=== PATIENT | male | born 1960 | race Caucasian/White ===

== ENCOUNTER 2017-06-16 09:22 | Inpatient (IN) ==
[2017-06-16] MEDS ORDERED: ASPIRIN 325 MG TABLET PO STA (10:12)
[2017-06-16] MEDS ORDERED: ACETAMINOPHEN 325 MG TABLET PO PRN (10:49)
[2017-06-16] MEDS ORDERED: KETOROLAC 15 MG/1 ML VIAL IV PRN (10:49)
[2017-06-16] MEDS ORDERED: ONDANSETRON 4 MG/2 ML VIAL IV PRN ×2 (10:49→13:58)
[2017-06-16] MEDS ORDERED: PIPERACILLIN/TAZOBACTAM 3,375 MG in SODIUM CHLORIDE 0.9% 100 ML IV SCH (11:00)
[2017-06-16] MEDS ORDERED: DEXTROSE 5% NACL 0.45% 1,000 ML IV SCH (11:00)
[2017-06-16] MEDS ORDERED: ASPIRIN 325 MG TABLET ONE (11:09)
[2017-06-16 11:26] LABS: Basophils # 0.1 10*3/uL (0.0-0.2); Basophils % 0.5 % (0.0-0.8); Eosinophils # 0.1 10*3/uL (0.0-0.87); Eosinophils % 0.4 % (0.00-10.9); Hematocrit 46.8 VOL% (42.0-52.0); Hemoglobin 16.3 GM/DL (14.0-18.0); Immature Granulocytes % 0.6 %; Immature Granulocytes Absolute 0.11 #; Lymphocytes # 1.9 10*3/uL (1.4-4.0); Lymphocytes % 9.9 % (21.2-54.2); Mean Corpuscular HGB Conc 34.8 GM/DL (32-36); Mean Corpuscular Hemoglobin 33 PG (27-34); Mean Corpuscular Volume 94.2 FL (87-102); Mean Platelet Volume 9.7 FL (9.6-12.0); Monocytes # 1.1 10*3/uL (0.11-0.8); Monocytes % 5.6 % (1.7-12.7); Neutrophils # 15.9 10*3/uL (1.4-7.4); Platelet Count 289 T/CUMM (130-400); Red Blood Count 4.97 MC/CUMM (3.8-5.5); Red Cell Distribution Width 13.2 % (9.3-17.3); White Blood Count 19.2 T/CUMM (4-12)
[2017-06-16 12:08] LABS: Albumin 3.6 G/DL (3.4-5.0); Bilirubin,Total 0.5 MG/DL (0.2-1.0); Osmolality,Calculated 280.4 MOS/KG (273-304); Potassium 4.1 MMOL/L (3.5-5.1); Total Protein 6.4 G/DL (6.4-8.3)
[2017-06-16 12:09] LABS: Troponin I Only < 0.015 NG/ML (0.00-0.045)
[2017-06-16] MEDS ORDERED: IPRATROPIUM 500 MCG/2.5 ML NEB RESP TX PRN (12:51)
[2017-06-16 13:02] LABS: ABG HCO3 25.3 MMOL/L (20-26); ABG Oxygen Saturation 97.6 % (95-100); ABG PH 7.333 (7.35-7.45); ABG PO2 96.9 MM HG (80-95); ABG TCO2 23.9 MMOL/L (23-27); Allen Test Positive
[2017-06-16] MEDS: HYDROmorphone 2 MG/1 ML VIAL IV PRN ×5 (13:02→22:35)
[2017-06-16] MEDS: ALBUTEROL 2.5 MG/3 ML NEB RESP TX SCH ×4 (13:03→22:00)
[2017-06-16] MEDS: THEOPHYLLINE ER 300 MG TABLET PO SCH (13:33)
[2017-06-16] MEDS: DEXTROSE 5% NACL 0.45% 1,000 ML IV SCH ×2 (14:12→22:46)
[2017-06-16] MEDS: PANTOPRAZOLE 40 MG TABLET PO SCH (14:19)
[2017-06-16] MEDS: PIPERACILLIN/TAZOBACTAM 3,375 MG in SODIUM CHLORIDE 0.9% 100 ML IV SCH ×2 (15:33→23:59)
[2017-06-16 16:06] LABS: ABG Base Excess 1.4 MMOL/L (-2.5-2.5); ABG HCO3 25.6 MMOL/L (20-26); ABG Oxygen Saturation 97.1 % (95-100); ABG PCO2 59.8 MM HG (35-48); ABG PH 7.308 (7.35-7.45); ABG PO2 97.8 MM HG (80-95); ABG TCO2 25.4 MMOL/L (23-27)
[2017-06-16] MEDS: DICLOFENAC 1% GEL 100 GM TUBE TOP SCH ×3 (18:22→20:48)
[2017-06-16] MEDS: KETOROLAC 15 MG/1 ML VIAL IV PRN (19:55)
[2017-06-16] MEDS: traZODone 50 MG TABLET PO SCH (20:34)
[2017-06-16] MEDS: GLYCOPYRROLATE INH SCH (20:36)
[2017-06-16] MEDS: FORMOTEROL FUM INH SCH (20:36)
[2017-06-16] MEDS: FLUTICASONE 50 MCG NASAL SPRAY 16 GM BOTTLE BOTH NARES SCH (20:43)
[2017-06-17] MEDS: HYDROmorphone 2 MG/1 ML VIAL IV PRN ×6 (00:29→14:08)
[2017-06-17] MEDS: KETOROLAC 15 MG/1 ML VIAL IV PRN ×2 (02:40→12:09)
[2017-06-17] MEDS: ALBUTEROL 2.5 MG/3 ML NEB RESP TX SCH ×6 (02:48→22:48)
[2017-06-17 05:06] LABS: INR 0.9; PT Patient Result 9.8 SECS; Partial Thromboplastin Time 26.1 SECS (0-40)
[2017-06-17 05:20] LABS: Calcium 8.6 MG/DL (8.5-10.1); Osmolality,Calculated 279.5 MOS/KG (273-304); Potassium 4.5 MMOL/L (3.5-5.1)
[2017-06-17 06:03] LABS: Basophils % 0.2 % (0.0-0.8); Eosinophils # 0.1 10*3/uL (0.0-0.87); Eosinophils % 0.7 % (0.00-10.9); Hematocrit 48.1 VOL% (42.0-52.0); Hemoglobin 16.1 GM/DL (14.0-18.0); Immature Granulocytes % 0.6 %; Immature Granulocytes Absolute 0.11 #; Lymphocytes # 1.1 10*3/uL (1.4-4.0); Lymphocytes % 6.3 % (21.2-54.2); Mean Corpuscular HGB Conc 33.5 GM/DL (32-36); Mean Corpuscular Hemoglobin 33 PG (27-34); Mean Corpuscular Volume 97.6 FL (87-102); Mean Platelet Volume 10.2 FL (9.6-12.0); Monocytes # 0.8 10*3/uL (0.11-0.8); Monocytes % 4.4 % (1.7-12.7); Neutrophils # 15.6 10*3/uL (1.4-7.4); Neutrophils % 87.8 % (38.7-73.9); Platelet Count 277 T/CUMM (130-400); Red Blood Count 4.93 MC/CUMM (3.8-5.5); Red Cell Distribution Width 13.7 % (9.3-17.3); White Blood Count 17.8 T/CUMM (4-12)
[2017-06-17] MEDS: PIPERACILLIN/TAZOBACTAM 3,375 MG in SODIUM CHLORIDE 0.9% 100 ML IV SCH ×2 (07:44→16:46)
[2017-06-17 07:59] LABS: ABG Base Excess 0.1 MMOL/L (-2.5-2.5); ABG HCO3 29.6 MMOL/L (20-26); ABG Oxygen Saturation 97.3 % (95-100); ABG PCO2 68.3 MM HG (35-48); ABG PH 7.254 (7.35-7.45); ABG PO2 98.4 MM HG (80-95); ABG TCO2 31.6 MMOL/L (23-27)
[2017-06-17] MEDS ORDERED: PANTOPRAZOLE 40 MG TABLET PO SCH (09:00)
[2017-06-17] MEDS: PANTOPRAZOLE 40 MG TABLET PO SCH (11:09)
[2017-06-17] MEDS: METOPROLOL SUCCINATE XL 25 MG TABLET PO SCH (11:09)
[2017-06-17] MEDS: THEOPHYLLINE ER 300 MG TABLET PO SCH ×2 (11:09→20:25)
[2017-06-17] MEDS: TAMSULOSIN 0.4 MG CAPSULE PO SCH (11:09)
[2017-06-17] MEDS: FLUTICASONE 50 MCG NASAL SPRAY 16 GM BOTTLE BOTH NARES SCH ×2 (11:09→20:33)
[2017-06-17] MEDS: MONTELUKAST 10 MG TABLET PO SCH (11:09)
[2017-06-17] MEDS: DICLOFENAC 1% GEL 100 GM TUBE TOP SCH ×4 (11:10→20:33)
[2017-06-17] MEDS: GLYCOPYRROLATE INH SCH ×2 (11:11→20:25)
[2017-06-17] MEDS: FORMOTEROL FUM INH SCH ×2 (11:11→20:25)
[2017-06-17] MEDS ORDERED: NALOXONE 0.4 MG/ML VIAL IV PRN (16:11)
[2017-06-17] MEDS: HYDROmorphone PCA 30 MG/30 ML SYRINGE IV SCH (16:47)
[2017-06-17] MEDS: SODIUM CHLORIDE 0.9% 1,000 ML IV SCH (19:00)
[2017-06-17] MEDS: traZODone 50 MG TABLET PO SCH (20:25)
[2017-06-18] MEDS: KETOROLAC 15 MG/1 ML VIAL IV PRN (02:02)
[2017-06-18 03:14] LABS: ABG Base Excess 1.6 MMOL/L (-2.5-2.5); ABG HCO3 25.7 MMOL/L (20-26); ABG Oxygen Saturation 93.6 % (95-100); ABG PH 7.233 (7.35-7.45); ABG PO2 71.1 MM HG (80-95); ABG TCO2 28.8 MMOL/L (23-27); Pt O2 Delivery Device Venturi Mask
[2017-06-18 03:16] LABS: ABG PCO2 78.7 MM HG (35-48)
[2017-06-18] MEDS: ALBUTEROL 2.5 MG/3 ML NEB RESP TX SCH ×5 (03:31→19:29)
[2017-06-18] MEDS: GLYCOPYRROLATE INH SCH ×2 (09:30→21:30)
[2017-06-18] MEDS: FORMOTEROL FUM INH SCH ×2 (09:30→21:30)
[2017-06-18] MEDS: MONTELUKAST 10 MG TABLET PO SCH (09:54)
[2017-06-18] MEDS: THEOPHYLLINE ER 300 MG TABLET PO SCH ×2 (09:54→21:27)
[2017-06-18] MEDS: METOPROLOL SUCCINATE XL 25 MG TABLET PO SCH (09:54)
[2017-06-18] MEDS: PANTOPRAZOLE 40 MG TABLET PO SCH (09:54)
[2017-06-18] MEDS: TAMSULOSIN 0.4 MG CAPSULE PO SCH (09:54)
[2017-06-18] MEDS: predniSONE 10 MG TABLET PO SCH (09:54)
[2017-06-18] MEDS: PIPERACILLIN/TAZOBACTAM 3,375 MG in SODIUM CHLORIDE 0.9% 100 ML IV SCH ×3 (09:55→18:40)
[2017-06-18] MEDS: FLUTICASONE 50 MCG NASAL SPRAY 16 GM BOTTLE BOTH NARES SCH ×2 (09:55→21:31)
[2017-06-18] MEDS: DICLOFENAC 1% GEL 100 GM TUBE TOP SCH ×4 (09:56→21:31)
[2017-06-18] MEDS: methylPREDNISolone SOD SUC 40 MG/1 ML VIAL IV SCH ×2 (16:25→23:20)
[2017-06-18] MEDS: LIDOCAINE 5% PATCH TRANSDERM SCH (16:25)
[2017-06-18] MEDS: HYDROmorphone PCA 30 MG/30 ML SYRINGE IV SCH (18:41)
[2017-06-18] MEDS: traZODone 50 MG TABLET PO SCH (21:27)
[2017-06-18] MEDS: SODIUM CHLORIDE 0.9% 1,000 ML IV SCH (21:31)
[2017-06-19] MEDS: ALBUTEROL 2.5 MG/3 ML NEB RESP TX SCH ×6 (00:11→20:29)
[2017-06-19] MEDS: PIPERACILLIN/TAZOBACTAM 3,375 MG in SODIUM CHLORIDE 0.9% 100 ML IV SCH ×4 (00:52→23:25)
[2017-06-19 03:41] LABS: ABG Base Excess -0.6 MMOL/L (-2.5-2.5); ABG HCO3 23.9 MMOL/L (20-26); ABG Oxygen Saturation 97.4 % (95-100); ABG PH 7.263 (7.35-7.45); ABG TCO2 24.9 MMOL/L (23-27)
[2017-06-19] MEDS: IPRATROPIUM 500 MCG/2.5 ML NEB RESP TX SCH ×3 (11:18→20:29)
[2017-06-19] MEDS: MONTELUKAST 10 MG TABLET PO SCH (12:01)
[2017-06-19] MEDS: METOPROLOL SUCCINATE XL 25 MG TABLET PO SCH (12:01)
[2017-06-19] MEDS: FORMOTEROL FUM INH SCH ×2 (12:01→21:19)
[2017-06-19] MEDS: FLUTICASONE 50 MCG NASAL SPRAY 16 GM BOTTLE BOTH NARES SCH ×2 (12:01→21:18)
[2017-06-19] MEDS: PANTOPRAZOLE 40 MG TABLET PO SCH (12:01)
[2017-06-19] MEDS: THEOPHYLLINE ER 300 MG TABLET PO SCH ×2 (12:01→21:17)
[2017-06-19] MEDS: GLYCOPYRROLATE INH SCH ×2 (12:01→21:19)
[2017-06-19] MEDS: TAMSULOSIN 0.4 MG CAPSULE PO SCH (12:01)
[2017-06-19] MEDS: DICLOFENAC 1% GEL 100 GM TUBE TOP SCH ×4 (12:02→21:20)
[2017-06-19] MEDS: LIDOCAINE 5% PATCH TRANSDERM SCH (12:12)
[2017-06-19] MEDS: methylPREDNISolone SOD SUC 40 MG/1 ML VIAL IV SCH ×2 (12:12→23:23)
[2017-06-19] MEDS: HYDROmorphone PCA 30 MG/30 ML SYRINGE IV SCH (19:52)
[2017-06-19] MEDS: traZODone 50 MG TABLET PO SCH (21:17)
[2017-06-20] MEDS: ALBUTEROL 2.5 MG/3 ML NEB RESP TX SCH ×6 (01:00→19:27)
[2017-06-20] MEDS: IPRATROPIUM 500 MCG/2.5 ML NEB RESP TX SCH ×6 (01:00→19:27)
[2017-06-20 02:44] LABS: ABG Base Excess 0.1 MMOL/L (-2.5-2.5); ABG HCO3 24.4 MMOL/L (20-26); ABG Oxygen Saturation 93.5 % (95-100); ABG PCO2 58.6 MM HG (35-48); ABG PH 7.293 (7.35-7.45); ABG PO2 68.7 MM HG (80-95); ABG TCO2 24.7 MMOL/L (23-27)
[2017-06-20] MEDS: SODIUM CHLORIDE 0.9% 1,000 ML IV SCH ×2 (04:01→21:06)
[2017-06-20 05:43] LABS: Basophils % 0.2 % (0.0-0.8); Hematocrit 43.6 VOL% (42.0-52.0); Hemoglobin 14.9 GM/DL (14.0-18.0); Immature Granulocytes % 0.7 %; Immature Granulocytes Absolute 0.14 #; Lymphocytes # 0.4 10*3/uL (1.4-4.0); Lymphocytes % 2.1 % (21.2-54.2); Mean Corpuscular HGB Conc 34.2 GM/DL (32-36); Mean Corpuscular Hemoglobin 33 PG (27-34); Mean Corpuscular Volume 96.2 FL (87-102); Mean Platelet Volume 9.6 FL (9.6-12.0); Monocytes # 0.6 10*3/uL (0.11-0.8); Monocytes % 3.1 % (1.7-12.7); Neutrophils # 17.8 10*3/uL (1.4-7.4); Neutrophils % 93.9 % (38.7-73.9); Platelet Count 297 T/CUMM (130-400); Red Blood Count 4.53 MC/CUMM (3.8-5.5); Red Cell Distribution Width 12.8 % (9.3-17.3); White Blood Count 18.9 T/CUMM (4-12)
[2017-06-20 06:03] LABS: Giant Platelets Few; Hypochromasia 1+; Platelet Estimate Adequate; Segmented Neutrophils 97 % (50-85); Total Cells Counted 100
[2017-06-20 06:16] LABS: Calcium 8.8 MG/DL (8.5-10.1); Magnesium 2.3 MG/DL (1.8-2.4); Osmolality,Calculated 285.5 MOS/KG (273-304); Potassium 3.8 MMOL/L (3.5-5.1)
[2017-06-20] MEDS: METOPROLOL SUCCINATE XL 25 MG TABLET PO SCH (08:50)
[2017-06-20] MEDS: THEOPHYLLINE ER 300 MG TABLET PO SCH ×2 (08:50→21:04)
[2017-06-20] MEDS: PANTOPRAZOLE 40 MG TABLET PO SCH (08:50)
[2017-06-20] MEDS: MONTELUKAST 10 MG TABLET PO SCH (08:50)
[2017-06-20] MEDS: TAMSULOSIN 0.4 MG CAPSULE PO SCH (08:50)
[2017-06-20] MEDS: FLUTICASONE 50 MCG NASAL SPRAY 16 GM BOTTLE BOTH NARES SCH ×2 (08:51→21:05)
[2017-06-20] MEDS: FORMOTEROL FUM INH SCH ×2 (08:52→21:06)
[2017-06-20] MEDS: DICLOFENAC 1% GEL 100 GM TUBE TOP SCH ×4 (08:52→21:06)
[2017-06-20] MEDS: GLYCOPYRROLATE INH SCH ×2 (08:52→21:06)
[2017-06-20] MEDS: LIDOCAINE 5% PATCH TRANSDERM SCH (09:00)
[2017-06-20] MEDS: PIPERACILLIN/TAZOBACTAM 3,375 MG in SODIUM CHLORIDE 0.9% 100 ML IV SCH ×2 (09:07→17:43)
[2017-06-20] MEDS: predniSONE 10 MG TABLET PO SCH ×2 (09:11→09:52)
[2017-06-20] MEDS: methylPREDNISolone SOD SUC 40 MG/1 ML VIAL IV SCH (10:40)
[2017-06-20] MEDS: HYDROmorphone PCA 30 MG/30 ML SYRINGE IV SCH (16:38)
[2017-06-20] MEDS: traZODone 50 MG TABLET PO SCH (21:04)
[2017-06-21] MEDS: methylPREDNISolone SOD SUC 40 MG/1 ML VIAL IV SCH ×3 (00:02→23:57)
[2017-06-21] MEDS: ALBUTEROL 2.5 MG/3 ML NEB RESP TX SCH ×6 (00:20→20:56)
[2017-06-21] MEDS: IPRATROPIUM 500 MCG/2.5 ML NEB RESP TX SCH ×6 (00:20→20:56)
[2017-06-21] MEDS: HYDROmorphone PCA 30 MG/30 ML SYRINGE IV SCH ×2 (00:28→16:54)
[2017-06-21] MEDS: PIPERACILLIN/TAZOBACTAM 3,375 MG in SODIUM CHLORIDE 0.9% 100 ML IV SCH ×3 (02:20→17:37)
[2017-06-21 03:41] LABS: Allen Test Positive
[2017-06-21 03:46] LABS: ABG Base Excess -2.6 MMOL/L (-2.5-2.5); ABG HCO3 27.5 MMOL/L (20-26); ABG Oxygen Saturation 94.2 % (95-100); ABG PO2 79.1 MM HG (80-95); ABG TCO2 29.7 MMOL/L (23-27)
[2017-06-21 04:59] LABS: Basophils % 0.2 % (0.0-0.8); Eosinophils % 0.1 % (0.00-10.9); Hematocrit 44.3 VOL% (42.0-52.0); Hemoglobin 14.9 GM/DL (14.0-18.0); Immature Granulocytes % 0.7 %; Immature Granulocytes Absolute 0.12 #; Lymphocytes # 0.4 10*3/uL (1.4-4.0); Lymphocytes % 2.4 % (21.2-54.2); Mean Corpuscular HGB Conc 33.6 GM/DL (32-36); Mean Corpuscular Hemoglobin 33 PG (27-34); Mean Corpuscular Volume 97.6 FL (87-102); Mean Platelet Volume 9.8 FL (9.6-12.0); Monocytes # 0.5 10*3/uL (0.11-0.8); Neutrophils # 15.3 10*3/uL (1.4-7.4); Neutrophils % 93.6 % (38.7-73.9); Platelet Count 313 T/CUMM (130-400); Red Blood Count 4.54 MC/CUMM (3.8-5.5); Red Cell Distribution Width 13.1 % (9.3-17.3); White Blood Count 16.3 T/CUMM (4-12)
[2017-06-21 05:32] LABS: Calcium 8.9 MG/DL (8.5-10.1); Magnesium 2.4 MG/DL (1.8-2.4); Osmolality,Calculated 289.1 MOS/KG (273-304)
[2017-06-21 06:18] LABS: Lymphocytes 6 % (20-55); Platelet Estimate Adequate; Polychromasia Slight; Segmented Neutrophils 89 % (50-85); Total Cells Counted 100
[2017-06-21] MEDS: FLUTICASONE 50 MCG NASAL SPRAY 16 GM BOTTLE BOTH NARES SCH ×2 (09:14→21:22)
[2017-06-21] MEDS: TAMSULOSIN 0.4 MG CAPSULE PO SCH (09:16)
[2017-06-21] MEDS: MONTELUKAST 10 MG TABLET PO SCH (09:16)
[2017-06-21] MEDS: PANTOPRAZOLE 40 MG TABLET PO SCH (09:16)
[2017-06-21] MEDS: THEOPHYLLINE ER 300 MG TABLET PO SCH (09:16)
[2017-06-21] MEDS: METOPROLOL SUCCINATE XL 25 MG TABLET PO SCH (09:16)
[2017-06-21] MEDS: DICLOFENAC 1% GEL 100 GM TUBE TOP SCH ×4 (09:16→21:22)
[2017-06-21] MEDS: FORMOTEROL FUM INH SCH ×2 (09:17→21:22)
[2017-06-21] MEDS: LIDOCAINE 5% PATCH TRANSDERM SCH ×2 (09:17→21:23)
[2017-06-21] MEDS: GLYCOPYRROLATE INH SCH ×2 (09:17→21:22)
[2017-06-21] MEDS: traZODone 50 MG TABLET PO SCH (21:20)
[2017-06-21] MEDS: SODIUM CHLORIDE 0.9% 1,000 ML IV SCH (21:28)
[2017-06-22] MEDS: ALBUTEROL 2.5 MG/3 ML NEB RESP TX SCH ×7 (00:28→23:04)
[2017-06-22] MEDS: IPRATROPIUM 500 MCG/2.5 ML NEB RESP TX SCH ×7 (00:28→23:04)
[2017-06-22] MEDS: PIPERACILLIN/TAZOBACTAM 3,375 MG in SODIUM CHLORIDE 0.9% 100 ML IV SCH ×3 (03:07→17:39)
[2017-06-22 04:37] LABS: ABG Base Excess -2.4 MMOL/L (-2.5-2.5); ABG HCO3 22.4 MMOL/L (20-26); ABG Oxygen Saturation 96.6 % (95-100); ABG PCO2 56.5 MM HG (35-48); ABG PO2 89.6 MM HG (80-95); ABG TCO2 22.6 MMOL/L (23-27); Allen Test Positive
[2017-06-22] MEDS: TAMSULOSIN 0.4 MG CAPSULE PO SCH (08:50)
[2017-06-22] MEDS: MONTELUKAST 10 MG TABLET PO SCH (08:50)
[2017-06-22] MEDS: FLUTICASONE 50 MCG NASAL SPRAY 16 GM BOTTLE BOTH NARES SCH ×2 (08:50→21:08)
[2017-06-22] MEDS: predniSONE 10 MG TABLET PO SCH (08:50)
[2017-06-22] MEDS: METOPROLOL SUCCINATE XL 25 MG TABLET PO SCH (08:50)
[2017-06-22] MEDS: PANTOPRAZOLE 40 MG TABLET PO SCH (08:50)
[2017-06-22] MEDS: GLYCOPYRROLATE INH SCH ×2 (08:51→21:09)
[2017-06-22] MEDS: FORMOTEROL FUM INH SCH ×2 (08:51→21:09)
[2017-06-22] MEDS: DICLOFENAC 1% GEL 100 GM TUBE TOP SCH ×4 (08:51→21:09)
[2017-06-22] MEDS: methylPREDNISolone SOD SUC 40 MG/1 ML VIAL IV SCH (10:52)
[2017-06-22] MEDS: THEOPHYLLINE ER 300 MG TABLET PO SCH (17:41)
[2017-06-22] MEDS: HYDROmorphone PCA 30 MG/30 ML SYRINGE IV SCH (17:43)
[2017-06-22] MEDS: traZODone 50 MG TABLET PO SCH (21:08)
[2017-06-22] MEDS: LIDOCAINE 5% PATCH TRANSDERM SCH (21:09)
[2017-06-22] MEDS: SODIUM CHLORIDE 0.9% 1,000 ML IV SCH (21:13)
[2017-06-23] MEDS: methylPREDNISolone SOD SUC 40 MG/1 ML VIAL IV SCH ×2 (00:33→10:42)
[2017-06-23] MEDS: PIPERACILLIN/TAZOBACTAM 3,375 MG in SODIUM CHLORIDE 0.9% 100 ML IV SCH ×3 (03:11→17:06)
[2017-06-23] MEDS: IPRATROPIUM 500 MCG/2.5 ML NEB RESP TX SCH ×5 (03:28→20:44)
[2017-06-23] MEDS: ALBUTEROL 2.5 MG/3 ML NEB RESP TX SCH ×5 (03:28→20:44)
[2017-06-23] MEDS: THEOPHYLLINE ER 300 MG TABLET PO SCH ×2 (09:21→17:03)
[2017-06-23] MEDS: TAMSULOSIN 0.4 MG CAPSULE PO SCH (09:21)
[2017-06-23] MEDS: METOPROLOL SUCCINATE XL 25 MG TABLET PO SCH (09:22)
[2017-06-23] MEDS: FORMOTEROL FUM INH SCH ×2 (09:22→21:20)
[2017-06-23] MEDS: GLYCOPYRROLATE INH SCH ×2 (09:22→21:20)
[2017-06-23] MEDS: MONTELUKAST 10 MG TABLET PO SCH (09:22)
[2017-06-23] MEDS: PANTOPRAZOLE 40 MG TABLET PO SCH (09:22)
[2017-06-23] MEDS: FLUTICASONE 50 MCG NASAL SPRAY 16 GM BOTTLE BOTH NARES SCH ×2 (09:22→21:20)
[2017-06-23] MEDS: DICLOFENAC 1% GEL 100 GM TUBE TOP SCH ×4 (09:23→21:22)
[2017-06-23] MEDS: traZODone 50 MG TABLET PO SCH (21:18)
[2017-06-23] MEDS: HYDROmorphone PCA 30 MG/30 ML SYRINGE IV SCH ×2 (21:19→22:16)
[2017-06-23] MEDS: SODIUM CHLORIDE 0.9% 1,000 ML IV SCH (21:20)
[2017-06-23] MEDS: LIDOCAINE 5% PATCH TRANSDERM SCH (21:20)
[2017-06-24] MEDS: methylPREDNISolone SOD SUC 40 MG/1 ML VIAL IV SCH ×2 (00:02→11:48)
[2017-06-24] MEDS: IPRATROPIUM 500 MCG/2.5 ML NEB RESP TX SCH ×6 (00:44→19:21)
[2017-06-24] MEDS: ALBUTEROL 2.5 MG/3 ML NEB RESP TX SCH ×6 (00:44→19:21)
[2017-06-24] MEDS: PIPERACILLIN/TAZOBACTAM 3,375 MG in SODIUM CHLORIDE 0.9% 100 ML IV SCH ×3 (01:45→18:01)
[2017-06-24] MEDS: THEOPHYLLINE ER 300 MG TABLET PO SCH ×2 (09:05→17:59)
[2017-06-24] MEDS: METOPROLOL SUCCINATE XL 25 MG TABLET PO SCH (09:05)
[2017-06-24] MEDS: PANTOPRAZOLE 40 MG TABLET PO SCH (09:06)
[2017-06-24] MEDS: predniSONE 10 MG TABLET PO SCH (09:06)
[2017-06-24] MEDS: MONTELUKAST 10 MG TABLET PO SCH (09:06)
[2017-06-24] MEDS: TAMSULOSIN 0.4 MG CAPSULE PO SCH (09:06)
[2017-06-24] MEDS: FLUTICASONE 50 MCG NASAL SPRAY 16 GM BOTTLE BOTH NARES SCH ×2 (09:07→21:24)
[2017-06-24] MEDS: DICLOFENAC 1% GEL 100 GM TUBE TOP SCH ×4 (09:07→21:24)
[2017-06-24] MEDS: FORMOTEROL FUM INH SCH ×2 (09:07→21:24)
[2017-06-24] MEDS: GLYCOPYRROLATE INH SCH ×2 (09:07→21:24)
[2017-06-24] MEDS ORDERED: ALBUTEROL 2.5 MG/3 ML NEB RESP TX ONE (19:05)
[2017-06-24] MEDS: traZODone 50 MG TABLET PO SCH (21:22)
[2017-06-24] MEDS: ACETAMINOPHEN 325 MG TABLET PO PRN (21:22)
[2017-06-24] MEDS: LIDOCAINE 5% PATCH TRANSDERM SCH (21:24)
[2017-06-24] MEDS: HYDROmorphone PCA 30 MG/30 ML SYRINGE IV SCH (21:54)
[2017-06-24] MEDS: SODIUM CHLORIDE 0.9% 1,000 ML IV SCH (21:55)
[2017-06-25] MEDS: IPRATROPIUM 500 MCG/2.5 ML NEB RESP TX SCH ×6 (00:47→19:20)
[2017-06-25] MEDS: ALBUTEROL 2.5 MG/3 ML NEB RESP TX SCH ×6 (00:47→19:20)
[2017-06-25] MEDS: methylPREDNISolone SOD SUC 40 MG/1 ML VIAL IV SCH ×3 (00:57→23:17)
[2017-06-25] MEDS: ACETAMINOPHEN 325 MG TABLET PO PRN ×3 (00:58→14:04)
[2017-06-25] MEDS: PIPERACILLIN/TAZOBACTAM 3,375 MG in SODIUM CHLORIDE 0.9% 100 ML IV SCH ×3 (01:02→17:41)
[2017-06-25 07:57] LABS: Basophils % 0.2 % (0.0-0.8); Eosinophils % 0.1 % (0.00-10.9); Hematocrit 43.7 VOL% (42.0-52.0); Hemoglobin 14.9 GM/DL (14.0-18.0); Immature Granulocytes % 1.8 %; Immature Granulocytes Absolute 0.28 #; Lymphocytes # 0.8 10*3/uL (1.4-4.0); Lymphocytes % 4.8 % (21.2-54.2); Mean Corpuscular HGB Conc 34.1 GM/DL (32-36); Mean Corpuscular Hemoglobin 33 PG (27-34); Mean Platelet Volume 9.6 FL (9.6-12.0); Monocytes # 0.4 10*3/uL (0.11-0.8); Monocytes % 2.8 % (1.7-12.7); Neutrophils # 14.2 10*3/uL (1.4-7.4); Neutrophils % 90.3 % (38.7-73.9); Platelet Count 345 T/CUMM (130-400); Red Blood Count 4.55 MC/CUMM (3.8-5.5); Red Cell Distribution Width 13.3 % (9.3-17.3); White Blood Count 15.7 T/CUMM (4-12)
[2017-06-25] MEDS: MONTELUKAST 10 MG TABLET PO SCH (08:00)
[2017-06-25] MEDS: TAMSULOSIN 0.4 MG CAPSULE PO SCH (08:00)
[2017-06-25] MEDS: DICLOFENAC 1% GEL 100 GM TUBE TOP SCH ×4 (08:00→21:15)
[2017-06-25] MEDS: PANTOPRAZOLE 40 MG TABLET PO SCH (08:00)
[2017-06-25] MEDS: THEOPHYLLINE ER 300 MG TABLET PO SCH ×2 (08:00→17:36)
[2017-06-25] MEDS: METOPROLOL SUCCINATE XL 25 MG TABLET PO SCH (08:00)
[2017-06-25] MEDS: FORMOTEROL FUM INH SCH ×2 (08:01→21:15)
[2017-06-25] MEDS: FLUTICASONE 50 MCG NASAL SPRAY 16 GM BOTTLE BOTH NARES SCH ×2 (08:01→21:14)
[2017-06-25] MEDS: GLYCOPYRROLATE INH SCH ×2 (08:01→21:15)
[2017-06-25 08:26] LABS: Hypochromasia 1+; Lymphocytes 4 % (20-55); Segmented Neutrophils 94 % (50-85); Total Cells Counted 100
[2017-06-25 08:27] LABS: Microcytosis 1+; Platelet Estimate Normal
[2017-06-25 08:33] LABS: Calcium 8.8 MG/DL (8.5-10.1); Osmolality,Calculated 288.1 MOS/KG (273-304); Potassium 4.4 MMOL/L (3.5-5.1)
[2017-06-25] MEDS: HYDROmorphone 2 MG/1 ML VIAL IV PRN ×3 (09:18→21:13)
[2017-06-25] MEDS: traZODone 50 MG TABLET PO SCH (21:12)
[2017-06-25] MEDS: LIDOCAINE 5% PATCH TRANSDERM SCH (21:14)
[2017-06-26] MEDS: ALBUTEROL 2.5 MG/3 ML NEB RESP TX SCH ×6 (00:03→19:10)
[2017-06-26] MEDS: IPRATROPIUM 500 MCG/2.5 ML NEB RESP TX SCH ×6 (00:03→19:10)
[2017-06-26] MEDS: ACETAMINOPHEN 325 MG TABLET PO PRN ×3 (01:36→12:55)
[2017-06-26] MEDS: PIPERACILLIN/TAZOBACTAM 3,375 MG in SODIUM CHLORIDE 0.9% 100 ML IV SCH ×3 (01:55→17:02)
[2017-06-26] MEDS: HYDROmorphone 2 MG/1 ML VIAL IV PRN ×4 (03:42→21:21)
[2017-06-26] MEDS: PANTOPRAZOLE 40 MG TABLET PO SCH (08:23)
[2017-06-26] MEDS: TAMSULOSIN 0.4 MG CAPSULE PO SCH (08:23)
[2017-06-26] MEDS: predniSONE 10 MG TABLET PO SCH (08:23)
[2017-06-26] MEDS: THEOPHYLLINE ER 300 MG TABLET PO SCH ×2 (08:23→17:02)
[2017-06-26] MEDS: METOPROLOL SUCCINATE XL 25 MG TABLET PO SCH (08:24)
[2017-06-26] MEDS: MONTELUKAST 10 MG TABLET PO SCH (08:24)
[2017-06-26] MEDS: FLUTICASONE 50 MCG NASAL SPRAY 16 GM BOTTLE BOTH NARES SCH ×2 (08:24→21:17)
[2017-06-26] MEDS: GLYCOPYRROLATE INH SCH ×2 (08:25→21:17)
[2017-06-26] MEDS: DICLOFENAC 1% GEL 100 GM TUBE TOP SCH ×4 (08:25→21:22)
[2017-06-26] MEDS: FORMOTEROL FUM INH SCH ×2 (08:25→21:17)
[2017-06-26] MEDS: methylPREDNISolone SOD SUC 40 MG/1 ML VIAL IV SCH (10:27)
[2017-06-26] MEDS: traZODone 50 MG TABLET PO SCH (21:17)
[2017-06-26] MEDS: LIDOCAINE 5% PATCH TRANSDERM SCH (21:17)
[2017-06-27] MEDS: ALBUTEROL 2.5 MG/3 ML NEB RESP TX SCH ×6 (00:27→20:08)
[2017-06-27] MEDS: IPRATROPIUM 500 MCG/2.5 ML NEB RESP TX SCH ×6 (00:27→20:08)
[2017-06-27] MEDS: methylPREDNISolone SOD SUC 40 MG/1 ML VIAL IV SCH ×3 (02:55→22:39)
[2017-06-27] MEDS: PIPERACILLIN/TAZOBACTAM 3,375 MG in SODIUM CHLORIDE 0.9% 100 ML IV SCH ×2 (03:25→11:21)
[2017-06-27] MEDS: THEOPHYLLINE ER 300 MG TABLET PO SCH ×2 (08:36→17:31)
[2017-06-27] MEDS: METOPROLOL SUCCINATE XL 25 MG TABLET PO SCH (08:37)
[2017-06-27] MEDS: PANTOPRAZOLE 40 MG TABLET PO SCH (08:37)
[2017-06-27] MEDS: TAMSULOSIN 0.4 MG CAPSULE PO SCH (08:37)
[2017-06-27] MEDS: MONTELUKAST 10 MG TABLET PO SCH (08:37)
[2017-06-27] MEDS: FORMOTEROL FUM INH SCH ×2 (08:38→20:42)
[2017-06-27] MEDS: DICLOFENAC 1% GEL 100 GM TUBE TOP SCH ×4 (08:38→20:41)
[2017-06-27] MEDS: GLYCOPYRROLATE INH SCH ×2 (08:38→20:42)
[2017-06-27] MEDS: FLUTICASONE 50 MCG NASAL SPRAY 16 GM BOTTLE BOTH NARES SCH ×2 (08:38→20:41)
[2017-06-27] MEDS: oxyCODONE/ACETAMINOPHEN 5-325 MG TABLET PO PRN ×2 (12:29→20:41)
[2017-06-27] MEDS: traZODone 50 MG TABLET PO SCH (20:40)
[2017-06-27] MEDS: LIDOCAINE 5% PATCH TRANSDERM SCH (20:42)
[2017-06-28] MEDS: ALBUTEROL 2.5 MG/3 ML NEB RESP TX SCH ×7 (01:50→23:34)
[2017-06-28] MEDS: IPRATROPIUM 500 MCG/2.5 ML NEB RESP TX SCH ×7 (01:50→23:34)
[2017-06-28] MEDS: oxyCODONE/ACETAMINOPHEN 5-325 MG TABLET PO PRN ×4 (04:37→22:58)
[2017-06-28 05:12] LABS: Basophils % 0.2 % (0.0-0.8); Eosinophils % 0.1 % (0.00-10.9); Hematocrit 46.2 VOL% (42.0-52.0); Hemoglobin 15.2 GM/DL (14.0-18.0); Immature Granulocytes % 1.3 %; Immature Granulocytes Absolute 0.21 #; Lymphocytes # 0.8 10*3/uL (1.4-4.0); Mean Corpuscular HGB Conc 32.9 GM/DL (32-36); Mean Corpuscular Hemoglobin 32 PG (27-34); Mean Corpuscular Volume 96.7 FL (87-102); Mean Platelet Volume 9.9 FL (9.6-12.0); Monocytes # 0.4 10*3/uL (0.11-0.8); Monocytes % 2.3 % (1.7-12.7); Neutrophils # 14.8 10*3/uL (1.4-7.4); Neutrophils % 91.1 % (38.7-73.9); Platelet Count 308 T/CUMM (130-400); Red Blood Count 4.78 MC/CUMM (3.8-5.5); Red Cell Distribution Width 13.4 % (9.3-17.3); White Blood Count 16.2 T/CUMM (4-12)
[2017-06-28 05:36] LABS: Calcium 8.6 MG/DL (8.5-10.1); Magnesium 2.1 MG/DL (1.8-2.4); Osmolality,Calculated 284.5 MOS/KG (273-304); Potassium 4.2 MMOL/L (3.5-5.1)
[2017-06-28 05:49] LABS: Lymphocytes 2 % (20-55); Platelet Estimate Normal; Segmented Neutrophils 97 % (50-85); Total Cells Counted 100
[2017-06-28] MEDS: PANTOPRAZOLE 40 MG TABLET PO SCH (08:16)
[2017-06-28] MEDS: FLUTICASONE 50 MCG NASAL SPRAY 16 GM BOTTLE BOTH NARES SCH ×2 (08:16→21:26)
[2017-06-28] MEDS: TAMSULOSIN 0.4 MG CAPSULE PO SCH (08:16)
[2017-06-28] MEDS: THEOPHYLLINE ER 300 MG TABLET PO SCH ×2 (08:17→16:44)
[2017-06-28] MEDS: predniSONE 10 MG TABLET PO SCH (08:17)
[2017-06-28] MEDS: METOPROLOL SUCCINATE XL 25 MG TABLET PO SCH (08:17)
[2017-06-28] MEDS: MONTELUKAST 10 MG TABLET PO SCH (08:17)
[2017-06-28] MEDS: FORMOTEROL FUM INH SCH ×2 (08:18→21:27)
[2017-06-28] MEDS: GLYCOPYRROLATE INH SCH ×2 (08:18→21:27)
[2017-06-28] MEDS: DICLOFENAC 1% GEL 100 GM TUBE TOP SCH ×4 (08:19→21:27)
[2017-06-28 10:12] LABS: ABG Base Excess -3.2 MMOL/L (-2.5-2.5); ABG HCO3 22.5 MMOL/L (20-26); ABG Oxygen Saturation 93.2 % (95-100); ABG PCO2 42.6 MM HG (35-48); ABG PO2 65.6 MM HG (80-95); ABG TCO2 23.8 MMOL/L (23-27); Allen Test Positive; Pt O2 Delivery Device Room Air
[2017-06-28] MEDS: methylPREDNISolone SOD SUC 40 MG/1 ML VIAL IV SCH ×2 (11:06→22:58)
[2017-06-28] MEDS ORDERED: ALBUTEROL 2.5 MG/3 ML NEB RESP TX ONE ×2 (11:31→15:39)
[2017-06-28] MEDS: ACETAMINOPHEN 325 MG TABLET PO PRN (21:25)
[2017-06-28] MEDS: LIDOCAINE 5% PATCH TRANSDERM SCH (21:28)
[2017-06-28] MEDS: traZODone 50 MG TABLET PO SCH (21:31)
[2017-06-29] MEDS: ALBUTEROL 2.5 MG/3 ML NEB RESP TX SCH ×5 (03:46→19:09)
[2017-06-29] MEDS: IPRATROPIUM 500 MCG/2.5 ML NEB RESP TX SCH ×5 (03:46→19:09)
[2017-06-29] MEDS: oxyCODONE/ACETAMINOPHEN 5-325 MG TABLET PO PRN ×4 (04:58→23:50)
[2017-06-29] MEDS: THEOPHYLLINE ER 300 MG TABLET PO SCH ×2 (08:45→16:18)
[2017-06-29] MEDS: MONTELUKAST 10 MG TABLET PO SCH (08:45)
[2017-06-29] MEDS: PANTOPRAZOLE 40 MG TABLET PO SCH (08:45)
[2017-06-29] MEDS: METOPROLOL SUCCINATE XL 25 MG TABLET PO SCH (08:45)
[2017-06-29] MEDS: TAMSULOSIN 0.4 MG CAPSULE PO SCH (08:45)
[2017-06-29] MEDS: FLUTICASONE 50 MCG NASAL SPRAY 16 GM BOTTLE BOTH NARES SCH ×2 (08:46→21:38)
[2017-06-29] MEDS: FORMOTEROL FUM INH SCH ×2 (08:47→21:38)
[2017-06-29] MEDS: DICLOFENAC 1% GEL 100 GM TUBE TOP SCH ×4 (08:47→21:40)
[2017-06-29] MEDS: GLYCOPYRROLATE INH SCH ×2 (08:47→21:38)
[2017-06-29] MEDS: methylPREDNISolone SOD SUC 40 MG/1 ML VIAL IV SCH ×2 (11:23→23:50)
[2017-06-29] MEDS: ACETAMINOPHEN 325 MG TABLET PO PRN ×2 (16:32→21:39)
[2017-06-29] MEDS: traZODone 50 MG TABLET PO SCH (21:39)
[2017-06-29] MEDS: LIDOCAINE 5% PATCH TRANSDERM SCH (21:40)
[2017-06-30] MEDS: IPRATROPIUM 500 MCG/2.5 ML NEB RESP TX SCH ×3 (00:31→07:15)
[2017-06-30] MEDS: ALBUTEROL 2.5 MG/3 ML NEB RESP TX SCH ×3 (00:31→07:15)
[2017-06-30] MEDS: oxyCODONE/ACETAMINOPHEN 5-325 MG TABLET PO PRN (07:04)
[2017-06-30] MEDS: THEOPHYLLINE ER 300 MG TABLET PO SCH (08:37)
[2017-06-30] MEDS: PANTOPRAZOLE 40 MG TABLET PO SCH (08:37)
[2017-06-30] MEDS: TAMSULOSIN 0.4 MG CAPSULE PO SCH (08:37)
[2017-06-30] MEDS: predniSONE 10 MG TABLET PO SCH (08:37)
[2017-06-30] MEDS: MONTELUKAST 10 MG TABLET PO SCH (08:37)
[2017-06-30] MEDS: FLUTICASONE 50 MCG NASAL SPRAY 16 GM BOTTLE BOTH NARES SCH (08:38)
[2017-06-30] MEDS: FORMOTEROL FUM INH SCH (08:39)
[2017-06-30] MEDS: GLYCOPYRROLATE INH SCH (08:39)
[2017-06-30] MEDS: METOPROLOL SUCCINATE XL 25 MG TABLET PO SCH (08:43)
[2017-06-30] MEDS: DICLOFENAC 1% GEL 100 GM TUBE TOP SCH ×2 (08:43→14:02)
[2017-06-30 11:54] VITALS: BP 116/77
[2017-06-30] MEDS: ACETAMINOPHEN 325 MG TABLET PO PRN (12:50)
[2017-06-30] MEDS: methylPREDNISolone SOD SUC 40 MG/1 ML VIAL IV SCH (12:52)
== END 2017-06-30 14:19 | disposition home or self-care (01) | DRG 200 ==
LOC: EDBD → EDUNIT# → N.ED 09:22 → N.EDINP 11:53 → N.ICU 12:43 → N.TELES 06-20 10:47
PROVIDERS: ADMIT Specialist; ATTEND Specialist

== ENCOUNTER 2017-07-30 12:16 | Inpatient (IN) ==
[2017-07-30] MEDS ORDERED: ALBUTEROL/IPRATROPIUM 3 ML NEB RESP TX PRN (12:31)
[2017-07-30 13:27] LABS: Basophils % 0.2 % (0.0-0.8); Hematocrit 40.6 VOL% (42.0-52.0); Immature Granulocytes % 1.1 %; Immature Granulocytes Absolute 0.18 #; Lymphocytes # 0.3 10*3/uL (1.4-4.0); Lymphocytes % 2.1 % (21.2-54.2); Mean Corpuscular Hemoglobin 32 PG (27-34); Mean Corpuscular Volume 98.5 FL (87-102); Mean Platelet Volume 9.7 FL (9.6-12.0); Monocytes # 0.3 10*3/uL (0.11-0.8); Monocytes % 1.6 % (1.7-12.7); Neutrophils # 15.1 10*3/uL (1.4-7.4); Platelet Count 404 T/CUMM (130-400); Red Blood Count 4.12 MC/CUMM (3.8-5.5); Red Cell Distribution Width 14.6 % (9.3-17.3); White Blood Count 15.9 T/CUMM (4-12)
[2017-07-30 13:45] LABS: Giant Platelets Few; Hypochromasia 1+; Lymphocytes 3 % (20-55); Platelet Estimate Adequate; Segmented Neutrophils 96 % (50-85); Total Cells Counted 100
[2017-07-30 14:12] LABS: Albumin 3.7 G/DL (3.4-5.0); Bilirubin,Total 0.7 MG/DL (0.2-1.0); Magnesium 2.2 MG/DL (1.8-2.4); Osmolality,Calculated 283.4 MOS/KG (273-304); Potassium 3.9 MMOL/L (3.5-5.1); Thyroid Stimulating Hormone 0.376 uIU/ml (0.358-3.74); Total Protein 7.1 G/DL (6.4-8.3)
[2017-07-30] MEDS: ALBUTEROL/IPRATROPIUM 3 ML NEB RESP TX SCH ×2 (14:45→21:36)
[2017-07-30] MEDS: MEROPENEM 1,000 MG in SYRINGE 1 EACH IV SCH ×2 (15:44→21:33)
[2017-07-30] MEDS: methylPREDNISolone SOD SUC 125 MG/2 ML VIAL IV SCH ×2 (15:44→21:33)
[2017-07-30] MEDS: NICOTINE 21 MG/24 HR PATCH TRANSDERM SCH (15:45)
[2017-07-30] MEDS: ACETAMINOPHEN 325 MG TABLET PO PRN ×2 (15:55→21:32)
[2017-07-30] MEDS: LACTULOSE 20 GM/30 ML UDCUP PO PRN (18:30)
[2017-07-30] MEDS: THEOPHYLLINE ER 300 MG TABLET PO SCH (18:30)
[2017-07-30] MEDS ORDERED: NON-FORMULARY MEDICATION (Glycopyrrolate/Formoterol Fum [Bevespi Aerosphere Inhaler] 2 PUF INH SCH (21:00)
[2017-07-30 21:03] LABS: Apearance,Urine CLEAR (Clear); Bilirubin,Urine Negative (Negative); Blood, Urine Negative (Negative); Glucose,Urine (UA) Negative (Negative); Ketones,Urine Negative (Negative); Mucus,Urine Occasional /LPF (Occasional); Nitrite,Urine Negative (Negative); Protein,Urine Negative; RBC,Urine 3 /HPF (0-4); Urine Color Yellow (Yellow); Urine Specific Gravity 1.011 (1.001-1.035); Urine Urobilinogen < 2.0 EU/DL (0.2-1.0); WBC,Urine 2 /HPF (0-6)
[2017-07-30] MEDS: MONTELUKAST 10 MG TABLET PO SCH (21:32)
[2017-07-30] MEDS: traZODone 50 MG TABLET PO SCH (21:32)
[2017-07-30] MEDS: FLUTICASONE 50 MCG NASAL SPRAY 16 GM BOTTLE BOTH NARES SCH (21:58)
[2017-07-31] MEDS: ACETAMINOPHEN 325 MG TABLET PO PRN ×4 (04:12→20:55)
[2017-07-31] MEDS: THEOPHYLLINE ER 300 MG TABLET PO SCH ×2 (04:13→17:30)
[2017-07-31] MEDS: methylPREDNISolone SOD SUC 125 MG/2 ML VIAL IV SCH ×3 (04:13→20:56)
[2017-07-31] MEDS: MEROPENEM 1,000 MG in SYRINGE 1 EACH IV SCH ×3 (05:42→21:26)
[2017-07-31 05:53] LABS: Basophils % 0.2 % (0.0-0.8); Hematocrit 36.4 VOL% (42.0-52.0); Hemoglobin 12.1 GM/DL (14.0-18.0); Immature Granulocytes % 1.3 %; Immature Granulocytes Absolute 0.15 #; Lymphocytes # 0.4 10*3/uL (1.4-4.0); Lymphocytes % 3.2 % (21.2-54.2); Mean Corpuscular HGB Conc 33.2 GM/DL (32-36); Mean Corpuscular Hemoglobin 32 PG (27-34); Mean Corpuscular Volume 96.6 FL (87-102); Mean Platelet Volume 10.1 FL (9.6-12.0); Monocytes # 0.2 10*3/uL (0.11-0.8); Monocytes % 1.6 % (1.7-12.7); Neutrophils # 10.7 10*3/uL (1.4-7.4); Neutrophils % 93.7 % (38.7-73.9); Platelet Count 385 T/CUMM (130-400); Red Blood Count 3.77 MC/CUMM (3.8-5.5); Red Cell Distribution Width 14.6 % (9.3-17.3); White Blood Count 11.4 T/CUMM (4-12)
[2017-07-31 06:15] LABS: Calcium 8.7 MG/DL (8.5-10.1); Osmolality,Calculated 289.3 MOS/KG (273-304); Potassium 3.8 MMOL/L (3.5-5.1)
[2017-07-31 06:39] LABS: Giant Platelets Few; Hypochromasia 1+; Lymphocytes 2 % (20-55); Microcytosis Slight; Ovalocytes Slight; Platelet Estimate Adequate; Segmented Neutrophils 97 % (50-85); Total Cells Counted 100
[2017-07-31] MEDS: ALBUTEROL/IPRATROPIUM 3 ML NEB RESP TX SCH ×4 (07:40→19:09)
[2017-07-31] MEDS ORDERED: PANTOPRAZOLE 40 MG TABLET PO SCH (09:00)
[2017-07-31] MEDS: NICOTINE 21 MG/24 HR PATCH TRANSDERM SCH (09:07)
[2017-07-31] MEDS: FLUTICASONE 50 MCG NASAL SPRAY 16 GM BOTTLE BOTH NARES SCH ×2 (09:08→20:59)
[2017-07-31] MEDS: acetaZOLAMIDE 250 MG TABLET PO SCH (09:08)
[2017-07-31] MEDS: METOPROLOL SUCCINATE XL 25 MG TABLET PO SCH (09:08)
[2017-07-31] MEDS: TAMSULOSIN 0.4 MG CAPSULE PO SCH (09:08)
[2017-07-31] MEDS: MONTELUKAST 10 MG TABLET PO SCH ×2 (09:08→20:56)
[2017-07-31] MEDS: SUCRALFATE 1 GM TABLET PO SCH ×2 (15:59→20:56)
[2017-07-31] MEDS: EPINEPHrine 1 MG/ML VIAL SUBCUT PRN (17:30)
[2017-07-31] MEDS: PANTOPRAZOLE 40 MG TABLET PO SCH (20:56)
[2017-07-31] MEDS: traZODone 50 MG TABLET PO SCH (20:56)
[2017-08-01] MEDS: THEOPHYLLINE ER 300 MG TABLET PO SCH ×2 (06:04→16:00)
[2017-08-01] MEDS: methylPREDNISolone SOD SUC 125 MG/2 ML VIAL IV SCH ×3 (06:04→20:41)
[2017-08-01 06:06] LABS: Basophils % 0.1 % (0.0-0.8); Hematocrit 40.6 VOL% (42.0-52.0); Hemoglobin 13.1 GM/DL (14.0-18.0); Immature Granulocytes % 1.3 %; Immature Granulocytes Absolute 0.21 #; Lymphocytes # 0.4 10*3/uL (1.4-4.0); Lymphocytes % 2.6 % (21.2-54.2); Mean Corpuscular HGB Conc 32.3 GM/DL (32-36); Mean Corpuscular Hemoglobin 31 PG (27-34); Mean Corpuscular Volume 97.1 FL (87-102); Mean Platelet Volume 10.2 FL (9.6-12.0); Monocytes # 0.4 10*3/uL (0.11-0.8); Monocytes % 2.3 % (1.7-12.7); Neutrophils # 15.4 10*3/uL (1.4-7.4); Neutrophils % 93.7 % (38.7-73.9); Platelet Count 400 T/CUMM (130-400); Red Blood Count 4.18 MC/CUMM (3.8-5.5); Red Cell Distribution Width 14.7 % (9.3-17.3); White Blood Count 16.4 T/CUMM (4-12)
[2017-08-01] MEDS: MEROPENEM 1,000 MG in SYRINGE 1 EACH IV SCH ×3 (06:07→22:20)
[2017-08-01] MEDS: ACETAMINOPHEN 325 MG TABLET PO PRN ×2 (06:21→13:39)
[2017-08-01 06:33] LABS: Lymphocytes 5 % (20-55); Macrocytosis 2+; Platelet Estimate Normal; Segmented Neutrophils 95 % (50-85); Total Cells Counted 100
[2017-08-01 06:36] LABS: Calcium 9.1 MG/DL (8.5-10.1); Osmolality,Calculated 288.3 MOS/KG (273-304); Potassium 4.1 MMOL/L (3.5-5.1)
[2017-08-01] MEDS: ALBUTEROL/IPRATROPIUM 3 ML NEB RESP TX SCH ×4 (06:56→20:35)
[2017-08-01] MEDS: SUCRALFATE 1 GM TABLET PO SCH ×4 (09:29→20:41)
[2017-08-01] MEDS: MONTELUKAST 10 MG TABLET PO SCH ×2 (09:29→20:40)
[2017-08-01] MEDS: acetaZOLAMIDE 250 MG TABLET PO SCH (09:29)
[2017-08-01] MEDS: TAMSULOSIN 0.4 MG CAPSULE PO SCH (09:30)
[2017-08-01] MEDS: METOPROLOL SUCCINATE XL 25 MG TABLET PO SCH (09:30)
[2017-08-01] MEDS: PANTOPRAZOLE 40 MG TABLET PO SCH ×2 (09:30→20:41)
[2017-08-01] MEDS: NICOTINE 21 MG/24 HR PATCH TRANSDERM SCH (09:31)
[2017-08-01] MEDS: FLUTICASONE 50 MCG NASAL SPRAY 16 GM BOTTLE BOTH NARES SCH ×2 (09:31→20:43)
[2017-08-01] MEDS: EPINEPHrine 1 MG/ML VIAL SUBCUT PRN (14:15)
[2017-08-01] MEDS: traZODone 50 MG TABLET PO SCH (20:41)
[2017-08-02] MEDS: MEROPENEM 1,000 MG in SYRINGE 1 EACH IV SCH ×3 (06:08→22:15)
[2017-08-02] MEDS: methylPREDNISolone SOD SUC 125 MG/2 ML VIAL IV SCH ×3 (06:08→22:14)
[2017-08-02] MEDS: THEOPHYLLINE ER 300 MG TABLET PO SCH ×2 (06:08→16:33)
[2017-08-02 06:41] LABS: Basophils % 0.1 % (0.0-0.8); Hematocrit 36.9 VOL% (42.0-52.0); Hemoglobin 12.4 GM/DL (14.0-18.0); Immature Granulocytes % 1.6 %; Immature Granulocytes Absolute 0.22 #; Lymphocytes # 0.3 10*3/uL (1.4-4.0); Lymphocytes % 2.4 % (21.2-54.2); Mean Corpuscular HGB Conc 33.6 GM/DL (32-36); Mean Corpuscular Hemoglobin 32 PG (27-34); Mean Corpuscular Volume 95.8 FL (87-102); Mean Platelet Volume 10.4 FL (9.6-12.0); Monocytes # 0.4 10*3/uL (0.11-0.8); Monocytes % 3.1 % (1.7-12.7); Neutrophils # 12.8 10*3/uL (1.4-7.4); Neutrophils % 92.8 % (38.7-73.9); Platelet Count 355 T/CUMM (130-400); Red Blood Count 3.85 MC/CUMM (3.8-5.5); Red Cell Distribution Width 14.6 % (9.3-17.3); White Blood Count 13.8 T/CUMM (4-12)
[2017-08-02] MEDS: ALBUTEROL/IPRATROPIUM 3 ML NEB RESP TX SCH ×4 (06:52→20:41)
[2017-08-02 06:54] LABS: Calcium 9.1 MG/DL (8.5-10.1); Osmolality,Calculated 287.3 MOS/KG (273-304); Potassium 3.6 MMOL/L (3.5-5.1)
[2017-08-02 07:10] LABS: Hypochromasia 1+; Lymphocytes 2 % (20-55); Segmented Neutrophils 95 % (50-85); Total Cells Counted 100
[2017-08-02] MEDS: MONTELUKAST 10 MG TABLET PO SCH ×2 (08:44→22:14)
[2017-08-02] MEDS: METOPROLOL SUCCINATE XL 25 MG TABLET PO SCH (08:44)
[2017-08-02] MEDS: acetaZOLAMIDE 250 MG TABLET PO SCH (08:44)
[2017-08-02] MEDS: TAMSULOSIN 0.4 MG CAPSULE PO SCH (08:45)
[2017-08-02] MEDS: PANTOPRAZOLE 40 MG TABLET PO SCH ×2 (08:45→22:14)
[2017-08-02] MEDS: SUCRALFATE 1 GM TABLET PO SCH ×3 (08:45→16:34)
[2017-08-02] MEDS: LACTULOSE 20 GM/30 ML UDCUP PO PRN (08:45)
[2017-08-02] MEDS: NICOTINE 21 MG/24 HR PATCH TRANSDERM SCH (08:45)
[2017-08-02] MEDS: FLUTICASONE 50 MCG NASAL SPRAY 16 GM BOTTLE BOTH NARES SCH ×2 (08:46→22:16)
[2017-08-02] MEDS: ACETAMINOPHEN 325 MG TABLET PO PRN (11:34)
[2017-08-02] MEDS: ONDANSETRON 4 MG/2 ML VIAL IV PRN (15:17)
[2017-08-02] MEDS: traMADol 50 MG TABLET PO PRN (16:34)
[2017-08-02] MEDS: traZODone 50 MG TABLET PO SCH (22:14)
[2017-08-03] MEDS: methylPREDNISolone SOD SUC 125 MG/2 ML VIAL IV SCH ×3 (05:44→21:58)
[2017-08-03] MEDS: MEROPENEM 1,000 MG in SYRINGE 1 EACH IV SCH ×4 (05:45→22:01)
[2017-08-03] MEDS: ALBUTEROL/IPRATROPIUM 3 ML NEB RESP TX SCH ×4 (06:55→18:41)
[2017-08-03] MEDS: FLUTICASONE 50 MCG NASAL SPRAY 16 GM BOTTLE BOTH NARES SCH ×2 (14:13→21:56)
[2017-08-03] MEDS: MONTELUKAST 10 MG TABLET PO SCH ×2 (14:15→21:56)
[2017-08-03] MEDS: METOPROLOL SUCCINATE XL 25 MG TABLET PO SCH (14:15)
[2017-08-03] MEDS: acetaZOLAMIDE 250 MG TABLET PO SCH (14:15)
[2017-08-03] MEDS: THEOPHYLLINE ER 300 MG TABLET PO SCH ×2 (14:16→16:27)
[2017-08-03] MEDS: PANTOPRAZOLE 40 MG TABLET PO SCH ×2 (14:16→21:56)
[2017-08-03] MEDS: NICOTINE 21 MG/24 HR PATCH TRANSDERM SCH (14:16)
[2017-08-03] MEDS: TAMSULOSIN 0.4 MG CAPSULE PO SCH (14:16)
[2017-08-03] MEDS: METHYLNALTREXONE 12 MG/0.6 ML VIAL SUBCUT SCH (14:17)
[2017-08-03] MEDS: METOCLOPRAMIDE 10 MG/10 ML UDCUP PO SCH (21:55)
[2017-08-03] MEDS: traZODone 50 MG TABLET PO SCH (21:56)
[2017-08-03] MEDS: traMADol 50 MG TABLET PO PRN (21:56)
[2017-08-04] MEDS: methylPREDNISolone SOD SUC 125 MG/2 ML VIAL IV SCH ×3 (05:28→20:24)
[2017-08-04] MEDS: MEROPENEM 1,000 MG in SYRINGE 1 EACH IV SCH ×3 (05:32→21:49)
[2017-08-04] MEDS: traMADol 50 MG TABLET PO PRN ×3 (05:36→20:20)
[2017-08-04] MEDS: THEOPHYLLINE ER 300 MG TABLET PO SCH ×2 (05:36→16:35)
[2017-08-04] MEDS: ALBUTEROL/IPRATROPIUM 3 ML NEB RESP TX SCH ×4 (07:40→18:49)
[2017-08-04] MEDS: NICOTINE 21 MG/24 HR PATCH TRANSDERM SCH (09:49)
[2017-08-04] MEDS: METHYLNALTREXONE 12 MG/0.6 ML VIAL SUBCUT SCH (09:49)
[2017-08-04] MEDS: FLUTICASONE 50 MCG NASAL SPRAY 16 GM BOTTLE BOTH NARES SCH ×2 (09:49→20:21)
[2017-08-04] MEDS: METOCLOPRAMIDE 10 MG/10 ML UDCUP PO SCH ×5 (09:50→20:20)
[2017-08-04] MEDS: PANTOPRAZOLE 40 MG TABLET PO SCH ×2 (09:50→20:20)
[2017-08-04] MEDS: MONTELUKAST 10 MG TABLET PO SCH ×2 (09:51→20:20)
[2017-08-04] MEDS: acetaZOLAMIDE 250 MG TABLET PO SCH (09:51)
[2017-08-04] MEDS: TAMSULOSIN 0.4 MG CAPSULE PO SCH (09:51)
[2017-08-04] MEDS: METOPROLOL SUCCINATE XL 25 MG TABLET PO SCH (09:51)
[2017-08-04] MEDS: ONDANSETRON 4 MG/2 ML VIAL IV PRN (12:16)
[2017-08-04] MEDS: traZODone 50 MG TABLET PO SCH (20:20)
[2017-08-05] MEDS: methylPREDNISolone SOD SUC 125 MG/2 ML VIAL IV SCH ×3 (05:40→20:50)
[2017-08-05] MEDS: MEROPENEM 1,000 MG in SYRINGE 1 EACH IV SCH ×3 (05:43→22:17)
[2017-08-05] MEDS: THEOPHYLLINE ER 300 MG TABLET PO SCH ×2 (05:50→17:16)
[2017-08-05] MEDS: traMADol 50 MG TABLET PO PRN ×3 (05:52→20:48)
[2017-08-05] MEDS: ALBUTEROL/IPRATROPIUM 3 ML NEB RESP TX SCH ×4 (09:05→20:16)
[2017-08-05] MEDS: PANTOPRAZOLE 40 MG TABLET PO SCH ×2 (09:47→20:48)
[2017-08-05] MEDS: MONTELUKAST 10 MG TABLET PO SCH ×2 (09:48→20:48)
[2017-08-05] MEDS: FLUTICASONE 50 MCG NASAL SPRAY 16 GM BOTTLE BOTH NARES SCH ×2 (09:48→22:17)
[2017-08-05] MEDS: TAMSULOSIN 0.4 MG CAPSULE PO SCH (09:48)
[2017-08-05] MEDS: METOCLOPRAMIDE 10 MG/10 ML UDCUP PO SCH ×4 (09:48→20:48)
[2017-08-05] MEDS: acetaZOLAMIDE 250 MG TABLET PO SCH (09:48)
[2017-08-05] MEDS: NICOTINE 21 MG/24 HR PATCH TRANSDERM SCH (09:48)
[2017-08-05] MEDS: METOPROLOL SUCCINATE XL 25 MG TABLET PO SCH (09:48)
[2017-08-05] MEDS: METHYLNALTREXONE 12 MG/0.6 ML VIAL SUBCUT SCH (10:21)
[2017-08-05] MEDS: traZODone 50 MG TABLET PO SCH (20:48)
[2017-08-06] MEDS: methylPREDNISolone SOD SUC 125 MG/2 ML VIAL IV SCH ×3 (05:07→20:56)
[2017-08-06] MEDS: MEROPENEM 1,000 MG in SYRINGE 1 EACH IV SCH ×3 (05:10→23:18)
[2017-08-06] MEDS: THEOPHYLLINE ER 300 MG TABLET PO SCH ×2 (05:17→16:50)
[2017-08-06] MEDS: traMADol 50 MG TABLET PO PRN ×2 (05:19→14:50)
[2017-08-06] MEDS: ALBUTEROL/IPRATROPIUM 3 ML NEB RESP TX SCH ×4 (07:27→19:42)
[2017-08-06] MEDS: MONTELUKAST 10 MG TABLET PO SCH ×2 (08:23→20:56)
[2017-08-06] MEDS: acetaZOLAMIDE 250 MG TABLET PO SCH (08:23)
[2017-08-06] MEDS: PANTOPRAZOLE 40 MG TABLET PO SCH ×2 (08:23→20:55)
[2017-08-06] MEDS: METOCLOPRAMIDE 10 MG/10 ML UDCUP PO SCH ×4 (08:24→20:55)
[2017-08-06] MEDS: METOPROLOL SUCCINATE XL 25 MG TABLET PO SCH (08:24)
[2017-08-06] MEDS: FLUTICASONE 50 MCG NASAL SPRAY 16 GM BOTTLE BOTH NARES SCH ×2 (08:24→21:23)
[2017-08-06] MEDS: NICOTINE 21 MG/24 HR PATCH TRANSDERM SCH (08:24)
[2017-08-06] MEDS: TAMSULOSIN 0.4 MG CAPSULE PO SCH (08:24)
[2017-08-06] MEDS: METHYLNALTREXONE 12 MG/0.6 ML VIAL SUBCUT SCH (10:10)
[2017-08-06] MEDS: traZODone 50 MG TABLET PO SCH (20:55)
[2017-08-07] MEDS: THEOPHYLLINE ER 300 MG TABLET PO SCH ×2 (05:19→17:39)
[2017-08-07] MEDS: methylPREDNISolone SOD SUC 125 MG/2 ML VIAL IV SCH ×3 (05:19→20:35)
[2017-08-07] MEDS: ACETAMINOPHEN 325 MG TABLET PO PRN ×2 (05:25→14:17)
[2017-08-07] MEDS: MEROPENEM 1,000 MG in SYRINGE 1 EACH IV SCH ×3 (05:56→22:39)
[2017-08-07] MEDS: ALBUTEROL/IPRATROPIUM 3 ML NEB RESP TX SCH ×4 (07:24→19:12)
[2017-08-07] MEDS: acetaZOLAMIDE 250 MG TABLET PO SCH (08:35)
[2017-08-07] MEDS: TAMSULOSIN 0.4 MG CAPSULE PO SCH (08:36)
[2017-08-07] MEDS: PANTOPRAZOLE 40 MG TABLET PO SCH ×2 (08:36→20:34)
[2017-08-07] MEDS: MONTELUKAST 10 MG TABLET PO SCH ×2 (08:36→20:34)
[2017-08-07] MEDS: METOPROLOL SUCCINATE XL 25 MG TABLET PO SCH (08:36)
[2017-08-07] MEDS: METOCLOPRAMIDE 10 MG/10 ML UDCUP PO SCH ×4 (08:36→20:34)
[2017-08-07] MEDS: FLUTICASONE 50 MCG NASAL SPRAY 16 GM BOTTLE BOTH NARES SCH ×2 (08:37→20:35)
[2017-08-07] MEDS: NICOTINE 21 MG/24 HR PATCH TRANSDERM SCH (08:37)
[2017-08-07] MEDS: traMADol 50 MG TABLET PO PRN ×2 (08:38→17:39)
[2017-08-07] MEDS: METHYLNALTREXONE 12 MG/0.6 ML VIAL SUBCUT SCH (10:32)
[2017-08-07] MEDS: traZODone 50 MG TABLET PO SCH (20:34)
[2017-08-08] MEDS: ACETAMINOPHEN 325 MG TABLET PO PRN (01:21)
[2017-08-08] MEDS: THEOPHYLLINE ER 300 MG TABLET PO SCH (05:42)
[2017-08-08] MEDS: methylPREDNISolone SOD SUC 125 MG/2 ML VIAL IV SCH (05:42)
[2017-08-08] MEDS: MEROPENEM 1,000 MG in SYRINGE 1 EACH IV SCH (05:46)
[2017-08-08] MEDS: ALBUTEROL/IPRATROPIUM 3 ML NEB RESP TX SCH ×2 (08:02→11:44)
[2017-08-08 09:13] VITALS: BP 160/85
[2017-08-08] MEDS: traMADol 50 MG TABLET PO PRN (09:23)
[2017-08-08] MEDS: MONTELUKAST 10 MG TABLET PO SCH (09:23)
[2017-08-08] MEDS: TAMSULOSIN 0.4 MG CAPSULE PO SCH (09:23)
[2017-08-08] MEDS: METOPROLOL SUCCINATE XL 25 MG TABLET PO SCH (09:23)
[2017-08-08] MEDS: acetaZOLAMIDE 250 MG TABLET PO SCH (09:23)
[2017-08-08] MEDS: METOCLOPRAMIDE 10 MG/10 ML UDCUP PO SCH (09:24)
[2017-08-08] MEDS: NICOTINE 21 MG/24 HR PATCH TRANSDERM SCH (09:24)
[2017-08-08] MEDS: PANTOPRAZOLE 40 MG TABLET PO SCH (09:24)
[2017-08-08] MEDS: METHYLNALTREXONE 12 MG/0.6 ML VIAL SUBCUT SCH (09:26)
[2017-08-08] MEDS: FLUTICASONE 50 MCG NASAL SPRAY 16 GM BOTTLE BOTH NARES SCH (09:26)
== END 2017-08-08 13:10 | disposition home or self-care (01) | DRG 140 ==
LOC: N.5E 12:32
PROVIDERS: ADMIT Internal Medicine Pulmonary Disease; ATTEND Internal Medicine Pulmonary Disease

== ENCOUNTER 2017-08-09 05:36 | Inpatient (IN) ==
[2017-08-09] MEDS ORDERED: SODIUM CHLORIDE 0.9% 1,000 ML IV STA ×2 (07:48→10:38)
[2017-08-09 09:26] LABS: Apearance,Urine Slightly Hazy (Clear); Bilirubin,Urine Negative (Negative); Blood, Urine Large mg/dL (Negative); Glucose,Urine (UA) 50 mg/dL (Negative); Ketones,Urine Negative (Negative); Mucus,Urine Occasional /LPF (Occasional); Nitrite,Urine Negative (Negative); Protein,Urine 30 MG/DL; RBC,Urine 225 /HPF (0-4); Urine Color Yellow (Yellow); Urine Specific Gravity 1.012 (1.001-1.035); Urine Urobilinogen < 2.0 EU/DL (0.2-1.0); WBC,Urine 13 /HPF (0-6)
[2017-08-09] MEDS ORDERED: ONDANSETRON 4 MG/2 ML VIAL IV STA (10:38)
[2017-08-09] MEDS ORDERED: HYDROmorphone 2 MG/1 ML VIAL IV STA (10:38)
[2017-08-09] MEDS ORDERED: HYDROmorphone 2 MG/1 ML VIAL ONE ×2 (10:38→14:53)
[2017-08-09] MEDS ORDERED: ONDANSETRON 4 MG/2 ML VIAL ONE ×3 (10:38→14:55)
[2017-08-09 11:33] LABS: Basophils # 0.1 10*3/uL (0.0-0.2); Basophils % 0.4 % (0.0-0.8); Hematocrit 43.3 VOL% (42.0-52.0); Hemoglobin 14.5 GM/DL (14.0-18.0); Immature Granulocytes % 2.8 %; Immature Granulocytes Absolute 1.08 #; Lymphocytes # 0.7 10*3/uL (1.4-4.0); Lymphocytes % 1.9 % (21.2-54.2); Mean Corpuscular HGB Conc 33.5 GM/DL (32-36); Mean Corpuscular Hemoglobin 32 PG (27-34); Mean Corpuscular Volume 94.5 FL (87-102); Mean Platelet Volume 10.1 FL (9.6-12.0); Monocytes # 1.9 10*3/uL (0.11-0.8); Monocytes % 4.9 % (1.7-12.7); Neutrophils # 35.2 10*3/uL (1.4-7.4); Platelet Count 302 T/CUMM (130-400); Red Blood Count 4.58 MC/CUMM (3.8-5.5); White Blood Count 39.1 T/CUMM (4-12)
[2017-08-09 11:39] LABS: INR 0.9; PT Patient Result 9.3 SECS; Partial Thromboplastin Time 25.2 SECS (0-40)
[2017-08-09] MEDS ORDERED: cefTRIAXone 1,000 MG in SYRINGE 1 EACH IV ONE (11:49)
[2017-08-09 11:51] LABS: Hypochromasia 1+; Lymphocytes 4 % (20-55); Platelet Estimate Normal; Segmented Neutrophils 91 % (50-85); Total Cells Counted 100
[2017-08-09 12:05] LABS: Calcium 8.2 MG/DL (8.5-10.1); Osmolality,Calculated 286.2 MOS/KG (273-304); Potassium 3.7 MMOL/L (3.5-5.1)
[2017-08-09] MEDS: LACTATED RINGERS 1,000 ML IV SCH (13:57)
[2017-08-09] MEDS ORDERED: cefTRIAXone 1,000 MG VIAL ONE (13:59)
[2017-08-09] MEDS ORDERED: SUGAMMADEX 200 MG/2 ML VIAL IV ONE (14:22)
[2017-08-09] MEDS ORDERED: HYDROmorphone 2 MG/1 ML VIAL IV PRN (14:49)
[2017-08-09] MEDS ORDERED: ONDANSETRON 4 MG/2 ML VIAL IV PRN ×2 (14:49→16:02)
[2017-08-09] MEDS ORDERED: fentaNYL 100 MCG/2 ML VIAL ONE (14:55)
[2017-08-09] MEDS ORDERED: ROCURONIUM 100 MG/10 ML VIAL IV ONE (14:55)
[2017-08-09] MEDS ORDERED: PROPOFOL 200 MG/20 ML VIAL IV ONE (14:55)
[2017-08-09] MEDS ORDERED: predniSONE 20 MG TABLET PO SCH (16:02)
[2017-08-09] MEDS ORDERED: ACETAMINOPHEN 325 MG TABLET PO PRN (16:02)
[2017-08-09] MEDS ORDERED: ALBUTEROL 2.5 MG/3 ML NEB RESP TX PRN (16:02)
[2017-08-09] MEDS: SODIUM CHLORIDE 0.9% 1,000 ML IV SCH (16:10)
[2017-08-09] MEDS ORDERED: ALBUTEROL/IPRATROPIUM 3 ML NEB RESP TX ONE (16:23)
[2017-08-09] MEDS ORDERED: LEVOFLOXACIN INJ 750 MG in PREMIX 1 EACH IV SCH (17:00)
[2017-08-09] MEDS: predniSONE 20 MG TABLET PO SCH (17:11)
[2017-08-09] MEDS: METOCLOPRAMIDE 10 MG/10 ML UDCUP PO SCH ×2 (17:11→21:11)
[2017-08-09] MEDS: THEOPHYLLINE ER 300 MG TABLET PO SCH (17:11)
[2017-08-09] MEDS: ALBUTEROL/IPRATROPIUM 3 ML NEB RESP TX SCH (19:29)
[2017-08-09] MEDS ORDERED: ENOXAPARIN 30 MG/0.3 ML SYRINGE SUBCUT SCH (21:00)
[2017-08-09] MEDS: MONTELUKAST 10 MG TABLET PO SCH (21:11)
[2017-08-09] MEDS: FLUTICASONE 50 MCG NASAL SPRAY 16 GM BOTTLE BOTH NARES SCH (21:11)
[2017-08-09] MEDS: PANTOPRAZOLE 40 MG TABLET PO SCH (21:11)
[2017-08-10] MEDS: SODIUM CHLORIDE 0.9% 1,000 ML IV SCH ×3 (00:06→10:42)
[2017-08-10] MEDS: ALBUTEROL/IPRATROPIUM 3 ML NEB RESP TX SCH ×7 (00:11→23:39)
[2017-08-10] MEDS: THEOPHYLLINE ER 300 MG TABLET PO SCH ×2 (06:23→15:28)
[2017-08-10 07:13] LABS: Basophils % 0.1 % (0.0-0.8); Hematocrit 37.2 VOL% (42.0-52.0); Hemoglobin 12.7 GM/DL (14.0-18.0); Immature Granulocytes % 1.7 %; Immature Granulocytes Absolute 0.27 #; Lymphocytes # 0.5 10*3/uL (1.4-4.0); Lymphocytes % 3.5 % (21.2-54.2); Mean Corpuscular HGB Conc 34.1 GM/DL (32-36); Mean Corpuscular Hemoglobin 32 PG (27-34); Mean Corpuscular Volume 93.2 FL (87-102); Mean Platelet Volume 9.7 FL (9.6-12.0); Monocytes # 0.7 10*3/uL (0.11-0.8); Monocytes % 4.8 % (1.7-12.7); Neutrophils # 13.9 10*3/uL (1.4-7.4); Neutrophils % 89.9 % (38.7-73.9); Red Blood Count 3.99 MC/CUMM (3.8-5.5); Red Cell Distribution Width 14.1 % (9.3-17.3)
[2017-08-10 07:37] LABS: Platelet Count 241 T/CUMM (130-400); White Blood Count 15.5 T/CUMM (4-12)
[2017-08-10 07:39] LABS: Calcium 8.3 MG/DL (8.5-10.1); Osmolality,Calculated 294.8 MOS/KG (273-304); Potassium 3.2 MMOL/L (3.5-5.1); Risk Ratio 1.57
[2017-08-10 07:59] LABS: Hypochromasia Slight; Lymphocytes 7 % (20-55); Platelet Estimate Adequate; Segmented Neutrophils 88 % (50-85); Total Cells Counted 100
[2017-08-10] MEDS: FORMOTEROL FUM INH SCH ×3 (08:14→21:15)
[2017-08-10] MEDS: GLYCOPYRROLATE INH SCH ×3 (08:14→21:15)
[2017-08-10] MEDS ORDERED: acetaZOLAMIDE 250 MG TABLET PO SCH (09:00)
[2017-08-10] MEDS: predniSONE 20 MG TABLET PO SCH (09:07)
[2017-08-10] MEDS: METOCLOPRAMIDE 10 MG/10 ML UDCUP PO SCH ×5 (09:07→21:10)
[2017-08-10] MEDS: PANTOPRAZOLE 40 MG TABLET PO SCH ×2 (09:07→21:11)
[2017-08-10] MEDS: METOPROLOL SUCCINATE XL 25 MG TABLET PO SCH (09:07)
[2017-08-10] MEDS: MONTELUKAST 10 MG TABLET PO SCH ×2 (09:07→21:11)
[2017-08-10] MEDS: TAMSULOSIN 0.4 MG CAPSULE PO SCH (09:08)
[2017-08-10] MEDS: FLUTICASONE 50 MCG NASAL SPRAY 16 GM BOTTLE BOTH NARES SCH ×2 (09:09→21:09)
[2017-08-10] MEDS: NICOTINE 21 MG/24 HR PATCH TRANSDERM SCH (09:15)
[2017-08-10] MEDS: LACTATED RINGERS 1,000 ML IV SCH ×2 (13:31→21:38)
[2017-08-10] MEDS: traMADol 50 MG TABLET PO PRN ×2 (15:28→23:23)
[2017-08-10] MEDS ORDERED: POTASSIUM CHLORIDE 20 MEQ TABLET PO ONE (16:09)
[2017-08-10] MEDS: LEVOFLOXACIN INJ 750 MG in PREMIX 1 EACH IV SCH (17:15)
[2017-08-10] MEDS: ENOXAPARIN 40 MG/0.4 ML SYRINGE SUBCUT SCH (21:12)
[2017-08-11] MEDS: ALBUTEROL/IPRATROPIUM 3 ML NEB RESP TX SCH ×5 (02:56→20:57)
[2017-08-11] MEDS: THEOPHYLLINE ER 300 MG TABLET PO SCH ×2 (03:34→17:23)
[2017-08-11 04:30] LABS: Basophils % 0.3 % (0.0-0.8); Eosinophils % 0.1 % (0.00-10.9); Hematocrit 36.1 VOL% (42.0-52.0); Hemoglobin 12.1 GM/DL (14.0-18.0); Immature Granulocytes Absolute 0.31 #; Lymphocytes % 6.2 % (21.2-54.2); Mean Corpuscular HGB Conc 33.5 GM/DL (32-36); Mean Corpuscular Hemoglobin 32 PG (27-34); Mean Corpuscular Volume 94.5 FL (87-102); Mean Platelet Volume 9.6 FL (9.6-12.0); Monocytes # 0.8 10*3/uL (0.11-0.8); Monocytes % 5.1 % (1.7-12.7); Neutrophils # 13.4 10*3/uL (1.4-7.4); Neutrophils % 86.3 % (38.7-73.9); Platelet Count 214 T/CUMM (130-400); Red Blood Count 3.82 MC/CUMM (3.8-5.5); Red Cell Distribution Width 14.2 % (9.3-17.3); White Blood Count 15.6 T/CUMM (4-12)
[2017-08-11 04:45] LABS: Calcium 8.2 MG/DL (8.5-10.1); Osmolality,Calculated 283.3 MOS/KG (273-304); Potassium 3.5 MMOL/L (3.5-5.1)
[2017-08-11] MEDS: predniSONE 20 MG TABLET PO SCH (09:22)
[2017-08-11] MEDS: MONTELUKAST 10 MG TABLET PO SCH ×2 (09:22→21:48)
[2017-08-11] MEDS: traMADol 50 MG TABLET PO PRN (09:22)
[2017-08-11] MEDS: METOPROLOL SUCCINATE XL 25 MG TABLET PO SCH (09:22)
[2017-08-11] MEDS: PANTOPRAZOLE 40 MG TABLET PO SCH ×2 (09:22→21:48)
[2017-08-11] MEDS: METOCLOPRAMIDE 10 MG/10 ML UDCUP PO SCH ×4 (09:23→21:47)
[2017-08-11] MEDS: FLUTICASONE 50 MCG NASAL SPRAY 16 GM BOTTLE BOTH NARES SCH ×2 (09:23→21:48)
[2017-08-11] MEDS: TAMSULOSIN 0.4 MG CAPSULE PO SCH (09:23)
[2017-08-11] MEDS: NICOTINE 21 MG/24 HR PATCH TRANSDERM SCH (09:23)
[2017-08-11] MEDS: FORMOTEROL FUM INH SCH ×2 (09:24→21:50)
[2017-08-11] MEDS: GLYCOPYRROLATE INH SCH ×2 (09:24→21:50)
[2017-08-11] MEDS: LEVOFLOXACIN INJ 750 MG in PREMIX 1 EACH IV SCH (17:23)
[2017-08-11] MEDS: ENOXAPARIN 40 MG/0.4 ML SYRINGE SUBCUT SCH (21:47)
[2017-08-11] MEDS: LACTATED RINGERS 1,000 ML IV SCH (23:23)
[2017-08-12] MEDS: ALBUTEROL/IPRATROPIUM 3 ML NEB RESP TX SCH ×6 (00:35→20:28)
[2017-08-12 06:25] LABS: Basophils % 0.2 % (0.0-0.8); Eosinophils % 0.3 % (0.00-10.9); Hematocrit 35.9 VOL% (42.0-52.0); Hemoglobin 12.1 GM/DL (14.0-18.0); Immature Granulocytes % 1.3 %; Immature Granulocytes Absolute 0.15 #; Lymphocytes # 1.4 10*3/uL (1.4-4.0); Lymphocytes % 12.1 % (21.2-54.2); Mean Corpuscular HGB Conc 33.7 GM/DL (32-36); Mean Corpuscular Hemoglobin 32 PG (27-34); Mean Corpuscular Volume 94.5 FL (87-102); Mean Platelet Volume 9.6 FL (9.6-12.0); Monocytes # 0.8 10*3/uL (0.11-0.8); Monocytes % 6.3 % (1.7-12.7); Neutrophils # 9.5 10*3/uL (1.4-7.4); Neutrophils % 79.8 % (38.7-73.9); Platelet Count 217 T/CUMM (130-400); White Blood Count 11.9 T/CUMM (4-12)
[2017-08-12 07:08] LABS: Calcium 8.4 MG/DL (8.5-10.1); Osmolality,Calculated 274.7 MOS/KG (273-304); Potassium 3.2 MMOL/L (3.5-5.1)
[2017-08-12 07:10] LABS: Calcium 8.1 MG/DL (8.5-10.1); Magnesium 1.4 MG/DL (1.8-2.4); Osmolality,Calculated 274.7 MOS/KG (273-304); Potassium 3.1 MMOL/L (3.5-5.1)
[2017-08-12] MEDS: METOCLOPRAMIDE 10 MG/10 ML UDCUP PO SCH ×4 (08:27→20:17)
[2017-08-12] MEDS: FLUTICASONE 50 MCG NASAL SPRAY 16 GM BOTTLE BOTH NARES SCH ×2 (08:27→20:16)
[2017-08-12] MEDS: METOPROLOL SUCCINATE XL 25 MG TABLET PO SCH (08:27)
[2017-08-12] MEDS: MONTELUKAST 10 MG TABLET PO SCH ×2 (08:27→20:17)
[2017-08-12] MEDS: POTASSIUM CHLORIDE 20 MEQ TABLET PO PRN ×4 (08:27→15:44)
[2017-08-12] MEDS: PANTOPRAZOLE 40 MG TABLET PO SCH ×2 (08:28→20:17)
[2017-08-12] MEDS: NICOTINE 21 MG/24 HR PATCH TRANSDERM SCH (08:28)
[2017-08-12] MEDS: GLYCOPYRROLATE INH SCH ×2 (08:28→20:21)
[2017-08-12] MEDS: THEOPHYLLINE ER 300 MG TABLET PO SCH ×2 (08:28→20:17)
[2017-08-12] MEDS: TAMSULOSIN 0.4 MG CAPSULE PO SCH (08:28)
[2017-08-12] MEDS: predniSONE 20 MG TABLET PO SCH (08:28)
[2017-08-12] MEDS: FORMOTEROL FUM INH SCH ×2 (08:28→20:21)
[2017-08-12] MEDS: traMADol 50 MG TABLET PO PRN (11:32)
[2017-08-12] MEDS ORDERED: MAGNESIUM SULFATE 1 GM/2 ML VIAL IM ONE (15:16)
[2017-08-12] MEDS ORDERED: MAGNESIUM SULF RIDER 50 ML IV ONE (15:30)
[2017-08-12] MEDS ORDERED: POTASSIUM CHLORIDE INJ 40 MEQ in SODIUM CHLORIDE 0.9% 500 ML IV ONE (16:30)
[2017-08-12] MEDS: LEVOFLOXACIN INJ 750 MG in PREMIX 1 EACH IV SCH (17:40)
[2017-08-12] MEDS: ENOXAPARIN 40 MG/0.4 ML SYRINGE SUBCUT SCH (20:16)
[2017-08-12] MEDS: LACTATED RINGERS 1,000 ML IV SCH (23:11)
[2017-08-13] MEDS: ALBUTEROL/IPRATROPIUM 3 ML NEB RESP TX SCH ×5 (00:05→14:15)
[2017-08-13 06:43] LABS: Basophils % 0.2 % (0.0-0.8); Eosinophils # 0.1 10*3/uL (0.0-0.87); Eosinophils % 0.7 % (0.00-10.9); Hematocrit 35.5 VOL% (42.0-52.0); Hemoglobin 11.6 GM/DL (14.0-18.0); Immature Granulocytes % 1.1 %; Immature Granulocytes Absolute 0.13 #; Lymphocytes # 1.5 10*3/uL (1.4-4.0); Lymphocytes % 12.7 % (21.2-54.2); Mean Corpuscular HGB Conc 32.7 GM/DL (32-36); Mean Corpuscular Hemoglobin 31 PG (27-34); Mean Corpuscular Volume 96.2 FL (87-102); Mean Platelet Volume 9.3 FL (9.6-12.0); Monocytes # 0.7 10*3/uL (0.11-0.8); Neutrophils # 9.6 10*3/uL (1.4-7.4); Neutrophils % 79.3 % (38.7-73.9); Platelet Count 197 T/CUMM (130-400); Red Blood Count 3.69 MC/CUMM (3.8-5.5); White Blood Count 12.1 T/CUMM (4-12)
[2017-08-13 07:11] LABS: Calcium 7.9 MG/DL (8.5-10.1); Magnesium 1.7 MG/DL (1.8-2.4); Osmolality,Calculated 278.5 MOS/KG (273-304); Potassium 3.6 MMOL/L (3.5-5.1)
[2017-08-13] MEDS: MONTELUKAST 10 MG TABLET PO SCH (08:36)
[2017-08-13] MEDS: THEOPHYLLINE ER 300 MG TABLET PO SCH (08:36)
[2017-08-13] MEDS: METOCLOPRAMIDE 10 MG/10 ML UDCUP PO SCH ×2 (08:36→11:04)
[2017-08-13] MEDS: METOPROLOL SUCCINATE XL 25 MG TABLET PO SCH (08:36)
[2017-08-13] MEDS: PANTOPRAZOLE 40 MG TABLET PO SCH (08:37)
[2017-08-13] MEDS: NICOTINE 21 MG/24 HR PATCH TRANSDERM SCH (08:37)
[2017-08-13] MEDS: predniSONE 20 MG TABLET PO SCH (08:37)
[2017-08-13] MEDS: TAMSULOSIN 0.4 MG CAPSULE PO SCH (08:37)
[2017-08-13] MEDS: FORMOTEROL FUM INH SCH (08:38)
[2017-08-13] MEDS: GLYCOPYRROLATE INH SCH (08:38)
[2017-08-13] MEDS: traMADol 50 MG TABLET PO PRN (08:40)
[2017-08-13] MEDS: FLUTICASONE 50 MCG NASAL SPRAY 16 GM BOTTLE BOTH NARES SCH (08:42)
[2017-08-13 11:49] VITALS: BP 115/65
[2017-08-13] MEDS ORDERED: MAGNESIUM OXIDE 400 MG TABLET PO SCH (13:30)
[2017-08-13] MEDS ORDERED: MAGNESIUM SULF RIDER 4 GM in PREMIX 1 EACH IV ONE (14:00)
== END 2017-08-13 15:06 | DRG 720 ==
LOC: N.ED 05:36 → N.5E 13:40 → N.EDINP 14:32 → SUATTDRO 14:32 → N.5E 15:55
PROVIDERS: ADMIT Internal Medicine; ATTEND Internal Medicine

== ENCOUNTER 2017-09-28 14:44 | Inpatient (IN) ==
[2017-09-28] MEDS ORDERED: ALBUTEROL/IPRATROPIUM 3 ML NEB RESP TX PRN (14:47)
[2017-09-28] MEDS ORDERED: ACETAMINOPHEN 325 MG TABLET PO PRN (14:47)
[2017-09-28] MEDS: ALBUTEROL/IPRATROPIUM 3 ML NEB RESP TX SCH ×2 (16:40→18:11)
[2017-09-28] MEDS: MEROPENEM 1,000 MG in SYRINGE 1 EACH IV SCH (18:11)
[2017-09-28] MEDS: KETOROLAC 15 MG/1 ML VIAL IV PRN (18:14)
[2017-09-28 18:33] LABS: Alanine Aminotransferase 15 U/L (16-61); Albumin 3.2 G/DL (3.4-5.0); Alkaline Phosphatase 80 U/L (45-117); Aspartate Amino Transferase 8 U/L (0-37); Bilirubin,Total < 0.39 MG/DL (0.2-1.0); Blood Urea Nitrogen 15 MG/DL (7-18); Calcium 9.1 MG/DL (8.5-10.1); Glucose 147 MG/DL (74-106); Osmolality,Calculated 286.1 MOS/KG (273-304); Potassium 4.4 MMOL/L (3.5-5.1); Sodium 142 MMOL/L (136-145); Thyroid Stimulating Hormone 0.285 uIU/ml (0.358-3.74); Total Protein 6.1 G/DL (6.4-8.3)
[2017-09-28 19:33] LABS: Apearance,Urine CLOUDY (Clear); Bilirubin,Urine Negative (Negative); Blood, Urine Moderate mg/dL (Negative); Glucose,Urine (UA) 50 mg/dL (Negative); Ketones,Urine 5 mg/dL (Negative); Nitrite,Urine Positive (Negative); Protein,Urine 100 MG/DL; RBC,Urine 5791 /HPF (0-4); Urine Color Red (Yellow); WBC,Urine 13 /HPF (0-6)
[2017-09-28] MEDS: PANTOPRAZOLE 40 MG TABLET PO SCH (20:57)
[2017-09-28] MEDS: GENTAMICIN INJ 320 MG in SODIUM CHLORIDE 0.9% 100 ML IV SCH (20:57)
[2017-09-28] MEDS: traMADol 50 MG TABLET PO PRN (21:03)
[2017-09-29] MEDS: MEROPENEM 1,000 MG in SYRINGE 1 EACH IV SCH ×3 (00:01→15:54)
[2017-09-29] MEDS: TEMAZEPAM 15 MG CAPSULE PO PRN ×2 (00:05→20:22)
[2017-09-29] MEDS: traMADol 50 MG TABLET PO PRN ×3 (04:41→20:22)
[2017-09-29 06:21] LABS: Basophils # 0.1 10*3/uL (0.0-0.2); Basophils % 0.5 % (0.0-0.8); Eosinophils # 0.2 10*3/uL (0.0-0.87); Eosinophils % 1.4 % (0.00-10.9); Hematocrit 39.5 VOL% (42.0-52.0); Hemoglobin 12.4 GM/DL (14.0-18.0); Immature Granulocytes % 1.7 %; Immature Granulocytes Absolute 0.25 #; Lymphocytes # 2.6 10*3/uL (1.4-4.0); Lymphocytes % 17.8 % (21.2-54.2); Mean Corpuscular HGB Conc 31.4 GM/DL (32-36); Mean Corpuscular Hemoglobin 31 PG (27-34); Mean Platelet Volume 9.7 FL (9.6-12.0); Monocytes # 0.8 10*3/uL (0.11-0.8); Monocytes % 5.4 % (1.7-12.7); Neutrophils # 10.5 10*3/uL (1.4-7.4); Neutrophils % 73.2 % (38.7-73.9); Platelet Count 430 T/CUMM (130-400); Red Blood Count 4.03 MC/CUMM (3.8-5.5); White Blood Count 14.4 T/CUMM (4-12)
[2017-09-29 06:57] LABS: Calcium 8.8 MG/DL (8.5-10.1); Osmolality,Calculated 288.7 MOS/KG (273-304); Potassium 4.1 MMOL/L (3.5-5.1)
[2017-09-29] MEDS: ALBUTEROL/IPRATROPIUM 3 ML NEB RESP TX SCH ×4 (07:05→19:22)
[2017-09-29] MEDS: PANTOPRAZOLE 40 MG TABLET PO SCH ×3 (07:24→20:22)
[2017-09-29] MEDS: KETOROLAC 15 MG/1 ML VIAL IV PRN ×2 (07:28→20:23)
[2017-09-29] MEDS: GENTAMICIN INJ 320 MG in SODIUM CHLORIDE 0.9% 100 ML IV SCH (20:22)
[2017-09-30] MEDS: MEROPENEM 1,000 MG in SYRINGE 1 EACH IV SCH ×3 (01:40→15:20)
[2017-09-30 06:48] LABS: Basophils # 0.1 10*3/uL (0.0-0.2); Basophils % 0.5 % (0.0-0.8); Eosinophils # 0.3 10*3/uL (0.0-0.87); Eosinophils % 2.3 % (0.00-10.9); Hematocrit 36.9 VOL% (42.0-52.0); Hemoglobin 11.5 GM/DL (14.0-18.0); Immature Granulocytes % 1.5 %; Immature Granulocytes Absolute 0.16 #; Lymphocytes # 2.3 10*3/uL (1.4-4.0); Lymphocytes % 21.2 % (21.2-54.2); Mean Corpuscular HGB Conc 31.2 GM/DL (32-36); Mean Corpuscular Hemoglobin 31 PG (27-34); Mean Corpuscular Volume 98.9 FL (87-102); Mean Platelet Volume 9.6 FL (9.6-12.0); Monocytes # 0.7 10*3/uL (0.11-0.8); Monocytes % 6.6 % (1.7-12.7); Neutrophils # 7.5 10*3/uL (1.4-7.4); Neutrophils % 67.9 % (38.7-73.9); Platelet Count 383 T/CUMM (130-400); Red Blood Count 3.73 MC/CUMM (3.8-5.5); Red Cell Distribution Width 15.2 % (9.3-17.3)
[2017-09-30 07:17] LABS: Calcium 8.5 MG/DL (8.5-10.1); Osmolality,Calculated 286.8 MOS/KG (273-304); Potassium 4.3 MMOL/L (3.5-5.1)
[2017-09-30] MEDS: ALBUTEROL/IPRATROPIUM 3 ML NEB RESP TX SCH ×4 (07:29→19:58)
[2017-09-30] MEDS: PANTOPRAZOLE 40 MG TABLET PO SCH ×2 (08:57→20:30)
[2017-09-30] MEDS: KETOROLAC 15 MG/1 ML VIAL IV PRN ×2 (09:00→20:30)
[2017-09-30] MEDS: traMADol 50 MG TABLET PO PRN (18:06)
[2017-09-30] MEDS: GENTAMICIN INJ 320 MG in SODIUM CHLORIDE 0.9% 100 ML IV SCH (20:30)
[2017-09-30] MEDS: TEMAZEPAM 15 MG CAPSULE PO PRN (20:33)
[2017-10-01] MEDS: MEROPENEM 1,000 MG in SYRINGE 1 EACH IV SCH ×4 (00:45→23:07)
[2017-10-01 06:33] LABS: Basophils # 0.1 10*3/uL (0.0-0.2); Basophils % 0.4 % (0.0-0.8); Eosinophils # 0.3 10*3/uL (0.0-0.87); Hematocrit 36.9 VOL% (42.0-52.0); Hemoglobin 11.2 GM/DL (14.0-18.0); Immature Granulocytes % 1.2 %; Immature Granulocytes Absolute 0.13 #; Lymphocytes # 2.2 10*3/uL (1.4-4.0); Lymphocytes % 19.7 % (21.2-54.2); Mean Corpuscular HGB Conc 30.4 GM/DL (32-36); Mean Corpuscular Hemoglobin 30 PG (27-34); Mean Corpuscular Volume 100.3 FL (87-102); Mean Platelet Volume 9.7 FL (9.6-12.0); Monocytes # 0.6 10*3/uL (0.11-0.8); Monocytes % 5.7 % (1.7-12.7); Neutrophils # 7.8 10*3/uL (1.4-7.4); Platelet Count 376 T/CUMM (130-400); Red Blood Count 3.68 MC/CUMM (3.8-5.5); Red Cell Distribution Width 14.9 % (9.3-17.3); White Blood Count 11.1 T/CUMM (4-12)
[2017-10-01 07:09] LABS: Calcium 8.1 MG/DL (8.5-10.1); Osmolality,Calculated 283.8 MOS/KG (273-304); Potassium 4.6 MMOL/L (3.5-5.1)
[2017-10-01] MEDS: ALBUTEROL/IPRATROPIUM 3 ML NEB RESP TX SCH ×4 (07:41→19:42)
[2017-10-01] MEDS: traMADol 50 MG TABLET PO PRN ×2 (09:42→19:59)
[2017-10-01] MEDS: PANTOPRAZOLE 40 MG TABLET PO SCH ×2 (09:44→19:59)
[2017-10-01] MEDS: NICOTINE 21 MG/24 HR PATCH TRANSDERM PRN (09:46)
[2017-10-01 10:53] LABS: RBC,Urine 21321 /HPF (0-4); WBC,Urine 204 /HPF (0-6)
[2017-10-01 10:55] LABS: Apearance,Urine Turbid (Clear); Bilirubin,Urine Negative (Negative); Glucose,Urine (UA) Negative (Negative); Ketones,Urine Negative (Negative); Nitrite,Urine Negative (Negative); Protein,Urine 100 MG/DL; Urine Color Red (Yellow); Urine Specific Gravity 1.015 (1.001-1.035)
[2017-10-01 10:56] LABS: Blood, Urine Large mg/dL (Negative); Urine Urobilinogen 0.2 EU/DL (0.2-1.0)
[2017-10-01] MEDS: TEMAZEPAM 15 MG CAPSULE PO PRN (19:59)
[2017-10-01] MEDS: GENTAMICIN INJ 320 MG in SODIUM CHLORIDE 0.9% 100 ML IV SCH (19:59)
[2017-10-02] MEDS ORDERED: cefTRIAXone 1,000 MG in SYRINGE 1 EACH IV ONE (06:00)
[2017-10-02 06:44] LABS: Basophils # 0.1 10*3/uL (0.0-0.2); Basophils % 0.7 % (0.0-0.8); Eosinophils # 0.3 10*3/uL (0.0-0.87); Eosinophils % 2.2 % (0.00-10.9); Hematocrit 41.4 VOL% (42.0-52.0); Hemoglobin 12.6 GM/DL (14.0-18.0); Immature Granulocytes Absolute 0.14 #; Lymphocytes # 2.1 10*3/uL (1.4-4.0); Lymphocytes % 15.4 % (21.2-54.2); Mean Corpuscular HGB Conc 30.4 GM/DL (32-36); Mean Corpuscular Hemoglobin 30 PG (27-34); Mean Platelet Volume 9.6 FL (9.6-12.0); Monocytes # 0.9 10*3/uL (0.11-0.8); Monocytes % 6.2 % (1.7-12.7); Neutrophils # 10.3 10*3/uL (1.4-7.4); Neutrophils % 74.5 % (38.7-73.9); Platelet Count 401 T/CUMM (130-400); Red Blood Count 4.14 MC/CUMM (3.8-5.5); Red Cell Distribution Width 14.7 % (9.3-17.3); White Blood Count 13.8 T/CUMM (4-12)
[2017-10-02 07:09] LABS: Calcium 8.9 MG/DL (8.5-10.1); Potassium 4.7 MMOL/L (3.5-5.1)
[2017-10-02] MEDS: ALBUTEROL/IPRATROPIUM 3 ML NEB RESP TX SCH ×4 (07:27→19:17)
[2017-10-02] MEDS: MEROPENEM 1,000 MG in SYRINGE 1 EACH IV SCH ×3 (09:38→23:44)
[2017-10-02] MEDS: PANTOPRAZOLE 40 MG TABLET PO SCH ×2 (10:00→20:42)
[2017-10-02] MEDS: THEOPHYLLINE ER 300 MG TABLET PO SCH ×2 (13:18→23:44)
[2017-10-02] MEDS ORDERED: GENTAMICIN 80 MG/2 ML VIAL ONE (13:57)
[2017-10-02] MEDS ORDERED: GENTAMICIN INJ 80 MG in PREMIX 1 EACH IV ONE (14:05)
[2017-10-02] MEDS ORDERED: SUGAMMADEX 200 MG/2 ML VIAL IV ONE (15:15)
[2017-10-02] MEDS ORDERED: fentaNYL 100 MCG/2 ML VIAL ONE (15:28)
[2017-10-02] MEDS ORDERED: MIDAZOLAM 2 MG/2 ML VIAL ONE (15:28)
[2017-10-02] MEDS ORDERED: SEVOFLURANE 1 UNIT/15 MINUTE INH ONE (15:28)
[2017-10-02] MEDS ORDERED: PROPOFOL 200 MG/20 ML VIAL IV ONE (15:28)
[2017-10-02] MEDS ORDERED: HYDROmorphone 2 MG/1 ML VIAL ONE (15:29)
[2017-10-02] MEDS ORDERED: PHENYLEPHRINE 1 MG/10 ML SYRINGE IV ONE (15:29)
[2017-10-02] MEDS ORDERED: ROCURONIUM 100 MG/10 ML VIAL IV ONE (15:29)
[2017-10-02] MEDS ORDERED: NEOSTIGMINE 10 MG/10 ML VIAL ONE (15:29)
[2017-10-02] MEDS ORDERED: ONDANSETRON 4 MG/2 ML VIAL ONE ×2 (15:29)
[2017-10-02] MEDS ORDERED: GLYCOPYRROLATE 0.4 MG/2 ML VIAL ONE (15:29)
[2017-10-02] MEDS: HYDROmorphone 2 MG/1 ML VIAL IV PRN ×4 (15:31→15:55)
[2017-10-02] MEDS ORDERED: ONDANSETRON 4 MG/2 ML VIAL IV PRN (15:33)
[2017-10-02 16:48] LABS: Apearance,Urine CLOUDY (Clear); Bilirubin,Urine Negative (Negative); Blood, Urine Large mg/dL (Negative); Glucose,Urine (UA) Negative (Negative); Ketones,Urine Negative (Negative); Nitrite,Urine Negative (Negative); Protein,Urine 30 MG/DL; RBC,Urine 3113 /HPF (0-4); Urine Color Red (Yellow); Urine Specific Gravity 1.003 (1.001-1.035); Urine Urobilinogen < 2.0 EU/DL (0.2-1.0); WBC,Urine 12 /HPF (0-6)
[2017-10-02] MEDS: METOCLOPRAMIDE 10 MG/10 ML UDCUP PO SCH ×2 (16:56→20:39)
[2017-10-02] MEDS: GENTAMICIN INJ 320 MG in SODIUM CHLORIDE 0.9% 100 ML IV SCH (20:39)
[2017-10-02] MEDS: MONTELUKAST 10 MG TABLET PO SCH (20:40)
[2017-10-02] MEDS: MAGNESIUM OXIDE 400 MG TABLET PO SCH (20:41)
[2017-10-02] MEDS: TEMAZEPAM 15 MG CAPSULE PO PRN (20:42)
[2017-10-02] MEDS: FLUTICASONE 50 MCG NASAL SPRAY 16 GM BOTTLE BOTH NARES SCH (20:43)
[2017-10-03] MEDS: ALBUTEROL/IPRATROPIUM 3 ML NEB RESP TX SCH ×4 (07:23→19:39)
[2017-10-03] MEDS: MEROPENEM 1,000 MG in SYRINGE 1 EACH IV SCH ×2 (09:12→15:59)
[2017-10-03] MEDS: MONTELUKAST 10 MG TABLET PO SCH ×2 (09:13→21:26)
[2017-10-03] MEDS: acetaZOLAMIDE 250 MG TABLET PO SCH (09:13)
[2017-10-03] MEDS: METOPROLOL SUCCINATE XL 25 MG TABLET PO SCH (09:13)
[2017-10-03] MEDS: predniSONE 20 MG TABLET PO SCH (09:13)
[2017-10-03] MEDS: PANTOPRAZOLE 40 MG TABLET PO SCH ×2 (09:13→21:26)
[2017-10-03] MEDS: MAGNESIUM OXIDE 400 MG TABLET PO SCH ×2 (09:13→21:26)
[2017-10-03] MEDS: METOCLOPRAMIDE 10 MG/10 ML UDCUP PO SCH ×4 (09:14→21:26)
[2017-10-03] MEDS: NICOTINE 21 MG/24 HR PATCH TRANSDERM PRN (09:35)
[2017-10-03] MEDS: FLUTICASONE 50 MCG NASAL SPRAY 16 GM BOTTLE BOTH NARES SCH ×2 (11:17→21:28)
[2017-10-03] MEDS: traMADol 50 MG TABLET PO PRN (11:25)
[2017-10-03] MEDS: THEOPHYLLINE ER 300 MG TABLET PO SCH ×2 (12:03→23:36)
[2017-10-03 12:55] LABS: Apearance,Urine Slightly Hazy (Clear); Bilirubin,Urine Negative (Negative); Blood, Urine Large mg/dL (Negative); Glucose,Urine (UA) Negative (Negative); Ketones,Urine Negative (Negative); Mucus,Urine Occasional /LPF (Occasional); Nitrite,Urine Negative (Negative); Protein,Urine 100 MG/DL; RBC,Urine 1184 /HPF (0-4); Urine Color Yellow (Yellow); Urine Specific Gravity 1.009 (1.001-1.035); Urine Urobilinogen < 2.0 EU/DL (0.2-1.0); WBC,Urine 42 /HPF (0-6)
[2017-10-03] MEDS: TEMAZEPAM 15 MG CAPSULE PO PRN ×2 (21:26→23:36)
[2017-10-04] MEDS: MEROPENEM 1,000 MG in SYRINGE 1 EACH IV SCH ×2 (00:13→09:27)
[2017-10-04 06:08] LABS: Basophils # 0.1 10*3/uL (0.0-0.2); Basophils % 0.4 % (0.0-0.8); Eosinophils # 0.2 10*3/uL (0.0-0.87); Eosinophils % 1.6 % (0.00-10.9); Hematocrit 37.6 VOL% (42.0-52.0); Hemoglobin 11.7 GM/DL (14.0-18.0); Immature Granulocytes % 0.7 %; Immature Granulocytes Absolute 0.09 #; Lymphocytes # 2.4 10*3/uL (1.4-4.0); Lymphocytes % 17.7 % (21.2-54.2); Mean Corpuscular HGB Conc 31.1 GM/DL (32-36); Mean Corpuscular Hemoglobin 30 PG (27-34); Mean Corpuscular Volume 97.7 FL (87-102); Mean Platelet Volume 9.8 FL (9.6-12.0); Monocytes # 0.8 10*3/uL (0.11-0.8); Neutrophils # 10.1 10*3/uL (1.4-7.4); Neutrophils % 73.6 % (38.7-73.9); Platelet Count 369 T/CUMM (130-400); Red Blood Count 3.85 MC/CUMM (3.8-5.5); Red Cell Distribution Width 14.5 % (9.3-17.3); White Blood Count 13.8 T/CUMM (4-12)
[2017-10-04 06:36] LABS: Osmolality,Calculated 277.5 MOS/KG (273-304); Potassium 3.7 MMOL/L (3.5-5.1)
[2017-10-04] MEDS: ALBUTEROL/IPRATROPIUM 3 ML NEB RESP TX SCH ×2 (07:25→11:17)
[2017-10-04] MEDS ORDERED: GENTAMICIN INJ 320 MG in SODIUM CHLORIDE 0.9% 100 ML IV SCH (09:00)
[2017-10-04] MEDS: METOCLOPRAMIDE 10 MG/10 ML UDCUP PO SCH ×2 (09:27→12:07)
[2017-10-04] MEDS: acetaZOLAMIDE 250 MG TABLET PO SCH (09:28)
[2017-10-04] MEDS: MONTELUKAST 10 MG TABLET PO SCH (09:29)
[2017-10-04] MEDS: FLUTICASONE 50 MCG NASAL SPRAY 16 GM BOTTLE BOTH NARES SCH (09:29)
[2017-10-04] MEDS: MAGNESIUM OXIDE 400 MG TABLET PO SCH (09:29)
[2017-10-04] MEDS: METOPROLOL SUCCINATE XL 25 MG TABLET PO SCH (09:29)
[2017-10-04] MEDS: predniSONE 20 MG TABLET PO SCH (09:30)
[2017-10-04] MEDS: PANTOPRAZOLE 40 MG TABLET PO SCH (09:30)
[2017-10-04] MEDS: THEOPHYLLINE ER 300 MG TABLET PO SCH (12:07)
[2017-10-04 12:34] VITALS: BP 94/63
[2017-10-09 15:43] LABS: Stone Source Passed Stone
== END 2017-10-04 14:30 | disposition home or self-care (01) | DRG 446 ==
LOC: N.5E 15:35
PROVIDERS: ADMIT Internal Medicine Pulmonary Disease; ATTEND Internal Medicine Pulmonary Disease

== ENCOUNTER 2018-06-04 12:02 | Inpatient (IN) ==
[2018-06-04] MEDS ORDERED: ALBUTEROL 2.5 MG/3 ML NEB RESP TX STA (12:56)
[2018-06-04] MEDS ORDERED: methylPREDNISolone SOD SUC 125 MG/2 ML VIAL IV STA (12:56)
[2018-06-04] MEDS ORDERED: cefTRIAXone 1,000 MG in SODIUM CHLORIDE 0.9% 100 ML IV STA (12:57)
[2018-06-04 13:21] LABS: Basophils # 0.1 10*3/uL (0.0-0.2); Basophils % 0.4 % (0.0-0.8); Eosinophils # 0.1 10*3/uL (0.0-0.87); Eosinophils % 0.5 % (0.00-10.9); Hematocrit 46.3 VOL% (42.0-52.0); Hemoglobin 14.7 GM/DL (14.0-18.0); Immature Granulocytes % 0.5 %; Immature Granulocytes Absolute 0.08 #; Lymphocytes # 2.1 10*3/uL (1.4-4.0); Lymphocytes % 13.5 % (21.2-54.2); Mean Corpuscular HGB Conc 31.7 GM/DL (32-36); Mean Corpuscular Hemoglobin 31 PG (27-34); Mean Corpuscular Volume 97.1 FL (87-102); Mean Platelet Volume 9.9 FL (9.6-12.0); Monocytes # 0.9 10*3/uL (0.11-0.8); Neutrophils # 12.2 10*3/uL (1.4-7.4); Neutrophils % 79.1 % (38.7-73.9); Platelet Count 392 T/CUMM (130-400); Red Blood Count 4.77 MC/CUMM (3.8-5.5); Red Cell Distribution Width 14.6 % (9.3-17.3); White Blood Count 15.4 T/CUMM (4-12)
[2018-06-04 13:40] LABS: Albumin 3.2 G/DL (3.4-5.0); Bilirubin,Total 0.6 MG/DL (0.2-1.0); Calcium 8.9 MG/DL (8.5-10.1); Osmolality,Calculated 271.7 MOS/KG (273-304); Potassium 2.7 MMOL/L (3.5-5.1); Total Protein 7.1 G/DL (6.4-8.3)
[2018-06-04] MEDS ORDERED: POTASSIUM CHLORIDE 20 MEQ TABLET PO STA (15:28)
[2018-06-04] MEDS ORDERED: ALBUTEROL 2.5 MG/3 ML NEB RESP TX PRN (16:49)
[2018-06-04] MEDS ORDERED: LACTULOSE 20 GM/30 ML UDCUP PO PRN (18:05)
[2018-06-04] MEDS ORDERED: ONDANSETRON 4 MG/2 ML VIAL IV PRN (18:05)
[2018-06-04] MEDS ORDERED: BISACODYL 5 MG TABLET PO PRN (18:05)
[2018-06-04] MEDS: PANTOPRAZOLE 40 MG TABLET PO SCH (18:16)
[2018-06-04] MEDS: methylPREDNISolone SOD SUC 40 MG/1 ML VIAL IV SCH ×2 (18:17→23:36)
[2018-06-04] MEDS: FUROSEMIDE 20 MG/2 ML VIAL IV SCH (18:17)
[2018-06-04] MEDS: NICOTINE 21 MG/24 HR PATCH TRANSDERM SCH (18:17)
[2018-06-04] MEDS ORDERED: AZITHROMYCIN INJ 500 MG in SODIUM CHLORIDE 0.9% 250 ML IV SCH (20:00)
[2018-06-04 20:07] LABS: Thyroid Stimulating Hormone 0.785 uIU/ml (0.358-3.74)
[2018-06-04] MEDS: ALBUTEROL/IPRATROPIUM 3 ML NEB RESP TX SCH (20:08)
[2018-06-04] MEDS: THEOPHYLLINE ER 300 MG TABLET PO SCH (20:53)
[2018-06-04] MEDS: METOCLOPRAMIDE 10 MG/10 ML UDCUP PO SCH (20:53)
[2018-06-04] MEDS: POTASSIUM CHLORIDE 20 MEQ TABLET PO SCH (20:53)
[2018-06-04] MEDS: ENOXAPARIN 40 MG/0.4 ML SYRINGE SUBCUT SCH (20:53)
[2018-06-04 21:00] LABS: Apearance,Urine CLEAR (Clear); Bilirubin,Urine Negative (Negative); Blood, Urine Negative (Negative); Glucose,Urine (UA) Negative (Negative); Ketones,Urine 20 mg/dL (Negative); Mucus,Urine Occasional /LPF (Occasional); Nitrite,Urine Negative (Negative); Protein,Urine Negative; RBC,Urine 1 /HPF (0-4); Squamous Epithelial Cell,Urine Occasional /HPF (0-10); Urine Color Yellow (Yellow); Urine Specific Gravity 1.009 (1.001-1.035); Urine Urobilinogen < 2.0 EU/DL (0.2-1.0); WBC,Urine 3 /HPF (0-6)
[2018-06-04] MEDS ORDERED: NON-FORMULARY MEDICATION (Glycopyrrolate/Formoterol Fum [Bevespi Aerosphere Inhaler] 2 PUF INH SCH (21:00)
[2018-06-05] MEDS: ALBUTEROL/IPRATROPIUM 3 ML NEB RESP TX SCH ×4 (00:22→17:52)
[2018-06-05] MEDS: oxyCODONE/ACETAMINOPHEN 5-325 MG TABLET PO PRN ×2 (04:23→15:45)
[2018-06-05 05:50] LABS: Hematocrit 45.1 VOL% (42.0-52.0); Hemoglobin 13.8 GM/DL (14.0-18.0); Immature Granulocytes % 0.7 %; Immature Granulocytes Absolute 0.04 #; Lymphocytes # 0.4 10*3/uL (1.4-4.0); Lymphocytes % 7.5 % (21.2-54.2); Mean Corpuscular HGB Conc 30.6 GM/DL (32-36); Mean Corpuscular Hemoglobin 30 PG (27-34); Mean Corpuscular Volume 99.1 FL (87-102); Mean Platelet Volume 9.8 FL (9.6-12.0); Monocytes # 0.1 10*3/uL (0.11-0.8); Monocytes % 1.7 % (1.7-12.7); Neutrophils # 4.9 10*3/uL (1.4-7.4); Neutrophils % 90.1 % (38.7-73.9); Platelet Count 377 T/CUMM (130-400); Red Blood Count 4.55 MC/CUMM (3.8-5.5); Red Cell Distribution Width 14.7 % (9.3-17.3); White Blood Count 5.5 T/CUMM (4-12)
[2018-06-05] MEDS: methylPREDNISolone SOD SUC 40 MG/1 ML VIAL IV SCH ×3 (06:03→22:25)
[2018-06-05 06:09] LABS: Bilirubin,Total 0.7 MG/DL (0.2-1.0); Calcium 9.1 MG/DL (8.5-10.1); Potassium 4.4 MMOL/L (3.5-5.1); Total Protein 6.3 G/DL (6.4-8.3)
[2018-06-05] MEDS: METOCLOPRAMIDE 10 MG/10 ML UDCUP PO SCH ×4 (08:36→22:24)
[2018-06-05] MEDS: PANTOPRAZOLE 40 MG TABLET PO SCH (08:36)
[2018-06-05] MEDS: THEOPHYLLINE ER 300 MG TABLET PO SCH ×2 (08:36→22:24)
[2018-06-05] MEDS: NICOTINE 21 MG/24 HR PATCH TRANSDERM SCH (08:37)
[2018-06-05] MEDS: FLUTICASONE 50 MCG NASAL SPRAY 16 GM BOTTLE BOTH NARES SCH (08:37)
[2018-06-05] MEDS: POTASSIUM CHLORIDE 20 MEQ TABLET PO SCH ×2 (08:37→22:24)
[2018-06-05] MEDS: MONTELUKAST 10 MG TABLET PO SCH (08:37)
[2018-06-05] MEDS: FUROSEMIDE 20 MG/2 ML VIAL IV SCH (08:39)
[2018-06-05] MEDS ORDERED: NON-FORMULARY MEDICATION (Umeclidinium Brm/Vilanterol Tr [Anoro Ellipta] 1 PUFF) INH SCH (09:00)
[2018-06-05] MEDS: AZITHROMYCIN 250 MG TABLET PO SCH (12:18)
[2018-06-05] MEDS: ACETAMINOPHEN 325 MG TABLET PO PRN (14:57)
[2018-06-05] MEDS: cefTRIAXone 1,000 MG in SYRINGE 1 EACH IV SCH (22:24)
[2018-06-05] MEDS: ENOXAPARIN 40 MG/0.4 ML SYRINGE SUBCUT SCH (22:24)
[2018-06-06] MEDS: oxyCODONE/ACETAMINOPHEN 5-325 MG TABLET PO PRN ×4 (00:25→21:42)
[2018-06-06] MEDS: ALBUTEROL/IPRATROPIUM 3 ML NEB RESP TX SCH ×4 (01:11→18:51)
[2018-06-06] MEDS: methylPREDNISolone SOD SUC 40 MG/1 ML VIAL IV SCH ×4 (04:36→21:43)
[2018-06-06 05:50] LABS: Basophils % 0.1 % (0.0-0.8); Hematocrit 42.6 VOL% (42.0-52.0); Hemoglobin 13.3 GM/DL (14.0-18.0); Immature Granulocytes % 0.8 %; Immature Granulocytes Absolute 0.19 #; Lymphocytes # 0.4 10*3/uL (1.4-4.0); Lymphocytes % 1.6 % (21.2-54.2); Mean Corpuscular HGB Conc 31.2 GM/DL (32-36); Mean Corpuscular Hemoglobin 31 PG (27-34); Mean Corpuscular Volume 98.6 FL (87-102); Monocytes # 0.5 10*3/uL (0.11-0.8); Neutrophils # 21.9 10*3/uL (1.4-7.4); Neutrophils % 95.5 % (38.7-73.9); Platelet Count 366 T/CUMM (130-400); Red Blood Count 4.32 MC/CUMM (3.8-5.5); Red Cell Distribution Width 14.6 % (9.3-17.3)
[2018-06-06 06:06] LABS: Calcium 9.1 MG/DL (8.5-10.1); Osmolality,Calculated 287.1 MOS/KG (273-304); Potassium 3.6 MMOL/L (3.5-5.1)
[2018-06-06 07:35] LABS: Hypochromasia 1+; Lymphocytes 1 % (20-55); Platelet Estimate Adequate; Segmented Neutrophils 98 % (50-85); Total Cells Counted 100
[2018-06-06] MEDS ORDERED: ASPIRIN CHEW 81 MG TABLET PO ONE (08:25)
[2018-06-06] MEDS ORDERED: NITROGLYCERIN SL 0.4 MG TABLET SL ONE (08:25)
[2018-06-06] MEDS ORDERED: KETOROLAC 30 MG/1 ML VIAL ONE (08:29)
[2018-06-06] MEDS ORDERED: KETOROLAC 30 MG/1 ML VIAL IV ONE (08:34)
[2018-06-06] MEDS: METOCLOPRAMIDE 10 MG/10 ML UDCUP PO SCH ×4 (08:37→21:43)
[2018-06-06] MEDS: PANTOPRAZOLE 40 MG TABLET PO SCH (08:38)
[2018-06-06] MEDS: MONTELUKAST 10 MG TABLET PO SCH (08:38)
[2018-06-06] MEDS: POTASSIUM CHLORIDE 20 MEQ TABLET PO SCH ×2 (08:38→21:43)
[2018-06-06] MEDS: AZITHROMYCIN 250 MG TABLET PO SCH (08:38)
[2018-06-06] MEDS: NICOTINE 21 MG/24 HR PATCH TRANSDERM SCH (08:38)
[2018-06-06] MEDS: THEOPHYLLINE ER 300 MG TABLET PO SCH ×2 (08:38→21:43)
[2018-06-06] MEDS: FLUTICASONE 50 MCG NASAL SPRAY 16 GM BOTTLE BOTH NARES SCH (08:51)
[2018-06-06] MEDS ORDERED: FUROSEMIDE 20 MG/2 ML VIAL IV SCH (09:00)
[2018-06-06] MEDS ORDERED: MAGNESIUM SULF RIDER 2 GM in PREMIX 1 EACH IV ONE (12:30)
[2018-06-06] MEDS: METOPROLOL SUCCINATE XL 25 MG TABLET PO SCH (14:39)
[2018-06-06] MEDS: ACETAMINOPHEN 325 MG TABLET PO PRN (14:39)
[2018-06-06] MEDS: ENOXAPARIN 40 MG/0.4 ML SYRINGE SUBCUT SCH (21:43)
[2018-06-06] MEDS: cefTRIAXone 1,000 MG in SYRINGE 1 EACH IV SCH (21:44)
[2018-06-07] MEDS: ALBUTEROL/IPRATROPIUM 3 ML NEB RESP TX SCH ×4 (00:12→19:03)
[2018-06-07] MEDS: methylPREDNISolone SOD SUC 40 MG/1 ML VIAL IV SCH ×3 (03:50→16:54)
[2018-06-07 05:33] LABS: Hematocrit 39.9 VOL% (42.0-52.0); Hemoglobin 12.3 GM/DL (14.0-18.0); Immature Granulocytes % 0.9 %; Lymphocytes # 0.3 10*3/uL (1.4-4.0); Lymphocytes % 1.3 % (21.2-54.2); Mean Corpuscular HGB Conc 30.8 GM/DL (32-36); Mean Corpuscular Hemoglobin 31 PG (27-34); Mean Platelet Volume 9.8 FL (9.6-12.0); Monocytes # 0.5 10*3/uL (0.11-0.8); Monocytes % 2.3 % (1.7-12.7); Neutrophils # 20.6 10*3/uL (1.4-7.4); Neutrophils % 95.5 % (38.7-73.9); Platelet Count 351 T/CUMM (130-400); Red Blood Count 3.99 MC/CUMM (3.8-5.5); Red Cell Distribution Width 14.8 % (9.3-17.3); White Blood Count 21.6 T/CUMM (4-12)
[2018-06-07] MEDS: oxyCODONE/ACETAMINOPHEN 5-325 MG TABLET PO PRN ×3 (05:44→22:20)
[2018-06-07 06:51] LABS: Lymphocytes 6 % (20-55); Platelet Estimate Normal; Polychromasia Few; Segmented Neutrophils 92 % (50-85); Total Cells Counted 100
[2018-06-07] MEDS: THEOPHYLLINE ER 300 MG TABLET PO SCH ×2 (08:32→21:01)
[2018-06-07] MEDS: METOCLOPRAMIDE 10 MG/10 ML UDCUP PO SCH ×4 (08:32→21:01)
[2018-06-07] MEDS: MONTELUKAST 10 MG TABLET PO SCH (08:33)
[2018-06-07] MEDS: METOPROLOL SUCCINATE XL 25 MG TABLET PO SCH (08:33)
[2018-06-07] MEDS: AZITHROMYCIN 250 MG TABLET PO SCH (08:33)
[2018-06-07] MEDS: NICOTINE 21 MG/24 HR PATCH TRANSDERM SCH (08:33)
[2018-06-07] MEDS: POTASSIUM CHLORIDE 20 MEQ TABLET PO SCH ×2 (08:33→21:01)
[2018-06-07] MEDS: PANTOPRAZOLE 40 MG TABLET PO SCH (08:33)
[2018-06-07] MEDS: FLUTICASONE 50 MCG NASAL SPRAY 16 GM BOTTLE BOTH NARES SCH (08:38)
[2018-06-07] MEDS ORDERED: MAGNESIUM SULF RIDER 2 GM in PREMIX 1 EACH IV ONE (12:25)
[2018-06-07] MEDS: KETOROLAC 15 MG/1 ML VIAL IV PRN ×2 (12:29→18:21)
[2018-06-07] MEDS: ROFLUMILAST 500 MCG TABLET PO SCH (14:04)
[2018-06-07] MEDS: ENOXAPARIN 40 MG/0.4 ML SYRINGE SUBCUT SCH (21:01)
[2018-06-07] MEDS: ZALEPLON 5 MG CAPSULE PO PRN (23:45)
[2018-06-08] MEDS: ALBUTEROL/IPRATROPIUM 3 ML NEB RESP TX SCH ×5 (00:31→23:29)
[2018-06-08] MEDS: methylPREDNISolone SOD SUC 40 MG/1 ML VIAL IV SCH ×3 (01:20→17:04)
[2018-06-08] MEDS: KETOROLAC 15 MG/1 ML VIAL IV PRN ×3 (03:52→17:04)
[2018-06-08] MEDS: METOCLOPRAMIDE 10 MG/10 ML UDCUP PO SCH ×4 (06:35→21:06)
[2018-06-08] MEDS: oxyCODONE/ACETAMINOPHEN 5-325 MG TABLET PO PRN ×3 (06:35→22:56)
[2018-06-08 07:11] LABS: Basophils % 0.1 % (0.0-0.8); Hematocrit 42.2 VOL% (42.0-52.0); Immature Granulocytes % 1.5 %; Immature Granulocytes Absolute 0.25 #; Lymphocytes # 0.3 10*3/uL (1.4-4.0); Mean Corpuscular HGB Conc 30.8 GM/DL (32-36); Mean Corpuscular Hemoglobin 31 PG (27-34); Mean Platelet Volume 9.8 FL (9.6-12.0); Monocytes # 0.5 10*3/uL (0.11-0.8); Monocytes % 2.9 % (1.7-12.7); Neutrophils # 15.7 10*3/uL (1.4-7.4); Neutrophils % 93.5 % (38.7-73.9); Platelet Count 329 T/CUMM (130-400); Red Blood Count 4.22 MC/CUMM (3.8-5.5); Red Cell Distribution Width 14.6 % (9.3-17.3); White Blood Count 16.8 T/CUMM (4-12)
[2018-06-08 07:26] LABS: Calcium 8.9 MG/DL (8.5-10.1); Osmolality,Calculated 280.5 MOS/KG (273-304); Potassium 4.7 MMOL/L (3.5-5.1)
[2018-06-08 08:01] LABS: Hypochromasia 1+; Lymphocytes 3 % (20-55); Segmented Neutrophils 96 % (50-85); Total Cells Counted 100
[2018-06-08] MEDS: MONTELUKAST 10 MG TABLET PO SCH (08:20)
[2018-06-08] MEDS: AZITHROMYCIN 250 MG TABLET PO SCH (08:20)
[2018-06-08] MEDS: THEOPHYLLINE ER 300 MG TABLET PO SCH ×2 (08:21→21:07)
[2018-06-08] MEDS: FLUTICASONE 50 MCG NASAL SPRAY 16 GM BOTTLE BOTH NARES SCH (08:21)
[2018-06-08] MEDS: ROFLUMILAST 500 MCG TABLET PO SCH (08:21)
[2018-06-08] MEDS: PANTOPRAZOLE 40 MG TABLET PO SCH (08:21)
[2018-06-08] MEDS: METOPROLOL SUCCINATE XL 25 MG TABLET PO SCH (08:21)
[2018-06-08] MEDS: POTASSIUM CHLORIDE 20 MEQ TABLET PO SCH ×2 (08:21→21:06)
[2018-06-08] MEDS: tiZANidine 4 MG TABLET PO PRN (08:27)
[2018-06-08] MEDS: NICOTINE 21 MG/24 HR PATCH TRANSDERM SCH (08:30)
[2018-06-08] MEDS: ENOXAPARIN 40 MG/0.4 ML SYRINGE SUBCUT SCH (21:06)
[2018-06-09] MEDS: methylPREDNISolone SOD SUC 40 MG/1 ML VIAL IV SCH ×4 (01:36→16:22)
[2018-06-09] MEDS: KETOROLAC 15 MG/1 ML VIAL IV PRN ×3 (06:00→20:47)
[2018-06-09 06:16] LABS: Basophils % 0.1 % (0.0-0.8); Hematocrit 41.5 VOL% (42.0-52.0); Immature Granulocytes % 1.5 %; Immature Granulocytes Absolute 0.21 #; Lymphocytes # 0.2 10*3/uL (1.4-4.0); Lymphocytes % 1.7 % (21.2-54.2); Mean Corpuscular HGB Conc 31.3 GM/DL (32-36); Mean Corpuscular Hemoglobin 31 PG (27-34); Mean Corpuscular Volume 99.8 FL (87-102); Monocytes # 0.3 10*3/uL (0.11-0.8); Monocytes % 2.3 % (1.7-12.7); Neutrophils # 13.6 10*3/uL (1.4-7.4); Neutrophils % 94.4 % (38.7-73.9); Platelet Count 332 T/CUMM (130-400); Red Blood Count 4.16 MC/CUMM (3.8-5.5); Red Cell Distribution Width 14.4 % (9.3-17.3); White Blood Count 14.4 T/CUMM (4-12)
[2018-06-09 06:32] LABS: Calcium 8.8 MG/DL (8.5-10.1); Osmolality,Calculated 283.4 MOS/KG (273-304); Potassium 4.4 MMOL/L (3.5-5.1)
[2018-06-09] MEDS: METOCLOPRAMIDE 10 MG/10 ML UDCUP PO SCH ×4 (06:41→20:47)
[2018-06-09] MEDS: ALBUTEROL/IPRATROPIUM 3 ML NEB RESP TX SCH ×3 (07:19→19:19)
[2018-06-09 07:27] LABS: Band Neutrophils 3 % (0-10); Lymphocytes 1 % (20-55); Platelet Estimate Normal; Segmented Neutrophils 94 % (50-85); Total Cells Counted 100
[2018-06-09] MEDS: METOPROLOL SUCCINATE XL 25 MG TABLET PO SCH (09:02)
[2018-06-09] MEDS: MONTELUKAST 10 MG TABLET PO SCH (09:02)
[2018-06-09] MEDS: THEOPHYLLINE ER 300 MG TABLET PO SCH ×2 (09:02→20:46)
[2018-06-09] MEDS: POTASSIUM CHLORIDE 20 MEQ TABLET PO SCH ×2 (09:02→20:46)
[2018-06-09] MEDS: ROFLUMILAST 500 MCG TABLET PO SCH (09:02)
[2018-06-09] MEDS: tiZANidine 4 MG TABLET PO PRN (09:03)
[2018-06-09] MEDS: PANTOPRAZOLE 40 MG TABLET PO SCH (09:03)
[2018-06-09] MEDS: oxyCODONE/ACETAMINOPHEN 5-325 MG TABLET PO PRN ×2 (09:03→16:22)
[2018-06-09] MEDS: FLUTICASONE 50 MCG NASAL SPRAY 16 GM BOTTLE BOTH NARES SCH (09:06)
[2018-06-09] MEDS: NICOTINE 21 MG/24 HR PATCH TRANSDERM SCH (09:06)
[2018-06-09] MEDS ORDERED: methylPREDNISolone SOD SUC 40 MG/1 ML VIAL IV ONE (09:11)
[2018-06-09 11:03] LABS: ABG HCO3 28.9 MMOL/L (20-26); ABG PCO2 44.3 MM HG (35-48); ABG PH 7.438 (7.35-7.45); ABG PO2 84.5 MM HG (80-95)
[2018-06-09] MEDS: ENOXAPARIN 40 MG/0.4 ML SYRINGE SUBCUT SCH (20:46)
[2018-06-10] MEDS: ALBUTEROL/IPRATROPIUM 3 ML NEB RESP TX SCH ×4 (00:21→20:06)
[2018-06-10] MEDS: methylPREDNISolone SOD SUC 40 MG/1 ML VIAL IV SCH ×3 (02:06→17:14)
[2018-06-10] MEDS: KETOROLAC 15 MG/1 ML VIAL IV PRN ×2 (04:26→10:04)
[2018-06-10 04:36] LABS: Basophils % 0.2 % (0.0-0.8); Hematocrit 42.1 VOL% (42.0-52.0); Hemoglobin 13.2 GM/DL (14.0-18.0); Immature Granulocytes % 1.4 %; Immature Granulocytes Absolute 0.19 #; Lymphocytes # 0.4 10*3/uL (1.4-4.0); Mean Corpuscular HGB Conc 31.4 GM/DL (32-36); Mean Corpuscular Hemoglobin 31 PG (27-34); Mean Corpuscular Volume 98.6 FL (87-102); Monocytes # 0.7 10*3/uL (0.11-0.8); Monocytes % 4.8 % (1.7-12.7); Neutrophils # 12.5 10*3/uL (1.4-7.4); Neutrophils % 90.6 % (38.7-73.9); Platelet Count 331 T/CUMM (130-400); Red Blood Count 4.27 MC/CUMM (3.8-5.5); Red Cell Distribution Width 14.6 % (9.3-17.3); White Blood Count 13.8 T/CUMM (4-12)
[2018-06-10 04:53] LABS: Calcium 8.7 MG/DL (8.5-10.1); Osmolality,Calculated 289.1 MOS/KG (273-304); Potassium 4.4 MMOL/L (3.5-5.1)
[2018-06-10 04:57] LABS: Hypochromasia 1+; Lymphocytes 3 % (20-55); Platelet Estimate Adequate; Segmented Neutrophils 94 % (50-85); Total Cells Counted 100
[2018-06-10] MEDS: METOPROLOL SUCCINATE XL 25 MG TABLET PO SCH (10:02)
[2018-06-10] MEDS: THEOPHYLLINE ER 300 MG TABLET PO SCH ×2 (10:02→21:30)
[2018-06-10] MEDS: METOCLOPRAMIDE 10 MG/10 ML UDCUP PO SCH ×4 (10:02→21:31)
[2018-06-10] MEDS: MONTELUKAST 10 MG TABLET PO SCH ×2 (10:02→21:30)
[2018-06-10] MEDS: POTASSIUM CHLORIDE 20 MEQ TABLET PO SCH ×2 (10:03→21:29)
[2018-06-10] MEDS: PANTOPRAZOLE 40 MG TABLET PO SCH (10:03)
[2018-06-10] MEDS: ROFLUMILAST 500 MCG TABLET PO SCH (10:03)
[2018-06-10] MEDS: FLUTICASONE 50 MCG NASAL SPRAY 16 GM BOTTLE BOTH NARES SCH (10:03)
[2018-06-10] MEDS: NICOTINE 21 MG/24 HR PATCH TRANSDERM SCH (10:04)
[2018-06-10] MEDS ORDERED: MORPHINE 4 MG/1 ML VIAL IV PRN (11:21)
[2018-06-10] MEDS: oxyCODONE/ACETAMINOPHEN 5-325 MG TABLET PO PRN ×2 (15:10→21:29)
[2018-06-10] MEDS: BACITRACIN OINT 0.9 GM PACK TOP SCH (16:14)
[2018-06-10] MEDS: ZALEPLON 5 MG CAPSULE PO PRN (21:30)
[2018-06-10] MEDS: cephALEXin 500 MG CAPSULE PO SCH (21:30)
[2018-06-10] MEDS: ENOXAPARIN 40 MG/0.4 ML SYRINGE SUBCUT SCH (21:31)
[2018-06-11] MEDS: ALBUTEROL/IPRATROPIUM 3 ML NEB RESP TX SCH ×5 (00:09→23:58)
[2018-06-11] MEDS: methylPREDNISolone SOD SUC 40 MG/1 ML VIAL IV SCH ×3 (00:30→16:22)
[2018-06-11] MEDS: KETOROLAC 15 MG/1 ML VIAL IV PRN ×3 (00:32→15:01)
[2018-06-11] MEDS: METOCLOPRAMIDE 10 MG/10 ML UDCUP PO SCH ×4 (07:33→20:47)
[2018-06-11 08:19] LABS: Basophils % 0.2 % (0.0-0.8); Hematocrit 43.1 VOL% (42.0-52.0); Hemoglobin 13.6 GM/DL (14.0-18.0); Immature Granulocytes % 1.4 %; Immature Granulocytes Absolute 0.18 #; Lymphocytes # 0.5 10*3/uL (1.4-4.0); Mean Corpuscular HGB Conc 31.6 GM/DL (32-36); Mean Corpuscular Hemoglobin 31 PG (27-34); Mean Corpuscular Volume 98.4 FL (87-102); Mean Platelet Volume 9.6 FL (9.6-12.0); Monocytes # 0.5 10*3/uL (0.11-0.8); Neutrophils # 11.4 10*3/uL (1.4-7.4); Neutrophils % 90.4 % (38.7-73.9); Platelet Count 310 T/CUMM (130-400); Red Blood Count 4.38 MC/CUMM (3.8-5.5); Red Cell Distribution Width 14.6 % (9.3-17.3); White Blood Count 12.6 T/CUMM (4-12)
[2018-06-11] MEDS: BACITRACIN OINT 0.9 GM PACK TOP SCH (08:35)
[2018-06-11] MEDS: NICOTINE 21 MG/24 HR PATCH TRANSDERM SCH (08:35)
[2018-06-11] MEDS: cephALEXin 500 MG CAPSULE PO SCH ×4 (08:36→20:46)
[2018-06-11] MEDS: METOPROLOL SUCCINATE XL 25 MG TABLET PO SCH (08:36)
[2018-06-11] MEDS: PANTOPRAZOLE 40 MG TABLET PO SCH (08:36)
[2018-06-11] MEDS: ROFLUMILAST 500 MCG TABLET PO SCH (08:36)
[2018-06-11] MEDS: POTASSIUM CHLORIDE 20 MEQ TABLET PO SCH ×2 (08:36→20:46)
[2018-06-11] MEDS: FLUTICASONE 50 MCG NASAL SPRAY 16 GM BOTTLE BOTH NARES SCH (08:37)
[2018-06-11] MEDS: THEOPHYLLINE ER 300 MG TABLET PO SCH ×2 (08:37→20:46)
[2018-06-11] MEDS: MONTELUKAST 10 MG TABLET PO SCH ×2 (08:37→20:46)
[2018-06-11 08:59] LABS: Calcium 9.1 MG/DL (8.5-10.1); Osmolality,Calculated 287.1 MOS/KG (273-304); Potassium 4.9 MMOL/L (3.5-5.1)
[2018-06-11 09:05] LABS: Anisocytosis Slight; Lymphocytes 1 % (20-55); Platelet Estimate Normal; Segmented Neutrophils 93 % (50-85); Total Cells Counted 100
[2018-06-11 09:06] LABS: Macrocytosis Slight
[2018-06-11] MEDS: oxyCODONE/ACETAMINOPHEN 5-325 MG TABLET PO PRN ×2 (10:41→19:03)
[2018-06-11] MEDS: ZALEPLON 5 MG CAPSULE PO PRN (20:46)
[2018-06-11] MEDS: ENOXAPARIN 40 MG/0.4 ML SYRINGE SUBCUT SCH (20:47)
[2018-06-12] MEDS: KETOROLAC 15 MG/1 ML VIAL IV PRN (00:25)
[2018-06-12] MEDS: methylPREDNISolone SOD SUC 40 MG/1 ML VIAL IV SCH ×2 (00:26→09:27)
[2018-06-12] MEDS: oxyCODONE/ACETAMINOPHEN 5-325 MG TABLET PO PRN (04:51)
[2018-06-12 05:51] LABS: Basophils % 0.2 % (0.0-0.8); Hematocrit 43.6 VOL% (42.0-52.0); Hemoglobin 13.4 GM/DL (14.0-18.0); Immature Granulocytes % 1.4 %; Lymphocytes # 0.3 10*3/uL (1.4-4.0); Mean Corpuscular HGB Conc 30.7 GM/DL (32-36); Mean Corpuscular Hemoglobin 31 PG (27-34); Mean Corpuscular Volume 99.8 FL (87-102); Mean Platelet Volume 9.8 FL (9.6-12.0); Monocytes # 0.3 10*3/uL (0.11-0.8); Monocytes % 2.3 % (1.7-12.7); Neutrophils # 13.9 10*3/uL (1.4-7.4); Neutrophils % 94.1 % (38.7-73.9); Platelet Count 328 T/CUMM (130-400); Red Blood Count 4.37 MC/CUMM (3.8-5.5); Red Cell Distribution Width 14.6 % (9.3-17.3); White Blood Count 14.7 T/CUMM (4-12)
[2018-06-12 06:18] LABS: Hypochromasia 1+; Lymphocytes 1 % (20-55); Platelet Estimate Adequate; Segmented Neutrophils 97 % (50-85); Total Cells Counted 100
[2018-06-12 06:19] LABS: Macrocytosis Slight
[2018-06-12 06:26] LABS: Calcium 8.8 MG/DL (8.5-10.1); Potassium 4.4 MMOL/L (3.5-5.1)
[2018-06-12 07:10] VITALS: BP 118/75
[2018-06-12] MEDS: ALBUTEROL/IPRATROPIUM 3 ML NEB RESP TX SCH (07:34)
[2018-06-12] MEDS: METOCLOPRAMIDE 10 MG/10 ML UDCUP PO SCH ×2 (08:21→11:19)
[2018-06-12] MEDS: POTASSIUM CHLORIDE 20 MEQ TABLET PO SCH (09:27)
[2018-06-12] MEDS: MONTELUKAST 10 MG TABLET PO SCH (09:27)
[2018-06-12] MEDS: cephALEXin 500 MG CAPSULE PO SCH (09:27)
[2018-06-12] MEDS: BACITRACIN OINT 0.9 GM PACK TOP SCH (09:27)
[2018-06-12] MEDS: THEOPHYLLINE ER 300 MG TABLET PO SCH (09:27)
[2018-06-12] MEDS: PANTOPRAZOLE 40 MG TABLET PO SCH (09:27)
[2018-06-12] MEDS: METOPROLOL SUCCINATE XL 25 MG TABLET PO SCH (09:28)
[2018-06-12] MEDS: NICOTINE 21 MG/24 HR PATCH TRANSDERM SCH (09:28)
[2018-06-12] MEDS: FLUTICASONE 50 MCG NASAL SPRAY 16 GM BOTTLE BOTH NARES SCH (09:28)
[2018-06-12] MEDS: ROFLUMILAST 500 MCG TABLET PO SCH (09:29)
== END 2018-06-12 11:37 | disposition swing bed (61) | DRG 191 ==
LOC: N.ED 12:02 → SUATTDRO 16:45 → N.EDINP 16:45 → N.2E 18:05
PROVIDERS: ADMIT Internal Medicine; ATTEND Internal Medicine

== ENCOUNTER 2018-06-25 15:17 | Inpatient (IN) ==
[2018-06-25] MEDS ORDERED: methylPREDNISolone SOD SUC 125 MG/2 ML VIAL IV STA (15:52)
[2018-06-25] MEDS ORDERED: ALBUTEROL/IPRATROPIUM 3 ML NEB RESP TX STA (15:52)
[2018-06-25 16:37] LABS: Basophils % 0.1 % (0.0-0.8); Hematocrit 39.6 VOL% (42.0-52.0); Hemoglobin 12.5 GM/DL (14.0-18.0); Immature Granulocytes % 0.8 %; Immature Granulocytes Absolute 0.18 #; Lymphocytes # 0.3 10*3/uL (1.4-4.0); Lymphocytes % 1.5 % (21.2-54.2); Mean Corpuscular HGB Conc 31.6 GM/DL (32-36); Mean Corpuscular Hemoglobin 31 PG (27-34); Mean Corpuscular Volume 99.2 FL (87-102); Mean Platelet Volume 9.9 FL (9.6-12.0); Monocytes # 0.5 10*3/uL (0.11-0.8); Monocytes % 2.2 % (1.7-12.7); Neutrophils # 20.4 10*3/uL (1.4-7.4); Neutrophils % 95.4 % (38.7-73.9); Platelet Count 273 T/CUMM (130-400); Red Blood Count 3.99 MC/CUMM (3.8-5.5); Red Cell Distribution Width 15.1 % (9.3-17.3); White Blood Count 21.4 T/CUMM (4-12)
[2018-06-25 16:58] LABS: Bilirubin,Total 1.2 MG/DL (0.2-1.0); Calcium 9.2 MG/DL (8.5-10.1); Osmolality,Calculated 295.7 MOS/KG (273-304); Potassium 4.4 MMOL/L (3.5-5.1); Total Protein 6.2 G/DL (6.4-8.3)
[2018-06-25 17:04] LABS: Lymphocytes 2 % (20-55); Segmented Neutrophils 98 % (50-85); Total Cells Counted 100
[2018-06-25 17:26] LABS: Hypochromasia 1+
[2018-06-25 17:27] LABS: Platelet Estimate Normal
[2018-06-25] MEDS ORDERED: ACETAMINOPHEN 325 MG TABLET PO PRN (19:16)
[2018-06-25] MEDS ORDERED: ALBUTEROL 2.5 MG/3 ML NEB RESP TX PRN (19:16)
[2018-06-25] MEDS ORDERED: ONDANSETRON 4 MG/2 ML VIAL IV PRN (19:16)
[2018-06-25] MEDS ORDERED: LACTULOSE 20 GM/30 ML UDCUP PO PRN (19:16)
[2018-06-25] MEDS ORDERED: oxyCODONE/ACETAMINOPHEN 5-325 MG TABLET PO PRN (19:16)
[2018-06-25] MEDS ORDERED: tiZANidine 4 MG TABLET PO PRN (19:16)
[2018-06-25] MEDS: ALBUTEROL/IPRATROPIUM 3 ML NEB RESP TX SCH (19:47)
[2018-06-25] MEDS ORDERED: LEVOFLOXACIN 500 MG TABLET PO SCH (21:00)
[2018-06-25] MEDS: PHENAZOPYRIDINE 95 MG TABLET PO SCH (21:28)
[2018-06-25] MEDS: ENOXAPARIN 40 MG/0.4 ML SYRINGE SUBCUT SCH (21:28)
[2018-06-25] MEDS: POTASSIUM CHLORIDE 20 MEQ TABLET PO SCH (21:29)
[2018-06-25] MEDS: SODIUM CHLORIDE 0.9% 1,000 ML IV SCH (21:30)
[2018-06-25] MEDS: METOCLOPRAMIDE 10 MG/10 ML UDCUP PO SCH (21:30)
[2018-06-25] MEDS: FLUTICASONE 50 MCG NASAL SPRAY 16 GM BOTTLE BOTH NARES SCH (21:30)
[2018-06-25] MEDS: MEROPENEM 1,000 MG in SODIUM CHLORIDE 0.9% 100 ML IV SCH (21:31)
[2018-06-25] MEDS: Glycopyrrolate/Formoterol Fum [Bevespi Aerosphere Inhaler] INH SCH (21:31)
[2018-06-25] MEDS: methylPREDNISolone SOD SUC 40 MG/1 ML VIAL IV SCH (23:52)
[2018-06-26] MEDS: ALBUTEROL/IPRATROPIUM 3 ML NEB RESP TX SCH ×4 (00:18→19:12)
[2018-06-26 04:19] LABS: Allen Test Positive
[2018-06-26 04:20] LABS: ABG Base Excess -5.4 MMOL/L (-2.5-2.5); ABG HCO3 19.9 MMOL/L (20-26); ABG Oxygen Saturation 95.2 % (95-100); ABG PH 7.376 (7.35-7.45); ABG TCO2 16.6 MMOL/L (23-27)
[2018-06-26] MEDS: methylPREDNISolone SOD SUC 40 MG/1 ML VIAL IV SCH ×3 (06:20→23:45)
[2018-06-26 07:51] LABS: Basophils % 0.1 % (0.0-0.8); Hematocrit 35.5 VOL% (42.0-52.0); Hemoglobin 11.1 GM/DL (14.0-18.0); Immature Granulocytes % 0.9 %; Immature Granulocytes Absolute 0.13 #; Lymphocytes # 0.2 10*3/uL (1.4-4.0); Lymphocytes % 1.7 % (21.2-54.2); Mean Corpuscular HGB Conc 31.3 GM/DL (32-36); Mean Corpuscular Hemoglobin 31 PG (27-34); Mean Corpuscular Volume 98.9 FL (87-102); Mean Platelet Volume 9.9 FL (9.6-12.0); Monocytes # 0.2 10*3/uL (0.11-0.8); Monocytes % 1.4 % (1.7-12.7); Neutrophils # 13.9 10*3/uL (1.4-7.4); Neutrophils % 95.9 % (38.7-73.9); Platelet Count 282 T/CUMM (130-400); Red Blood Count 3.59 MC/CUMM (3.8-5.5); Red Cell Distribution Width 15.2 % (9.3-17.3); White Blood Count 14.5 T/CUMM (4-12)
[2018-06-26 08:20] LABS: Anisocytosis 1+; Band Neutrophils 2 % (0-10); Lymphocytes 6 % (20-55); Platelet Estimate Normal; Segmented Neutrophils 92 % (50-85); Total Cells Counted 100
[2018-06-26 08:23] LABS: Osmolality,Calculated 286.3 MOS/KG (273-304); Troponin I 0.015 NG/ML (0.00-0.045)
[2018-06-26] MEDS: SODIUM CHLORIDE 0.9% 1,000 ML IV SCH ×2 (08:49→19:50)
[2018-06-26] MEDS ORDERED: MONTELUKAST 10 MG TABLET PO SCH (09:00)
[2018-06-26] MEDS: PHENAZOPYRIDINE 95 MG TABLET PO SCH ×3 (09:06→21:58)
[2018-06-26] MEDS: NICOTINE 21 MG/24 HR PATCH TRANSDERM SCH (09:07)
[2018-06-26] MEDS: acetaZOLAMIDE 250 MG TABLET PO SCH (09:07)
[2018-06-26] MEDS: TAMSULOSIN 0.4 MG CAPSULE PO SCH (09:09)
[2018-06-26] MEDS: ROFLUMILAST 500 MCG TABLET PO SCH (09:09)
[2018-06-26] MEDS: METOPROLOL SUCCINATE XL 25 MG TABLET PO SCH (09:09)
[2018-06-26] MEDS: POTASSIUM CHLORIDE 20 MEQ TABLET PO SCH ×2 (09:09→21:58)
[2018-06-26] MEDS: MEROPENEM 1,000 MG in SODIUM CHLORIDE 0.9% 100 ML IV SCH (09:19)
[2018-06-26] MEDS: PANTOPRAZOLE 40 MG TABLET PO SCH (10:09)
[2018-06-26] MEDS: METOCLOPRAMIDE 10 MG/10 ML UDCUP PO SCH ×4 (12:21→21:58)
[2018-06-26] MEDS: Umeclidinium Brm/Vilanterol Tr [Anoro Ellipta] INH SCH (13:59)
[2018-06-26] MEDS: Glycopyrrolate/Formoterol Fum [Bevespi Aerosphere Inhaler] INH SCH ×2 (13:59→21:56)
[2018-06-26] MEDS: MONTELUKAST 10 MG TABLET PO SCH (21:58)
[2018-06-26] MEDS: ENOXAPARIN 40 MG/0.4 ML SYRINGE SUBCUT SCH (21:58)
[2018-06-26] MEDS: FLUTICASONE 50 MCG NASAL SPRAY 16 GM BOTTLE BOTH NARES SCH (21:59)
[2018-06-27] MEDS: ALBUTEROL/IPRATROPIUM 3 ML NEB RESP TX SCH ×3 (00:43→14:05)
[2018-06-27] MEDS: methylPREDNISolone SOD SUC 40 MG/1 ML VIAL IV SCH ×2 (06:09→17:24)
[2018-06-27] MEDS: SODIUM CHLORIDE 0.9% 1,000 ML IV SCH ×2 (06:11→16:33)
[2018-06-27 09:11] LABS: Basophils % 0.1 % (0.0-0.8); Hemoglobin 11.3 GM/DL (14.0-18.0); Immature Granulocytes % 1.2 %; Immature Granulocytes Absolute 0.26 #; Lymphocytes # 0.1 10*3/uL (1.4-4.0); Lymphocytes % 0.6 % (21.2-54.2); Mean Corpuscular HGB Conc 31.4 GM/DL (32-36); Mean Corpuscular Hemoglobin 32 PG (27-34); Mean Corpuscular Volume 101.7 FL (87-102); Mean Platelet Volume 9.7 FL (9.6-12.0); Monocytes # 0.3 10*3/uL (0.11-0.8); Monocytes % 1.4 % (1.7-12.7); Neutrophils # 20.8 10*3/uL (1.4-7.4); Neutrophils % 96.7 % (38.7-73.9); Platelet Count 281 T/CUMM (130-400); Red Blood Count 3.54 MC/CUMM (3.8-5.5); Red Cell Distribution Width 15.5 % (9.3-17.3); White Blood Count 21.5 T/CUMM (4-12)
[2018-06-27 09:27] LABS: Calcium 8.9 MG/DL (8.5-10.1); Osmolality,Calculated 291.8 MOS/KG (273-304); Potassium 3.7 MMOL/L (3.5-5.1)
[2018-06-27 09:33] LABS: Hypochromasia 1+; Lymphocytes 1 % (20-55); Platelet Estimate Adequate; Segmented Neutrophils 97 % (50-85); Total Cells Counted 100
[2018-06-27] MEDS: acetaZOLAMIDE 250 MG TABLET PO SCH (09:42)
[2018-06-27] MEDS: ROFLUMILAST 500 MCG TABLET PO SCH (09:42)
[2018-06-27] MEDS: NICOTINE 21 MG/24 HR PATCH TRANSDERM SCH (09:52)
[2018-06-27] MEDS: METOCLOPRAMIDE 10 MG/10 ML UDCUP PO SCH ×4 (09:52→20:09)
[2018-06-27] MEDS: PHENAZOPYRIDINE 95 MG TABLET PO SCH ×3 (09:53→20:09)
[2018-06-27] MEDS: POTASSIUM CHLORIDE 20 MEQ TABLET PO SCH ×2 (09:54→20:09)
[2018-06-27] MEDS: MONTELUKAST 10 MG TABLET PO SCH ×2 (09:54→20:09)
[2018-06-27] MEDS: TAMSULOSIN 0.4 MG CAPSULE PO SCH (09:55)
[2018-06-27] MEDS: PANTOPRAZOLE 40 MG TABLET PO SCH (09:55)
[2018-06-27] MEDS: METOPROLOL SUCCINATE XL 25 MG TABLET PO SCH (09:55)
[2018-06-27] MEDS: LEVOFLOXACIN INJ 500 MG in PREMIX 1 EACH IV SCH (10:22)
[2018-06-27] MEDS: Glycopyrrolate/Formoterol Fum [Bevespi Aerosphere Inhaler] INH SCH ×2 (11:24→22:14)
[2018-06-27] MEDS: Umeclidinium Brm/Vilanterol Tr [Anoro Ellipta] INH SCH (11:24)
[2018-06-27] MEDS: busPIRone 10 MG TABLET PO SCH ×2 (11:53→20:08)
[2018-06-27] MEDS: THEOPHYLLINE ER 300 MG TABLET PO SCH ×2 (11:53→17:23)
[2018-06-27] MEDS ORDERED: LORazepam 0.5 MG TABLET PO ONE ×2 (13:30→19:49)
[2018-06-27] MEDS: ENOXAPARIN 40 MG/0.4 ML SYRINGE SUBCUT SCH (20:09)
[2018-06-27] MEDS: FLUTICASONE 50 MCG NASAL SPRAY 16 GM BOTTLE BOTH NARES SCH (20:10)
[2018-06-27] MEDS ORDERED: LEVALBUTEROL 1.25 MG/3 ML NEB RESP TX SCH (21:00)
[2018-06-27] MEDS: ZALEPLON 5 MG CAPSULE PO PRN (22:14)
[2018-06-28] MEDS: methylPREDNISolone SOD SUC 40 MG/1 ML VIAL IV SCH ×2 (01:08→09:18)
[2018-06-28] MEDS: ALBUTEROL/IPRATROPIUM 3 ML NEB RESP TX SCH (02:33)
[2018-06-28] MEDS: SODIUM CHLORIDE 0.9% 1,000 ML IV SCH ×2 (03:17→15:11)
[2018-06-28 04:48] LABS: Basophils % 0.1 % (0.0-0.8); Hematocrit 34.1 VOL% (42.0-52.0); Hemoglobin 10.6 GM/DL (14.0-18.0); Immature Granulocytes % 1.1 %; Immature Granulocytes Absolute 0.23 #; Lymphocytes # 0.3 10*3/uL (1.4-4.0); Lymphocytes % 1.3 % (21.2-54.2); Mean Corpuscular HGB Conc 31.1 GM/DL (32-36); Mean Corpuscular Hemoglobin 32 PG (27-34); Mean Corpuscular Volume 101.8 FL (87-102); Mean Platelet Volume 10.4 FL (9.6-12.0); Monocytes # 0.5 10*3/uL (0.11-0.8); Monocytes % 2.5 % (1.7-12.7); Neutrophils # 20.5 10*3/uL (1.4-7.4); Platelet Count 291 T/CUMM (130-400); Red Blood Count 3.35 MC/CUMM (3.8-5.5); Red Cell Distribution Width 15.3 % (9.3-17.3); White Blood Count 21.5 T/CUMM (4-12)
[2018-06-28 05:17] LABS: Potassium 3.4 MMOL/L (3.5-5.1)
[2018-06-28 06:40] LABS: Hypochromasia Slight; Lymphocytes 1 % (20-55); Myelocytes 1 %; Segmented Neutrophils 96 % (50-85); Total Cells Counted 100
[2018-06-28 06:41] LABS: Macrocytosis Slight
[2018-06-28] MEDS: LEVALBUTEROL 1.25 MG/3 ML NEB RESP TX SCH ×4 (07:10→19:41)
[2018-06-28] MEDS: NICOTINE 21 MG/24 HR PATCH TRANSDERM SCH (09:15)
[2018-06-28] MEDS: acetaZOLAMIDE 250 MG TABLET PO SCH (09:16)
[2018-06-28] MEDS: ROFLUMILAST 500 MCG TABLET PO SCH (09:16)
[2018-06-28] MEDS: METOCLOPRAMIDE 10 MG/10 ML UDCUP PO SCH ×2 (09:16→11:32)
[2018-06-28] MEDS: busPIRone 10 MG TABLET PO SCH (09:16)
[2018-06-28] MEDS: THEOPHYLLINE ER 300 MG TABLET PO SCH ×2 (09:17→16:57)
[2018-06-28] MEDS: MONTELUKAST 10 MG TABLET PO SCH ×2 (09:17→20:56)
[2018-06-28] MEDS: POTASSIUM CHLORIDE 20 MEQ TABLET PO SCH ×2 (09:17→20:56)
[2018-06-28] MEDS: METOPROLOL SUCCINATE XL 25 MG TABLET PO SCH (09:17)
[2018-06-28] MEDS: PHENAZOPYRIDINE 95 MG TABLET PO SCH (09:18)
[2018-06-28] MEDS: TAMSULOSIN 0.4 MG CAPSULE PO SCH (09:18)
[2018-06-28] MEDS: PANTOPRAZOLE 40 MG TABLET PO SCH (09:18)
[2018-06-28] MEDS: LEVOFLOXACIN INJ 500 MG in PREMIX 1 EACH IV SCH (09:19)
[2018-06-28] MEDS: Umeclidinium Brm/Vilanterol Tr [Anoro Ellipta] INH SCH (09:24)
[2018-06-28] MEDS: Glycopyrrolate/Formoterol Fum [Bevespi Aerosphere Inhaler] INH SCH ×2 (09:24→20:56)
[2018-06-28] MEDS: CLORAZEPATE 3.75 MG TABLET PO PRN (11:31)
[2018-06-28] MEDS: SERTRALINE 25 MG TABLET PO SCH (11:31)
[2018-06-28] MEDS ORDERED: METOPROLOL SUCCINATE XL 25 MG TABLET PO ONE (12:00)
[2018-06-28] MEDS: FLUTICASONE 50 MCG NASAL SPRAY 16 GM BOTTLE BOTH NARES SCH (20:55)
[2018-06-28] MEDS: ENOXAPARIN 40 MG/0.4 ML SYRINGE SUBCUT SCH (20:56)
[2018-06-28] MEDS: ZALEPLON 5 MG CAPSULE PO PRN (20:56)
[2018-06-28] MEDS: METOPROLOL TARTRATE 50 MG TABLET PO SCH (20:56)
[2018-06-28] MEDS ORDERED: methylPREDNISolone SOD SUC 40 MG/1 ML VIAL IV SCH (21:00)
[2018-06-29] MEDS: LEVALBUTEROL 1.25 MG/3 ML NEB RESP TX SCH ×4 (00:36→19:06)
[2018-06-29] MEDS: CLORAZEPATE 3.75 MG TABLET PO PRN ×2 (01:20→13:43)
[2018-06-29] MEDS: SODIUM CHLORIDE 0.9% 1,000 ML IV SCH (07:00)
[2018-06-29] MEDS ORDERED: methylPREDNISolone SOD SUC 40 MG/1 ML VIAL IV SCH (09:00)
[2018-06-29] MEDS ORDERED: METOPROLOL SUCCINATE XL 25 MG TABLET PO SCH (09:00)
[2018-06-29] MEDS: LEVOFLOXACIN INJ 500 MG in PREMIX 1 EACH IV SCH (09:20)
[2018-06-29] MEDS: MONTELUKAST 10 MG TABLET PO SCH ×2 (09:21→20:45)
[2018-06-29] MEDS: THEOPHYLLINE ER 300 MG TABLET PO SCH ×2 (09:21→16:36)
[2018-06-29] MEDS: predniSONE 20 MG TABLET PO SCH (09:22)
[2018-06-29] MEDS: METOPROLOL TARTRATE 50 MG TABLET PO SCH ×2 (09:22→20:45)
[2018-06-29] MEDS: PANTOPRAZOLE 40 MG TABLET PO SCH (09:22)
[2018-06-29] MEDS: POTASSIUM CHLORIDE 20 MEQ TABLET PO SCH ×2 (09:22→20:45)
[2018-06-29] MEDS: TAMSULOSIN 0.4 MG CAPSULE PO SCH (09:23)
[2018-06-29] MEDS: SERTRALINE 25 MG TABLET PO SCH (09:23)
[2018-06-29] MEDS: ROFLUMILAST 500 MCG TABLET PO SCH (09:24)
[2018-06-29] MEDS: Umeclidinium Brm/Vilanterol Tr [Anoro Ellipta] INH SCH (09:25)
[2018-06-29] MEDS: Glycopyrrolate/Formoterol Fum [Bevespi Aerosphere Inhaler] INH SCH ×2 (12:03→20:47)
[2018-06-29] MEDS: PHENAZOPYRIDINE 95 MG TABLET PO SCH (16:36)
[2018-06-29] MEDS: ENOXAPARIN 40 MG/0.4 ML SYRINGE SUBCUT SCH (20:45)
[2018-06-29] MEDS: ZALEPLON 5 MG CAPSULE PO PRN (20:48)
[2018-06-29] MEDS: FLUTICASONE 50 MCG NASAL SPRAY 16 GM BOTTLE BOTH NARES SCH (20:49)
[2018-06-30] MEDS: LEVALBUTEROL 1.25 MG/3 ML NEB RESP TX SCH ×4 (00:50→19:28)
[2018-06-30] MEDS: SODIUM CHLORIDE 0.9% 1,000 ML IV SCH (04:15)
[2018-06-30] MEDS: LEVOFLOXACIN INJ 500 MG in PREMIX 1 EACH IV SCH (10:33)
[2018-06-30] MEDS: THEOPHYLLINE ER 300 MG TABLET PO SCH ×2 (10:34→16:53)
[2018-06-30] MEDS: MONTELUKAST 10 MG TABLET PO SCH ×2 (10:34→20:41)
[2018-06-30] MEDS: SERTRALINE 25 MG TABLET PO SCH (10:34)
[2018-06-30] MEDS: PHENAZOPYRIDINE 95 MG TABLET PO SCH ×3 (10:34→16:53)
[2018-06-30] MEDS: POTASSIUM CHLORIDE 20 MEQ TABLET PO SCH ×2 (10:35→21:21)
[2018-06-30] MEDS: ROFLUMILAST 500 MCG TABLET PO SCH (10:35)
[2018-06-30] MEDS: TAMSULOSIN 0.4 MG CAPSULE PO SCH (10:35)
[2018-06-30] MEDS: predniSONE 20 MG TABLET PO SCH (10:35)
[2018-06-30] MEDS: PANTOPRAZOLE 40 MG TABLET PO SCH (10:35)
[2018-06-30] MEDS: Glycopyrrolate/Formoterol Fum [Bevespi Aerosphere Inhaler] INH SCH ×2 (11:14→21:22)
[2018-06-30] MEDS: Umeclidinium Brm/Vilanterol Tr [Anoro Ellipta] INH SCH (11:15)
[2018-06-30] MEDS: POTASSIUM CHLORIDE INJ 40 MEQ in SODIUM CHLORIDE 0.45% 1,000 ML IV SCH (14:04)
[2018-06-30] MEDS: CLORAZEPATE 3.75 MG TABLET PO PRN (14:05)
[2018-06-30] MEDS: ENOXAPARIN 40 MG/0.4 ML SYRINGE SUBCUT SCH (20:41)
[2018-06-30] MEDS: FLUTICASONE 50 MCG NASAL SPRAY 16 GM BOTTLE BOTH NARES SCH (20:42)
[2018-06-30] MEDS: METOPROLOL TARTRATE 25 MG TABLET PO SCH (21:21)
[2018-06-30] MEDS: ZALEPLON 5 MG CAPSULE PO PRN (23:35)
[2018-07-01] MEDS: LEVALBUTEROL 1.25 MG/3 ML NEB RESP TX SCH ×4 (01:10→20:23)
[2018-07-01] MEDS: POTASSIUM CHLORIDE INJ 40 MEQ in SODIUM CHLORIDE 0.45% 1,000 ML IV SCH (01:26)
[2018-07-01 05:44] LABS: Basophils % 0.2 % (0.0-0.8); Eosinophils % 0.3 % (0.00-10.9); Hematocrit 29.5 VOL% (42.0-52.0); Hemoglobin 9.1 GM/DL (14.0-18.0); Immature Granulocytes % 2.4 %; Immature Granulocytes Absolute 0.38 #; Lymphocytes # 1.5 10*3/uL (1.4-4.0); Lymphocytes % 9.6 % (21.2-54.2); Mean Corpuscular HGB Conc 30.8 GM/DL (32-36); Mean Corpuscular Hemoglobin 32 PG (27-34); Mean Corpuscular Volume 102.4 FL (87-102); Mean Platelet Volume 10.6 FL (9.6-12.0); Monocytes # 0.7 10*3/uL (0.11-0.8); Monocytes % 4.3 % (1.7-12.7); NRBC # 0.07 10*3/uL; Neutrophils # 13.1 10*3/uL (1.4-7.4); Neutrophils % 83.2 % (38.7-73.9); Platelet Count 314 T/CUMM (130-400); Red Blood Count 2.88 MC/CUMM (3.8-5.5); Red Cell Distribution Width 15.3 % (9.3-17.3); White Blood Count 15.8 T/CUMM (4-12)
[2018-07-01 06:11] LABS: Calcium 8.1 MG/DL (8.5-10.1); Osmolality,Calculated 279.4 MOS/KG (273-304); Potassium 4.1 MMOL/L (3.5-5.1)
[2018-07-01] MEDS: LEVOFLOXACIN 500 MG TABLET PO SCH (09:38)
[2018-07-01] MEDS: MONTELUKAST 10 MG TABLET PO SCH ×2 (09:39→20:55)
[2018-07-01] MEDS: PHENAZOPYRIDINE 95 MG TABLET PO SCH ×3 (09:39→17:10)
[2018-07-01] MEDS: POTASSIUM CHLORIDE 20 MEQ TABLET PO SCH ×2 (09:40→20:56)
[2018-07-01] MEDS: PANTOPRAZOLE 40 MG TABLET PO SCH (09:41)
[2018-07-01] MEDS: predniSONE 20 MG TABLET PO SCH (09:41)
[2018-07-01] MEDS: METOPROLOL TARTRATE 25 MG TABLET PO SCH (09:41)
[2018-07-01] MEDS: SERTRALINE 25 MG TABLET PO SCH (09:48)
[2018-07-01] MEDS: THEOPHYLLINE ER 300 MG TABLET PO SCH ×2 (09:49→17:10)
[2018-07-01] MEDS: MAGNESIUM CHLORIDE 64 MG TABLET PO SCH ×2 (09:49→20:56)
[2018-07-01] MEDS: ROFLUMILAST 500 MCG TABLET PO SCH (09:49)
[2018-07-01] MEDS: Umeclidinium Brm/Vilanterol Tr [Anoro Ellipta] INH SCH (09:51)
[2018-07-01] MEDS: TAMSULOSIN 0.4 MG CAPSULE PO SCH (09:51)
[2018-07-01] MEDS: Glycopyrrolate/Formoterol Fum [Bevespi Aerosphere Inhaler] INH SCH ×2 (09:51→21:42)
[2018-07-01] MEDS: FLUTICASONE 50 MCG NASAL SPRAY 16 GM BOTTLE BOTH NARES SCH (20:11)
[2018-07-01] MEDS: ENOXAPARIN 40 MG/0.4 ML SYRINGE SUBCUT SCH (20:56)
[2018-07-01] MEDS: ZALEPLON 5 MG CAPSULE PO PRN (23:03)
[2018-07-02] MEDS: LEVALBUTEROL 1.25 MG/3 ML NEB RESP TX SCH ×4 (00:25→19:22)
[2018-07-02] MEDS: CLORAZEPATE 3.75 MG TABLET PO PRN ×2 (06:27→21:00)
[2018-07-02] MEDS: METOPROLOL TARTRATE 25 MG TABLET PO SCH (10:09)
[2018-07-02] MEDS: TAMSULOSIN 0.4 MG CAPSULE PO SCH (10:10)
[2018-07-02] MEDS: PHENAZOPYRIDINE 95 MG TABLET PO SCH ×3 (10:10→17:33)
[2018-07-02] MEDS: MONTELUKAST 10 MG TABLET PO SCH ×2 (10:10→21:00)
[2018-07-02] MEDS: POTASSIUM CHLORIDE 20 MEQ TABLET PO SCH ×2 (10:10→21:00)
[2018-07-02] MEDS: THEOPHYLLINE ER 300 MG TABLET PO SCH ×2 (10:10→18:53)
[2018-07-02] MEDS: ROFLUMILAST 500 MCG TABLET PO SCH (10:10)
[2018-07-02] MEDS: predniSONE 20 MG TABLET PO SCH (10:10)
[2018-07-02] MEDS: PANTOPRAZOLE 40 MG TABLET PO SCH (10:11)
[2018-07-02] MEDS: SERTRALINE 25 MG TABLET PO SCH (10:11)
[2018-07-02] MEDS: LEVOFLOXACIN 500 MG TABLET PO SCH (10:11)
[2018-07-02] MEDS: MAGNESIUM CHLORIDE 64 MG TABLET PO SCH ×2 (10:11→21:00)
[2018-07-02] MEDS: Glycopyrrolate/Formoterol Fum [Bevespi Aerosphere Inhaler] INH SCH ×2 (10:12→21:05)
[2018-07-02] MEDS: Umeclidinium Brm/Vilanterol Tr [Anoro Ellipta] INH SCH (10:12)
[2018-07-02] MEDS ORDERED: TUBERCULIN SKIN TEST 0.1 ML SYRINGE INTRADERM ONE (10:46)
[2018-07-02] MEDS: ZALEPLON 5 MG CAPSULE PO PRN (21:00)
[2018-07-02] MEDS: ENOXAPARIN 40 MG/0.4 ML SYRINGE SUBCUT SCH (21:00)
[2018-07-02] MEDS: FLUTICASONE 50 MCG NASAL SPRAY 16 GM BOTTLE BOTH NARES SCH (21:04)
[2018-07-03] MEDS: LEVALBUTEROL 1.25 MG/3 ML NEB RESP TX SCH ×4 (01:15→19:52)
[2018-07-03] MEDS ORDERED: ZINC OXIDE PASTE 113 GM TUBE TOP PRN (04:06)
[2018-07-03] MEDS: CLORAZEPATE 3.75 MG TABLET PO PRN ×2 (06:18→21:10)
[2018-07-03] MEDS: TAMSULOSIN 0.4 MG CAPSULE PO SCH (08:20)
[2018-07-03] MEDS: ROFLUMILAST 500 MCG TABLET PO SCH (08:20)
[2018-07-03] MEDS: PHENAZOPYRIDINE 95 MG TABLET PO SCH ×3 (08:20→17:16)
[2018-07-03] MEDS: THEOPHYLLINE ER 300 MG TABLET PO SCH ×2 (08:20→17:16)
[2018-07-03] MEDS: MAGNESIUM CHLORIDE 64 MG TABLET PO SCH ×2 (08:20→21:10)
[2018-07-03] MEDS: METOPROLOL TARTRATE 25 MG TABLET PO SCH (08:20)
[2018-07-03] MEDS: POTASSIUM CHLORIDE 20 MEQ TABLET PO SCH ×2 (08:20→21:10)
[2018-07-03] MEDS: MONTELUKAST 10 MG TABLET PO SCH ×2 (08:20→21:10)
[2018-07-03] MEDS: LEVOFLOXACIN 500 MG TABLET PO SCH (08:21)
[2018-07-03] MEDS: Glycopyrrolate/Formoterol Fum [Bevespi Aerosphere Inhaler] INH SCH ×2 (08:21→21:11)
[2018-07-03] MEDS: Umeclidinium Brm/Vilanterol Tr [Anoro Ellipta] INH SCH (08:21)
[2018-07-03] MEDS: predniSONE 20 MG TABLET PO SCH (08:21)
[2018-07-03] MEDS: PANTOPRAZOLE 40 MG TABLET PO SCH (08:21)
[2018-07-03] MEDS: SERTRALINE 25 MG TABLET PO SCH (08:21)
[2018-07-03] MEDS: FLUTICASONE 50 MCG NASAL SPRAY 16 GM BOTTLE BOTH NARES SCH (18:36)
[2018-07-03] MEDS: ENOXAPARIN 40 MG/0.4 ML SYRINGE SUBCUT SCH (21:10)
[2018-07-04] MEDS: LEVALBUTEROL 1.25 MG/3 ML NEB RESP TX SCH ×2 (01:27→07:15)
[2018-07-04] MEDS: CLORAZEPATE 3.75 MG TABLET PO PRN (08:57)
[2018-07-04] MEDS: METOPROLOL TARTRATE 25 MG TABLET PO SCH (08:57)
[2018-07-04] MEDS: PHENAZOPYRIDINE 95 MG TABLET PO SCH (08:57)
[2018-07-04] MEDS: TAMSULOSIN 0.4 MG CAPSULE PO SCH (08:58)
[2018-07-04] MEDS: MAGNESIUM CHLORIDE 64 MG TABLET PO SCH (08:58)
[2018-07-04] MEDS: SERTRALINE 25 MG TABLET PO SCH (08:58)
[2018-07-04] MEDS: LEVOFLOXACIN 500 MG TABLET PO SCH (08:58)
[2018-07-04] MEDS: predniSONE 20 MG TABLET PO SCH (08:58)
[2018-07-04] MEDS: MONTELUKAST 10 MG TABLET PO SCH (08:58)
[2018-07-04] MEDS: ROFLUMILAST 500 MCG TABLET PO SCH (08:58)
[2018-07-04] MEDS: POTASSIUM CHLORIDE 20 MEQ TABLET PO SCH (08:58)
[2018-07-04] MEDS: THEOPHYLLINE ER 300 MG TABLET PO SCH (08:58)
[2018-07-04] MEDS: PANTOPRAZOLE 40 MG TABLET PO SCH (08:59)
[2018-07-04] MEDS: Glycopyrrolate/Formoterol Fum [Bevespi Aerosphere Inhaler] INH SCH (08:59)
[2018-07-04] MEDS: Umeclidinium Brm/Vilanterol Tr [Anoro Ellipta] INH SCH (08:59)
[2018-07-04 11:32] VITALS: BP 105/69
== END 2018-07-04 12:14 | DRG 192 ==
LOC: EDBD → EDUNIT# → N.ED 15:17 → N.EDINP 15:17 → SUATTDRO 17:30 → N.2E 18:33 → SUATTDRO 06-30 07:05
PROVIDERS: ADMIT Internal Medicine; ATTEND Internal Medicine Cardiovascular Disease

== ENCOUNTER 2018-07-27 01:11 | Inpatient (IN) ==
[2018-07-27] MEDS ORDERED: ALBUTEROL/IPRATROPIUM 3 ML NEB RESP TX STA (01:41)
[2018-07-27] MEDS ORDERED: methylPREDNISolone SOD SUC 125 MG/2 ML VIAL IV STA (01:41)
[2018-07-27] MEDS ORDERED: SODIUM CHLORIDE 0.9% 1,000 ML IV STA (01:41)
[2018-07-27] MEDS ORDERED: VANCOMYCIN INJ 1,000 MG in SODIUM CHLORIDE 0.9% 250 ML IV STA (01:43)
[2018-07-27] MEDS ORDERED: CEFEPIME 2,000 MG in SODIUM CHLORIDE 0.9% 100 ML IV STA (01:43)
[2018-07-27 01:47] LABS: Basophils # 0.1 10*3/uL (0.0-0.2); Basophils % 0.3 % (0.0-0.8); Hemoglobin 10.7 GM/DL (14.0-18.0); Immature Granulocytes % 0.8 %; Immature Granulocytes Absolute 0.13 #; Lymphocytes % 5.9 % (21.2-54.2); Mean Corpuscular HGB Conc 31.5 GM/DL (32-36); Mean Corpuscular Hemoglobin 34 PG (27-34); Mean Corpuscular Volume 108.3 FL (87-102); Monocytes # 0.9 10*3/uL (0.11-0.8); Monocytes % 5.3 % (1.7-12.7); Neutrophils # 14.9 10*3/uL (1.4-7.4); Neutrophils % 87.7 % (38.7-73.9); Platelet Count 276 T/CUMM (130-400); Red Blood Count 3.14 MC/CUMM (3.8-5.5); Red Cell Distribution Width 13.4 % (9.3-17.3)
[2018-07-27 02:00] LABS: Albumin 2.7 G/DL (3.4-5.0); Bilirubin,Total 0.4 MG/DL (0.2-1.0); Calcium 8.6 MG/DL (8.5-10.1); Osmolality,Calculated 276.5 MOS/KG (273-304); Potassium 3.5 MMOL/L (3.5-5.1); Total Protein 6.2 G/DL (6.4-8.3)
[2018-07-27 02:59] LABS: VBG Base Excess -3.5 MEQ/L (0-4); VBG HCO3 21.5 MEQ/L (24-28); VBG Oxygen Saturation 98.3 %; VBG PCO2 34.6 MMHG (41-51); VBG PH 7.388
[2018-07-27] MEDS ORDERED: ONDANSETRON 4 MG/2 ML VIAL IV PRN (03:12)
[2018-07-27] MEDS ORDERED: ALBUTEROL 2.5 MG/3 ML NEB RESP TX PRN (03:12)
[2018-07-27] MEDS ORDERED: tiZANidine 4 MG TABLET PO PRN (03:17)
[2018-07-27] MEDS ORDERED: FLUTICASONE 50 MCG NASAL SPRAY 16 GM BOTTLE BOTH NARES SCH (03:30)
[2018-07-27] MEDS: ACETAMINOPHEN 500 MG TABLET PO SCH ×6 (05:13→23:49)
[2018-07-27] MEDS: MORPHINE 4 MG/1 ML VIAL IV PRN ×2 (05:13→10:35)
[2018-07-27] MEDS ORDERED: LEVALBUTEROL 1.25 MG/3 ML NEB RESP TX SCH (06:00)
[2018-07-27] MEDS ORDERED: ALBUTEROL/IPRATROPIUM 3 ML NEB RESP TX SCH (07:00)
[2018-07-27] MEDS: LEVALBUTEROL 1.25 MG/3 ML NEB RESP TX SCH ×2 (07:45→13:35)
[2018-07-27 08:35] LABS: Basophils % 0.2 % (0.0-0.8); Hematocrit 30.5 VOL% (42.0-52.0); Hemoglobin 9.7 GM/DL (14.0-18.0); Immature Granulocytes % 0.9 %; Immature Granulocytes Absolute 0.15 #; Lymphocytes # 0.5 10*3/uL (1.4-4.0); Mean Corpuscular HGB Conc 31.8 GM/DL (32-36); Mean Corpuscular Hemoglobin 35 PG (27-34); Mean Corpuscular Volume 108.5 FL (87-102); Mean Platelet Volume 9.2 FL (9.6-12.0); Monocytes # 0.3 10*3/uL (0.11-0.8); Monocytes % 1.5 % (1.7-12.7); Neutrophils # 15.2 10*3/uL (1.4-7.4); Neutrophils % 94.4 % (38.7-73.9); Platelet Count 279 T/CUMM (130-400); Red Blood Count 2.81 MC/CUMM (3.8-5.5); Red Cell Distribution Width 13.3 % (9.3-17.3); White Blood Count 16.1 T/CUMM (4-12)
[2018-07-27] MEDS ORDERED: Glycopyrrolate/Formoterol Fum [Bevespi Aerosphere Inhaler] INH SCH (09:00)
[2018-07-27] MEDS ORDERED: Umeclidinium Brm/Vilanterol Tr [Anoro Ellipta] INH SCH (09:00)
[2018-07-27 09:02] LABS: Alanine Aminotransferase 23 U/L (16-61); Albumin 2.4 G/DL (3.4-5.0); Alkaline Phosphatase 83 U/L (45-117); Anisocytosis 1+; Aspartate Amino Transferase 11 U/L (0-37); Band Neutrophils 17 % (0-10); Bilirubin,Total < 0.39 MG/DL (0.2-1.0); Blood Urea Nitrogen 11 MG/DL (7-18); Calcium 8.1 MG/DL (8.5-10.1); Glucose 108 MG/DL (74-106); Lymphocytes 2 % (20-55); Macrocytosis 1+; Platelet Estimate Normal; Potassium 3.5 MMOL/L (3.5-5.1); Segmented Neutrophils 81 % (50-85); Sodium 136 MMOL/L (136-145); Total Cells Counted 100; Total Protein 5.7 G/DL (6.4-8.3)
[2018-07-27] MEDS: NICOTINE 21 MG/24 HR PATCH TRANSDERM SCH (10:00)
[2018-07-27 10:23] LABS: Folate 17.5 NG/ML (5.4-24.0)
[2018-07-27] MEDS ORDERED: METOPROLOL TARTRATE 25 MG TABLET PO ONE (10:32)
[2018-07-27] MEDS ORDERED: DILTIAZEM 30 MG TABLET PO ONE (10:33)
[2018-07-27] MEDS: methylPREDNISolone SOD SUC 40 MG/1 ML VIAL IV SCH ×3 (10:37→21:28)
[2018-07-27] MEDS: METOCLOPRAMIDE 10 MG/10 ML UDCUP PO SCH ×4 (10:39→21:28)
[2018-07-27] MEDS: ENOXAPARIN 40 MG/0.4 ML SYRINGE SUBCUT SCH (10:40)
[2018-07-27] MEDS: THEOPHYLLINE ER 300 MG TABLET PO SCH ×2 (10:41→17:46)
[2018-07-27] MEDS: CLORAZEPATE 3.75 MG TABLET PO PRN ×2 (10:41→17:00)
[2018-07-27] MEDS: oxyCODONE/ACETAMINOPHEN 5-325 MG TABLET PO PRN (10:42)
[2018-07-27] MEDS: acetaZOLAMIDE 250 MG TABLET PO SCH (10:42)
[2018-07-27] MEDS: POTASSIUM CHLORIDE 20 MEQ TABLET PO SCH ×2 (10:44→21:28)
[2018-07-27] MEDS: PANTOPRAZOLE 40 MG TABLET PO SCH (10:44)
[2018-07-27] MEDS: TAMSULOSIN 0.4 MG CAPSULE PO SCH (10:45)
[2018-07-27] MEDS: SERTRALINE 25 MG TABLET PO SCH (10:45)
[2018-07-27] MEDS: ROFLUMILAST 500 MCG TABLET PO SCH (10:45)
[2018-07-27] MEDS: MONTELUKAST 10 MG TABLET PO SCH (11:00)
[2018-07-27 11:13] LABS: ABG Base Excess -2.2 MMOL/L (-2.5-2.5); ABG HCO3 22.5 MMOL/L (20-26); ABG Oxygen Saturation 98.3 % (95-100); ABG PCO2 38.3 MM HG (35-48); ABG PH 7.378 (7.35-7.45); ABG TCO2 20.6 MMOL/L (23-27)
[2018-07-27] MEDS: ALBUTEROL/IPRATROPIUM 3 ML NEB RESP TX SCH ×2 (13:34→19:28)
[2018-07-27] MEDS: CEFEPIME 1,000 MG in SYRINGE 1 EACH IV SCH ×2 (14:43→21:27)
[2018-07-27] MEDS: METOPROLOL TARTRATE 25 MG TABLET PO SCH (17:45)
[2018-07-27] MEDS: ARFORMOTEROL 15 MCG/2 ML NEB RESP TX SCH (19:28)
[2018-07-27] MEDS: BUDESONIDE 0.5 MG/2 ML NEB RESP TX SCH (19:28)
[2018-07-27] MEDS: MELATONIN 3 MG TABLET PO SCH (21:27)
[2018-07-27] MEDS: DILTIAZEM 30 MG TABLET PO SCH (21:27)
[2018-07-28] MEDS: ALBUTEROL/IPRATROPIUM 3 ML NEB RESP TX SCH ×2 (00:10→08:27)
[2018-07-28] MEDS: MORPHINE 4 MG/1 ML VIAL IV PRN ×3 (01:05→17:40)
[2018-07-28] MEDS: methylPREDNISolone SOD SUC 40 MG/1 ML VIAL IV SCH ×3 (03:58→16:30)
[2018-07-28] MEDS: CEFEPIME 1,000 MG in SYRINGE 1 EACH IV SCH ×3 (04:02→21:45)
[2018-07-28] MEDS: ACETAMINOPHEN 500 MG TABLET PO SCH ×3 (04:16→11:40)
[2018-07-28 07:39] LABS: Basophils % 0.1 % (0.0-0.8); Hematocrit 34.6 VOL% (42.0-52.0); Hemoglobin 10.7 GM/DL (14.0-18.0); Immature Granulocytes % 0.9 %; Immature Granulocytes Absolute 0.13 #; Lymphocytes # 0.5 10*3/uL (1.4-4.0); Lymphocytes % 3.3 % (21.2-54.2); Mean Corpuscular HGB Conc 30.9 GM/DL (32-36); Mean Corpuscular Hemoglobin 34 PG (27-34); Mean Corpuscular Volume 108.5 FL (87-102); Monocytes # 0.3 10*3/uL (0.11-0.8); Monocytes % 1.9 % (1.7-12.7); Neutrophils # 13.8 10*3/uL (1.4-7.4); Neutrophils % 93.8 % (38.7-73.9); Platelet Count 316 T/CUMM (130-400); Red Blood Count 3.19 MC/CUMM (3.8-5.5); Red Cell Distribution Width 12.7 % (9.3-17.3); White Blood Count 14.7 T/CUMM (4-12)
[2018-07-28 08:01] LABS: Albumin 2.6 G/DL (3.4-5.0); Bilirubin,Total 0.4 MG/DL (0.2-1.0); Calcium 9.2 MG/DL (8.5-10.1); Osmolality,Calculated 279.5 MOS/KG (273-304); Potassium 4.8 MMOL/L (3.5-5.1); Total Protein 6.4 G/DL (6.4-8.3)
[2018-07-28] MEDS: ENOXAPARIN 40 MG/0.4 ML SYRINGE SUBCUT SCH (08:06)
[2018-07-28] MEDS: DILTIAZEM 30 MG TABLET PO SCH ×3 (08:06→21:45)
[2018-07-28] MEDS: MONTELUKAST 10 MG TABLET PO SCH (08:07)
[2018-07-28] MEDS: PANTOPRAZOLE 40 MG TABLET PO SCH (08:07)
[2018-07-28] MEDS: THEOPHYLLINE ER 300 MG TABLET PO SCH ×2 (08:07→16:29)
[2018-07-28] MEDS: POTASSIUM CHLORIDE 20 MEQ TABLET PO SCH ×2 (08:07→21:49)
[2018-07-28] MEDS: METOPROLOL TARTRATE 25 MG TABLET PO SCH ×2 (08:08→21:45)
[2018-07-28] MEDS: NICOTINE 21 MG/24 HR PATCH TRANSDERM SCH (08:08)
[2018-07-28] MEDS: ROFLUMILAST 500 MCG TABLET PO SCH (08:08)
[2018-07-28] MEDS: SERTRALINE 25 MG TABLET PO SCH (08:08)
[2018-07-28] MEDS: acetaZOLAMIDE 250 MG TABLET PO SCH (08:08)
[2018-07-28] MEDS: TAMSULOSIN 0.4 MG CAPSULE PO SCH (08:08)
[2018-07-28] MEDS: METOCLOPRAMIDE 10 MG/10 ML UDCUP PO SCH ×4 (08:09→21:49)
[2018-07-28] MEDS: BUDESONIDE 0.5 MG/2 ML NEB RESP TX SCH ×2 (08:26→20:00)
[2018-07-28] MEDS: ARFORMOTEROL 15 MCG/2 ML NEB RESP TX SCH ×2 (08:26→20:03)
[2018-07-28 08:59] LABS: Anisocytosis Slight; Band Neutrophils 17 % (0-10); Macrocytosis 1+; Platelet Estimate Normal; Polychromasia Slight; Segmented Neutrophils 80 % (50-85); Spherocytes 1+; Total Cells Counted 100
[2018-07-28] MEDS ORDERED: METOPROLOL TARTRATE 25 MG TABLET PO ONE (10:05)
[2018-07-28] MEDS ORDERED: MORPHINE 4 MG/1 ML VIAL IV ONE (10:07)
[2018-07-28] MEDS ORDERED: ACETAMINOPHEN 500 MG TABLET PO PRN (13:16)
[2018-07-28] MEDS: CLORAZEPATE 3.75 MG TABLET PO SCH ×2 (16:29→21:49)
[2018-07-28] MEDS: MELATONIN 3 MG TABLET PO SCH (21:49)
[2018-07-29] MEDS: methylPREDNISolone SOD SUC 40 MG/1 ML VIAL IV SCH ×3 (00:52→15:34)
[2018-07-29] MEDS: CEFEPIME 1,000 MG in SYRINGE 1 EACH IV SCH ×3 (04:52→20:48)
[2018-07-29 07:18] LABS: Basophils % 0.1 % (0.0-0.8); Hematocrit 31.7 VOL% (42.0-52.0); Immature Granulocytes % 0.7 %; Lymphocytes # 0.4 10*3/uL (1.4-4.0); Lymphocytes % 3.1 % (21.2-54.2); Mean Corpuscular HGB Conc 31.5 GM/DL (32-36); Mean Corpuscular Hemoglobin 34 PG (27-34); Mean Corpuscular Volume 107.1 FL (87-102); Mean Platelet Volume 9.4 FL (9.6-12.0); Monocytes # 0.3 10*3/uL (0.11-0.8); Monocytes % 2.1 % (1.7-12.7); NRBC # 0.02 10*3/uL; Neutrophils # 12.9 10*3/uL (1.4-7.4); Platelet Count 361 T/CUMM (130-400); Red Blood Count 2.96 MC/CUMM (3.8-5.5); Red Cell Distribution Width 12.8 % (9.3-17.3); White Blood Count 13.8 T/CUMM (4-12)
[2018-07-29] MEDS: BUDESONIDE 0.5 MG/2 ML NEB RESP TX SCH ×2 (07:32→19:53)
[2018-07-29] MEDS: ARFORMOTEROL 15 MCG/2 ML NEB RESP TX SCH ×2 (07:32→19:53)
[2018-07-29 07:40] LABS: Calcium 9.3 MG/DL (8.5-10.1); Osmolality,Calculated 283.4 MOS/KG (273-304); Potassium 3.8 MMOL/L (3.5-5.1)
[2018-07-29 07:47] LABS: Anisocytosis 1+; Band Neutrophils 17 % (0-10); Lymphocytes 3 % (20-55); Platelet Estimate Normal; Segmented Neutrophils 80 % (50-85); Total Cells Counted 100
[2018-07-29] MEDS: CLORAZEPATE 3.75 MG TABLET PO SCH ×3 (08:49→20:48)
[2018-07-29] MEDS: METOPROLOL TARTRATE 25 MG TABLET PO SCH ×2 (08:49→20:51)
[2018-07-29] MEDS: acetaZOLAMIDE 250 MG TABLET PO SCH (08:49)
[2018-07-29] MEDS: DILTIAZEM 30 MG TABLET PO SCH ×4 (08:50→20:51)
[2018-07-29] MEDS: SERTRALINE 25 MG TABLET PO SCH (08:50)
[2018-07-29] MEDS: THEOPHYLLINE ER 300 MG TABLET PO SCH ×2 (08:50→17:14)
[2018-07-29] MEDS: TAMSULOSIN 0.4 MG CAPSULE PO SCH (08:50)
[2018-07-29] MEDS: POTASSIUM CHLORIDE 20 MEQ TABLET PO SCH ×2 (08:51→20:49)
[2018-07-29] MEDS: PANTOPRAZOLE 40 MG TABLET PO SCH (08:51)
[2018-07-29] MEDS: ROFLUMILAST 500 MCG TABLET PO SCH (08:51)
[2018-07-29] MEDS: METOCLOPRAMIDE 10 MG/10 ML UDCUP PO SCH ×4 (08:51→21:32)
[2018-07-29] MEDS: NICOTINE 21 MG/24 HR PATCH TRANSDERM SCH (08:56)
[2018-07-29] MEDS: MONTELUKAST 10 MG TABLET PO SCH (09:02)
[2018-07-29] MEDS: ENOXAPARIN 40 MG/0.4 ML SYRINGE SUBCUT SCH (09:03)
[2018-07-29] MEDS: MORPHINE 4 MG/1 ML VIAL IV PRN ×3 (10:55→18:31)
[2018-07-29] MEDS: MELATONIN 3 MG TABLET PO SCH (20:48)
[2018-07-29] MEDS: oxyCODONE/ACETAMINOPHEN 5-325 MG TABLET PO PRN (21:32)
[2018-07-30] MEDS: methylPREDNISolone SOD SUC 40 MG/1 ML VIAL IV SCH ×3 (00:02→17:20)
[2018-07-30] MEDS: MORPHINE 4 MG/1 ML VIAL IV PRN ×5 (02:05→23:36)
[2018-07-30] MEDS: CEFEPIME 1,000 MG in SYRINGE 1 EACH IV SCH (04:54)
[2018-07-30 06:47] LABS: Basophils % 0.1 % (0.0-0.8); Hematocrit 30.7 VOL% (42.0-52.0); Hemoglobin 9.5 GM/DL (14.0-18.0); Immature Granulocytes % 3.6 %; Immature Granulocytes Absolute 0.44 #; Lymphocytes # 0.6 10*3/uL (1.4-4.0); Lymphocytes % 4.6 % (21.2-54.2); Mean Corpuscular HGB Conc 30.9 GM/DL (32-36); Mean Corpuscular Hemoglobin 33 PG (27-34); Mean Corpuscular Volume 107.7 FL (87-102); Mean Platelet Volume 9.2 FL (9.6-12.0); Monocytes # 0.3 10*3/uL (0.11-0.8); Monocytes % 2.2 % (1.7-12.7); Neutrophils % 89.5 % (38.7-73.9); Platelet Count 335 T/CUMM (130-400); Red Blood Count 2.85 MC/CUMM (3.8-5.5); Red Cell Distribution Width 12.7 % (9.3-17.3); White Blood Count 12.3 T/CUMM (4-12)
[2018-07-30 07:08] LABS: Hypochromasia 1+; Lymphocytes 6 % (20-55); Platelet Estimate Adequate; Segmented Neutrophils 94 % (50-85); Total Cells Counted 100
[2018-07-30 07:13] LABS: Calcium 8.9 MG/DL (8.5-10.1); Osmolality,Calculated 284.7 MOS/KG (273-304); Potassium 4.4 MMOL/L (3.5-5.1)
[2018-07-30] MEDS: BUDESONIDE 0.5 MG/2 ML NEB RESP TX SCH ×2 (07:20→19:12)
[2018-07-30] MEDS: ARFORMOTEROL 15 MCG/2 ML NEB RESP TX SCH (07:20)
[2018-07-30] MEDS: acetaZOLAMIDE 250 MG TABLET PO SCH (08:54)
[2018-07-30] MEDS: POTASSIUM CHLORIDE 20 MEQ TABLET PO SCH (08:54)
[2018-07-30] MEDS: PANTOPRAZOLE 40 MG TABLET PO SCH (08:55)
[2018-07-30] MEDS: TAMSULOSIN 0.4 MG CAPSULE PO SCH (08:55)
[2018-07-30] MEDS: THEOPHYLLINE ER 300 MG TABLET PO SCH ×2 (08:55→17:29)
[2018-07-30] MEDS: ROFLUMILAST 500 MCG TABLET PO SCH (08:55)
[2018-07-30] MEDS: CLORAZEPATE 3.75 MG TABLET PO SCH ×3 (08:55→21:42)
[2018-07-30] MEDS: MONTELUKAST 10 MG TABLET PO SCH (08:57)
[2018-07-30] MEDS: METOCLOPRAMIDE 10 MG/10 ML UDCUP PO SCH ×4 (08:57→21:43)
[2018-07-30] MEDS: DILTIAZEM 30 MG TABLET PO SCH (08:58)
[2018-07-30] MEDS: SERTRALINE 25 MG TABLET PO SCH (08:59)
[2018-07-30] MEDS: ENOXAPARIN 40 MG/0.4 ML SYRINGE SUBCUT SCH (09:00)
[2018-07-30] MEDS: METOPROLOL TARTRATE 25 MG TABLET PO SCH (09:00)
[2018-07-30] MEDS ORDERED: AZITHROMYCIN INJ 500 MG in SODIUM CHLORIDE 0.9% 250 ML IV SCH (09:30)
[2018-07-30] MEDS: NICOTINE 21 MG/24 HR PATCH TRANSDERM SCH (09:30)
[2018-07-30] MEDS ORDERED: APIXABAN 5 MG TABLET PO SCH (10:30)
[2018-07-30] MEDS: CYANOCOBALAMIN 1000 MCG/1 ML VIAL IM SCH (11:50)
[2018-07-30] MEDS ORDERED: ALBUTEROL 2.5 MG/3 ML NEB RESP TX PRN (13:41)
[2018-07-30] MEDS: oxyCODONE/ACETAMINOPHEN 5-325 MG TABLET PO PRN (14:13)
[2018-07-30] MEDS: ALBUTEROL/IPRATROPIUM 3 ML NEB RESP TX SCH ×3 (14:50→22:52)
[2018-07-30] MEDS ORDERED: BISACODYL 5 MG TABLET PO PRN (15:41)
[2018-07-30] MEDS: MELATONIN 3 MG TABLET PO SCH (21:42)
[2018-07-30] MEDS ORDERED: HEPARIN DRIP 25,000 UNITS/500 ML PREMIX IV SCH (22:00)
[2018-07-31] MEDS: oxyCODONE/ACETAMINOPHEN 5-325 MG TABLET PO PRN ×2 (01:10→08:32)
[2018-07-31] MEDS: methylPREDNISolone SOD SUC 40 MG/1 ML VIAL IV SCH ×2 (01:11→08:32)
[2018-07-31] MEDS: ALBUTEROL/IPRATROPIUM 3 ML NEB RESP TX SCH ×2 (03:05→07:27)
[2018-07-31] MEDS: MORPHINE 4 MG/1 ML VIAL IV PRN ×4 (05:00→20:41)
[2018-07-31 06:08] LABS: Basophils # 0.1 10*3/uL (0.0-0.2); Basophils % 0.3 % (0.0-0.8); Hematocrit 30.1 VOL% (42.0-52.0); Hemoglobin 9.6 GM/DL (14.0-18.0); Immature Granulocytes % 5.6 %; Immature Granulocytes Absolute 0.97 #; Lymphocytes # 0.8 10*3/uL (1.4-4.0); Lymphocytes % 4.4 % (21.2-54.2); Mean Corpuscular HGB Conc 31.9 GM/DL (32-36); Mean Corpuscular Hemoglobin 34 PG (27-34); Mean Corpuscular Volume 107.1 FL (87-102); Mean Platelet Volume 9.4 FL (9.6-12.0); Monocytes # 0.4 10*3/uL (0.11-0.8); Monocytes % 2.2 % (1.7-12.7); NRBC # 0.06 10*3/uL; Neutrophils # 15.2 10*3/uL (1.4-7.4); Neutrophils % 87.5 % (38.7-73.9); Platelet Count 353 T/CUMM (130-400); Red Blood Count 2.81 MC/CUMM (3.8-5.5); Red Cell Distribution Width 12.8 % (9.3-17.3); White Blood Count 17.4 T/CUMM (4-12)
[2018-07-31 07:08] LABS: Band Neutrophils 2 % (0-10); Hypochromasia 1+; Lymphocytes 5 % (20-55); Platelet Estimate Adequate; Segmented Neutrophils 91 % (50-85); Total Cells Counted 100
[2018-07-31] MEDS: BUDESONIDE 0.5 MG/2 ML NEB RESP TX SCH (07:27)
[2018-07-31 08:00] LABS: Apearance,Urine Turbid (Clear); RBC,Urine 24104 /HPF (0-4); Urine Color Red (Yellow); WBC,Urine 280 /HPF (0-6)
[2018-07-31 08:01] LABS: Bilirubin,Urine Negative (Negative); Blood, Urine Large mg/dL (Negative); Glucose,Urine (UA) Negative (Negative); Ketones,Urine Negative (Negative); Nitrite,Urine Negative (Negative); Protein,Urine >500 MG/DL; Urine Specific Gravity 1.015 (1.001-1.035); Urine Urobilinogen 0.2 EU/DL (0.2-1.0)
[2018-07-31] MEDS: METOCLOPRAMIDE 10 MG/10 ML UDCUP PO SCH (08:31)
[2018-07-31] MEDS: TAMSULOSIN 0.4 MG CAPSULE PO SCH (08:32)
[2018-07-31] MEDS: PANTOPRAZOLE 40 MG TABLET PO SCH (08:32)
[2018-07-31] MEDS: SERTRALINE 25 MG TABLET PO SCH (08:32)
[2018-07-31] MEDS: THEOPHYLLINE ER 300 MG TABLET PO SCH (08:32)
[2018-07-31] MEDS: CLORAZEPATE 3.75 MG TABLET PO SCH ×3 (08:32→20:42)
[2018-07-31] MEDS: ROFLUMILAST 500 MCG TABLET PO SCH (08:32)
[2018-07-31] MEDS: MONTELUKAST 10 MG TABLET PO SCH (08:32)
[2018-07-31] MEDS: CYANOCOBALAMIN 1000 MCG/1 ML VIAL IM SCH (08:32)
[2018-07-31] MEDS: NICOTINE 21 MG/24 HR PATCH TRANSDERM SCH (08:37)
[2018-07-31] MEDS ORDERED: LEVOFLOXACIN INJ 500 MG in PREMIX 1 EACH IV SCH (09:00)
[2018-07-31] MEDS ORDERED: LORazepam 2 MG/1 ML VIAL IV ONE (09:36)
[2018-07-31] MEDS ORDERED: MORPHINE 4 MG/1 ML VIAL IV ONE (09:36)
[2018-07-31] MEDS ORDERED: fentaNYL 50 MCG/HR PATCH TRANSDERM SCH (10:00)
[2018-07-31] MEDS ORDERED: OXYBUTYNIN 5 MG TABLET PO PRN (10:33)
[2018-07-31] MEDS: LORazepam 2 MG/1 ML VIAL IV PRN ×2 (15:03→20:43)
[2018-08-01] MEDS: MORPHINE 4 MG/1 ML VIAL IV PRN ×5 (01:27→14:31)
[2018-08-01] MEDS: LORazepam 2 MG/1 ML VIAL IV PRN (01:27)
[2018-08-01] MEDS ORDERED: fentaNYL 75 MCG/HR PATCH TRANSDERM SCH (09:00)
[2018-08-01] MEDS: NICOTINE 21 MG/24 HR PATCH TRANSDERM SCH (09:06)
[2018-08-01] MEDS: CLORAZEPATE 3.75 MG TABLET PO SCH ×2 (09:06→15:39)
[2018-08-01 12:30] VITALS: BP 99/69
[2018-08-01] MEDS: oxyCODONE/ACETAMINOPHEN 5-325 MG TABLET PO PRN (12:49)
[2018-08-07] MEDS ORDERED: APIXABAN 5 MG TABLET PO SCH (09:00)
== END 2018-08-01 15:43 | disposition hospice, inpatient (51) | DRG 190 ==
LOC: EDUNIT# → EDBD → N.ED 01:11 → N.EDINP 03:13 → SUATTDRO 03:13 → N.5E 04:10
PROVIDERS: ADMIT Emergency Medicine; ATTEND Internal Medicine